=== PATIENT | male | born 1985 | race Two or more races ===

== ENCOUNTER 2016-06-08 21:05 | Emergency (ER) | payer OTHER, MEDICAID ==
--- NOTE | 2016-06-08 22:22 | EDPHY ---
H & P Stated Complaint: constipation x2days, feeling unwell, nausea Time Seen by Provider: 06/08/16 22:07 HPI/ROS: CC: Feeling unwell HPI: 31 year old male with a history of autism and schizophrenia presenting complaining of feeling unwell for the last week. He is currently living with his aunt nonfocal. His father in February. And is concerned that he might be constipated as he is not aware of him having a bowel movement last week or so. Patient is complaining of some right arm pain. States he had a blood draw for his Clozaril a monitoring earlier today. Denies any injuries. No fevers or chills. No headache. No nausea or vomiting. Chest pain shortness of breath. There is no pain with moving his arm. There has been no swelling. Is feeling a little bit anxious. ROS: 10 point Review of Systems is negative except as noted in the HPI. Past medical history: Autism, schizophrenia Allergies: No known drug allergies Physical exam: Gen: Awake, Alert, No Distress HEENT: Ears: Bilateral TMs are normal, no erythema or bulging. External auditory canals are clear. Nose: no rhinorrhea Eyes: PERRLA, EOMI Mouth: Moist mucosa Neck: Supple, no JVD Chest: nontender, lungs clear to auscultation Heart: S1, S2 normal, no murmur Abd: Soft, non-tender, no guarding Back: no CVA tenderness, no midline tenderness Ext: no edema, non-tender Skin: no rash Neuro: CN II-XII intact, Sensation grossly intact, Strength 5/5 in bilateral upper and lower extremities - Personal History Current Tetanus/Diphtheria Vaccine: Yes Current Tetanus Diphtheria and Acellular Pertussis (TDAP): Yes Tetanus Vaccine Date: less than 5 years - Medical/Surgical History Hx Asthma: No Hx Chronic Respiratory Disease: No Hx Diabetes: No Hx Cardiac Disease: No Hx Renal Disease: No Hx Cirrhosis: No Hx Alcoholism: No Hx HIV/AIDS: No Hx Splenectomy or Spleen Trauma: No Other PMH: austism, psychosis - Social History Smoking Status: Never smoked Constitutional: Initial Vital Signs Temperature (C) 36.8 C 06/08/16 21:20 Heart Rate 99 06/08/16 21:20 Respiratory Rate 16 06/08/16 21:20 Blood Pressure 137/92 H 06/08/16 21:20 O2 Sat (%) 95 06/08/16 21:20 O2 Delivery Mode Room Air Allergies/Adverse Reactions: No Known Allergies Allergy (Unverified 06/08/16 21:20) Home Medications: Medication Instructions Recorded Clozaril (*) 06/08/16 Medical Decision Making ED Course/Re-evaluation: 31-year-old male coming in complaining of just feeling unwell but has very nonspecific complaints. He has a completely benign exam. Is a extremity exam is unremarkable. Has been abdomen is soft and nontender. Is not appear constipated at this time. He has no palpable: Her stool. He has had increased stressors and has a cousin who is been visiting. He has had a lot of changes in his routine which is very disruptive for his autism. He would like to go home at this time. There is no findings suggestive of acute infection or other process at this time. And is happy to take him home and does not feel there is any thing Ciaran, she is mostly concerned about constipation does not appear constipated on clinical exam today. Will discharge with follow up with primary care physician. Departure - Departure Disposition: Home, Routine, Self-Care Clinical Impression: Anxiety Condition: Good Instructions: Anxiety (ED) Additional Instructions: [facility], call them tomorrow for further assistance. Follow up with primary care physician in 2-3 days for re-evaluation for any concerns. Referrals: Priyanka Arthur MD [Medical Doctor] - As per Instructions
[2016-06-08 22:31] VITALS: BP 132/88; PULSE 95; RESP 18; TEMP 98.6; O2SAT 98
== END 2016-06-08 22:34 | disposition home or self-care (01) ==
DX: F41.9 Anxiety disorder, unspecified (principal)
CPT/HCPCS: 85025-PO

== ENCOUNTER → 2017-03-07 | Outpatient (CLI) | payer OTHER, MEDICAID | LOC: CIMAGING 11:14 | PROVIDERS: ATTEND Psychiatry & Neurology Neurology | DX: R41.3 Other amnesia (principal); F25.0 Schizoaffective disorder, bipolar type | CPT/HCPCS: 70450-PO ==

== ENCOUNTER 2017-03-28 14:13 | Emergency (ER) | payer OTHER, MEDICAID ==
--- NOTE | 2017-03-28 15:21 | EDPHY ---
H & P Stated Complaint: psych eval--not si or hi--off meds-?? - Personal History Current Tetanus/Diphtheria Vaccine: Unsure Current Tetanus Diphtheria and Acellular Pertussis (TDAP): Unsure Tetanus Vaccine Date: less than 5 years - Medical/Surgical History Hx Asthma: No Hx Chronic Respiratory Disease: No Hx Diabetes: No Hx Cardiac Disease: No Hx Renal Disease: No Hx Cirrhosis: No Hx Alcoholism: No Hx HIV/AIDS: No Hx Splenectomy or Spleen Trauma: No Other PMH: austism, psychosis - Social History Smoking Status: Never smoked Time Seen by Provider: 03/28/17 14:42 HPI/ROS: CHIEF COMPLAINT: Irritability, agitation, history of autism spectrum disorder HISTORY OF PRESENT ILLNESS: 31-year-old male history of autism spectrum disorder [facility], lives with aunt, in the ER with onto after she took him [facility], they referred him to the ER for evaluation did not feel he met criteria for an M1 hold that time. No SI or HI. The aunt describes the patient has been experiencing increased agitation, has been pacing incessantly, experiencing insomnia, feels that he is not adequately managed on his current cause rule prescription/dose. PRIMARY CARE PROVIDER: REVIEW OF SYSTEMS: A ten point review of systems was performed and is negative with the exception of the items mentioned in the HPI PAST MEDICAL & SURGICAL HISTORY: Autism spectrum disorder SOCIAL HISTORY:lives with aunt PHYSICAL EXAM (Prior to examination, patient consented to physical exam, hands were washed and my usual and customary physical exam procedures followed) 1) GENERAL: poorly kept, pacing , alert and oriented. Appears to be in no acute distress. He is pacing 2) HEAD: Normocephalic, atraumatic 3) HEENT: Pupils equal, round, reactive to light bilaterally. Sclera anicteric. 4) NECK: Full range of motion, no meningeal signs. 5) LUNGS: Clear auscultation bilaterally, no wheezes, no rhonchi, no retractions. 6) HEART: Regular rate and rhythm, no murmur, no heave, no gallop. 7) ABDOMEN: No guarding, no rebound, no focal tendernessn, 8) MUSCULOSKELETAL: No peripheral edema or discoloration. 9) BACK: no obvious trauma, no visual or palpable abnormality. 10) SKIN: No rash, no petechiae. 11) Psychiatric: Patient is oriented X 3, there is no agitation. DIFFERENTIAL DIAGNOSIS: in no particular order including but not limited to autism spectrum disorder, suicidal ideation, homicidal ideation (George Florian Jnaae) Constitutional: Initial Vital Signs Temperature (C) 37.0 C 03/28/17 14:30 Heart Rate 81 03/28/17 14:30 Respiratory Rate 16 03/28/17 14:30 Blood Pressure 114/80 03/28/17 14:30 O2 Sat (%) 97 03/28/17 14:30 O2 Delivery Mode Room Air Allergies/Adverse Reactions: No Known Allergies Allergy (Unverified 06/08/16 21:20) Home Medications: Medication Instructions Recorded Clozaril (*) 06/08/16 Medical Decision Making ED Course/Re-evaluation: 3:20 p.m.: At this time I do not think the patient meets criteria for an M1 hold. He is pacing and appears anxious. Will administer oral Ativan and re- evaluate. 5:00 p.m.: Care turned over to Dr. Prashanth Garcia at this time (Geroge Florian Janae) Other Provider: Patient remained stable over course of my shift. Signed out to Dr. Bee at 11pm. (Prashanth Garcia) - Data Points Laboratory Results: Laboratory Results 03/28/17 15:20 03/28/17 15:20 Medications Given: Discontinued Medications Clozapine (Clozaril) 200 mg PO EDNOW ONE Stop: 03/28/17 19:27 Last Admin: 03/28/17 19:45 Dose: 200 mg Diazepam (Valium) 5 mg PO EDNOW ONE Stop: 03/28/17 15:25 Last Admin: 03/28/17 15:26 Dose: 5 mg Diazepam (Valium) 5 mg PO EDNOW ONE Stop: 03/28/17 20:06 Last Admin: 03/28/17 20:24 Dose: 5 mg Diazepam (Valium) 5 mg PO EDNOW ONE Stop: 03/28/17 21:42 Last Admin: 03/29/17 09:29 Dose: 5 mg Diazepam (Valium) 5 mg PO EDNOW ONE Stop: 03/29/17 10:27 Last Admin: 03/29/17 10:30 Dose: 5 mg Lorazepam (Ativan) 1 mg PO EDNOW ONE Stop: 03/28/17 15:24 Last Admin: 03/28/17 15:32 Dose: Not Given Nicotine (Nicoderm Cq) 14 mg TD ONCE ONE Stop: 03/29/17 05:27 Last Admin: 03/29/17 05:49 Dose: 14 mg Olanzapine (Zyprexa Zydis) 5 mg PO EDNOW ONE Stop: 03/28/17 21:25 Last Admin: 03/28/17 21:32 Dose: 5 mg Olanzapine (Zyprexa Zydis) 10 mg PO EDNOW ONE Stop: 03/29/17 11:09 Last Admin: 03/29/17 11:13 Dose: 10 mg Departure - Departure Clinical Impression: Autism spectrum disorder Referrals: NONE *PRIMARY CARE P,. [Primary Care Provider] - As per Instructions
[2017-03-28] MEDS ORDERED: LORazepam 1 MG TAB PO ONE (15:23)
[2017-03-28] MEDS ORDERED: DIAZEPAM 5 MG TAB PO ONE ×3 (15:24→21:41)
[2017-03-28] MEDS ORDERED: DIAZEPAM 5 MG TAB ONE (15:25)
[2017-03-28 15:28] LABS: % IMMATURE GRANULYOCYTES 0.1 % (0.0-1.1); ABSOLUTE IMMATURE GRANULOCYTES 0.01 10^3/uL (0.00-0.10); ADD DIFF? NO; ADD MORPH? NO; ADD SCAN? NO; ATYPICAL LYMPHOCYTE FLAG 0 (0-99); FRAGMENT RBC FLAG 0 (0-99); HEMOGLOBIN 16.7 g/dL (13.7-17.5); LEFT SHIFT FLG 0 (0-99); LIPEMIA HEMOLYSIS FLAG 90 (0-99); MEAN CELL HEMOGLOBIN CONCENTR. 35.5 g/dL (32.4-36.7); MEAN CELL VOLUME 87.2 fL (81.5-99.8); MEAN PLATELET VOLUME 11.1 fL (8.7-11.7); PLATELET CLUMPS FLAG 0 (0-99); PLATELET COUNT 194 10^3/uL (150-400); RED BLOOD CELL COUNT 5.39 10^6/uL (4.40-6.38); RED CELL DISTRIBUTION WIDTH 12.4 % (11.5-15.2)
[2017-03-28 15:42] LABS: ANION GAP 16 mEq/L (8-16); CALCIUM 9.3 mg/dL (8.5-10.4); CARBON DIOXIDE 20 mEq/l (22-31); CHLORIDE 109 mEq/L (97-110); CREATININE 0.8 mg/dL (0.7-1.3); ETHANOL SERUM < 10 mg/dL (0-10); GLOMERULAR FILTRATION RATE > 60; GLUCOSE 109 mg/dL (70-100); POTASSIUM 4.4 mEq/L (3.5-5.2); SODIUM 145 mEq/L (134-144)
[2017-03-28] MEDS: cloZAPine 100 MG TAB PO ONE (19:45)
[2017-03-28] MEDS ORDERED: OLANZapine DISINTEGR 5 MG TAB PO ONE (21:24)
[2017-03-29] MEDS ORDERED: NICOTINE 14 MG/24 HR PATCH TD ONE (05:26)
[2017-03-29] MEDS ORDERED: DIAZEPAM 5 MG TAB ONE (09:28)
[2017-03-29] MEDS ORDERED: DIAZEPAM 5 MG TAB PO ONE ×2 (10:26→15:03)
[2017-03-29] MEDS ORDERED: OLANZapine DISINTEGR 10 MG TAB PO ONE ×2 (11:08→20:29)
[2017-03-29] MEDS ORDERED: cloZAPine 100 MG TAB PO ONE (19:16)
[2017-03-29] MEDS ORDERED: OLANZapine DISINTEGR 5 MG TAB PO ONE (20:29)
[2017-03-29] MEDS ORDERED: OLANZapine 5 MG TAB ONE (20:32)
[2017-03-30] MEDS ORDERED: OLANZapine 10 MG TAB PO ONE (03:02)
[2017-03-30] MEDS ORDERED: OLANZapine DISINTEGR 10 MG TAB ONE (03:04)
[2017-03-30] MEDS ORDERED: HALOPERIDOL LACT 5 MG/ML INJ ONE (04:22)
[2017-03-30] MEDS ORDERED: HALOPERIDOL LACT 5 MG/ML INJ IM ONE (04:30)
[2017-03-30] MEDS ORDERED: LORazepam 1 MG TAB ONE (09:44)
[2017-03-30] MEDS ORDERED: LORazepam 1 MG TAB PO ONE (09:51)
[2017-03-30] MEDS: cloZAPine 100 MG TAB PO SCH ×2 (13:08→21:13)
[2017-03-30] MEDS ORDERED: cloZAPine 100 MG TAB PO ONE (19:06)
[2017-03-31] MEDS: cloZAPine 100 MG TAB PO SCH ×3 (08:54→21:45)
[2017-03-31] MEDS ORDERED: DIAZEPAM 5 MG TAB PO ONE ×3 (11:00→23:02)
[2017-03-31] MEDS ORDERED: DIAZEPAM 5 MG TAB ONE (11:03)
[2017-03-31] MEDS ORDERED: OLANZapine DISINTEGR 5 MG TAB PO ONE (18:05)
[2017-04-01] MEDS ORDERED: DIAZEPAM 5 MG TAB PO ONE ×4 (11:04→18:49)
--- NOTE | 2017-04-01 16:02 | ASMTCMCOM ---
CM Note CM Note Notes: EPS following patient with attempted placement As of this morning there was a tentative plan for patient to transfer to a host family home. CM met with Libertad Coronado , shared living coordinator with [place], as well as Kimber (EPS worker). Patient was evaluated as "inappropriate" for safe transport and placement in a host family home (see EPS notes for further details). Patient's aunt, Rubina is present for assessment. Kimber with EPS staes that she will continue to work on options for placement of patient this evening. CM has offered to assist in any way we can and will continue to follow with EPS Date Signed: 04/01/2017 04:02 PM Electronically Signed By:Randa Martinez RN
[2017-04-01] MEDS ORDERED: SENNOSIDES 1 TAB PO ONE (16:32)
[2017-04-01] MEDS ORDERED: OLANZapine 5 MG TAB ONE (19:32)
[2017-04-01] MEDS ORDERED: DIAZEPAM 5 MG TAB ONE (19:33)
[2017-04-01] MEDS: DIAZEPAM 5 MG TAB PO ONE ×2 (20:00→20:50)
[2017-04-01] MEDS: cloZAPine 100 MG TAB PO ONE ×3 (20:00→21:53)
[2017-04-01] MEDS: OLANZapine 5 MG TAB PO SCH ×2 (20:00→20:57)
[2017-04-01] MEDS ORDERED: OLANZapine 10 MG/2 ML VIAL IM ONE (20:41)
[2017-04-01] MEDS ORDERED: OLANZapine 10 MG/2 ML VIAL ONE (20:43)
[2017-04-02] MEDS ORDERED: OLANZapine DISINTEGR 5 MG TAB PO ONE (08:05)
[2017-04-02] MEDS ORDERED: cloZAPine 100 MG TAB PO SCH (09:00)
[2017-04-02] MEDS ORDERED: OLANZapine 10 MG/2 ML VIAL ONE (09:02)
[2017-04-02] MEDS ORDERED: OLANZapine 10 MG/2 ML VIAL IM ONE (09:07)
[2017-04-02] MEDS ORDERED: KETAMINE 500 MG/10 ML VIAL IM PRN (09:50)
[2017-04-02] MEDS ORDERED: MIDAZOLAM 10 MG/2 ML VIAL IM ONE (09:51)
[2017-04-02] MEDS ORDERED: DIAZEPAM 5 MG TAB ONE (09:57)
[2017-04-02] MEDS ORDERED: DIAZEPAM 2 MG TAB PO ONE (10:01)
[2017-04-02 10:30] VITALS: TEMP 97.5
[2017-04-02] MEDS ORDERED: MIDAZOLAM 2 MG/2 ML VIAL ONE ×2 (14:26→14:27)
[2017-04-02 14:44] VITALS: BP 110/79; PULSE 100; RESP 18; O2SAT 96
== END 2017-04-02 14:45 ==
DX: F84.0 Autistic disorder (principal)
CPT/HCPCS: 96372; 99285; J2250; 80305; G0480

== ENCOUNTER 2017-04-17 23:22 | Inpatient (IN) | payer OTHER, MEDICAID ==
--- NOTE | 2017-04-17 23:26 | EDPHY ---
Addendum entered and electronically signed by Israel Ceballos MD 04/19/17 15: 50: The patient will be turned over to Dr. Willem Mohr at shift change pending psychiatric disposition. Addendum entered and electronically signed by Israel Ceballos MD 04/19/17 09: 01: I assumed care of the patient at 7 o'clock in the morning pending psychiatric disposition. I did order 10 mg of IV Valium at 9:00 a.m.. Original Note: H & P Source: Patient, EMS - Personal History Tetanus Vaccine Date: less than 5 years - Medical/Surgical History Hx Asthma: No Hx Chronic Respiratory Disease: No Hx Diabetes: No Hx Cardiac Disease: No Hx Renal Disease: No Hx Cirrhosis: No Hx Alcoholism: No Hx HIV/AIDS: No Hx Splenectomy or Spleen Trauma: No Other PMH: austism, psychosis - Social History Smoking Status: Never smoked HPI/ROS: HPI CHIEF COMPLAINT: Aggressive behavior HISTORY OF PRESENT ILLNESS: This patient is a 31-year-old male, presents to the emergency room by EMS and police in 4 point restraints and a spit mask, his aunt who has healthcare [id number] called 911 as the patient has had aggressive behavior at home that she could not control. The aunt called police for assistance, and the patient was brought to the er. Upon arrival to the er he actively agitated and spitting through the spit mask at staff. He will not answer any of my questions. He is agitated and aggressive. I am unable to obtain any history from him upon arrival. Past Medical History: Autism, ?schizophrenia. Past Surgical History: No recent surgery Social History: Lives with his aunt. Denies drugs alcohol tobacco products. Family History: Noncontributory ROS REVIEW OF SYSTEMS: Limited due to patient's interaction and mental state. Exam Constitutional aggressive behavior, does not answer any of my questions, triage nursing summary reviewed, vital signs reviewed, awake/alert. Eyes normal conjunctivae and sclera, EOMI, PERRLA. HENT normal inspection, atraumatic, moist mucus membranes, no epistaxis, neck supple/ no meningismus, no raccoon eyes. Respiratory clear to auscultation bilaterally, normal breath sounds, no respiratory distress, no wheezing. Cardiovascular rate normal, regular rhythm, no murmur, no edema, distal pulses normal. Gastrointestinal soft, non-tender, no rebound, no guarding, normal bowel sounds, no distension, no pulsatile mass. Genitourinary no CVA tenderness. Musculoskeletal no midline vertebral tenderness, full range of motion, no calf swelling, no tenderness of extremities, no meningismus, good pulses, neurovascularly intact. Skin pink, warm, & dry, no rash, skin atraumatic. Neurologic awake, alert and oriented x 3, AAOx3, moves all 4 extremities equally, motor intact, sensory intact, CN II-XII intact Psychiatric agitated, aggressive. Heme/Lymph/Immune no lymphadenopathy. Differential Diagnosis: Includes but is not limited to in a particular order acute aggressive behavior, mood disorder, bipolar disorder, drug intoxication, psychosis Medical Decision Making: Plan for this patient due to his aggressive behavior and spitting at staff he will need to be sedated, I have ordered him 10 mg IM Zyprexa. We will get him out of 4 point restraints as soon as possible once he is sleepy and not spitting and aggressive with staff. At this time he is going to need medication for his safety as well as staff safety. Re-evaluation: 0134: Detainer placed due to aggressive behavior/threat to staff and himself. 0134: Patient is agitated sitting up in bed and screaming. He has already had Zyprexa 10 mg IM, additionally he has had 10 mg IV Valium. I have ordered him 50 mg IV Benadryl and 20 mg IM Geodon. Patient will be placed on full stained glass installer, closely observed, IV fluids. 0155: Patient is acutely agitated and screaming he is requiring a [place] belt and security at bedside. He is agitated and screaming and shaking. This despite 10 mg IV Valium, 20 mg IM Geodon, 50 mg IV Benadryl, 10 mg IM Zyprexa. I have ordered him IV fluids to prevent rhabdomyolysis. Additionally I have now ordered him 5 mg IV Versed for ongoing agitation. 0326: Patient re-evaluated. Patient is sleeping. He is on full stained glass installer heart rate 71. Pulse ox 99% on 2 L nasal cannula, blood pressure 112/ 67. Resting comfortably. 0500AM patient became aggressive and required 20 mg IM Geodon, 50 mg IM Benadryl. No resting comfortably. 0645: Patient sleeping. Patient signed over to Dr. Ceballos at 7am shift-change. Pending Placement. 0700AM 04/20/17: Patient has been sleeping. No acute events overnight. Before did receive medication earlier before my shift. Patient has not had anything oral to eat today I have ordered him another L of fluid to keep him well hydrated. Per nursing staff he is drinking fluids but not eating. Psychiatry is to see him today. Patient signed over to Dr. Barnes at 7am (Raman Wilson) Constitutional: Initial Vital Signs Heart Rate 76 04/17/17 23:33 Respiratory Rate 15 04/17/17 23:33 Blood Pressure 126/69 H 04/17/17 23:33 O2 Sat (%) 96 04/17/17 23:33 O2 Delivery Mode Room Air O2 (L/minute) 2 Allergies/Adverse Reactions: buspirone [From BuSpar] Allergy (Verified 03/30/17 12:34) Anxiety citalopram [From Celexa] Allergy (Verified 03/30/17 12:34) MANIC lorazepam [From Ativan] Allergy (Verified 03/30/17 12:34) SEDATION/ISOLATION/"ACTING OUT" paroxetine [From Paxil] Allergy (Verified 03/30/17 12:34) Anxiety ziprasidone [From Geodon] Allergy (Verified 03/30/17 12:34) Other-Enter Comments Home Medications: Medication Instructions Recorded Iron/FA/Dha/Epa/Fad/Nadh/Mv47 1 each PO DAILY 04/20/17 [Enlyte Softgel] Medical Decision Making ED Course/Re-evaluation: I assumed care of the patient 0700 pending psychiatric disposition. (Israel Ceballos) 4:45 p.m.. Patient is now agitated. He has been given Zyprexa and Valium and ketamine and Geodon. He will be given Valium and Zyprexa. (Willem Mohr) Other Provider: Care assumed from Dottie at 700 with disposition pending; case management and EPS to be involved. 714: Vital signs at this time include temperature 36.3degrees, afebrile. 1330: The patient had EPS evaluation, plan for inpatient psychiatric placement , getting more agitated and trying to room around the emergency department naked. Spitting at people and verbally abusive, 10 mg of IM Zyprexa administered. 1350: Valium 10mg for continued agitation. 1420: now on mental health hold by phone specialist from [facility], plan to admit to critical access hospital. 1500: Signed out to Julia, nolberto pending. (Oneal Deleon) I assumed care of this patient at 3:00 p.m. from change of shift from Dr Oneal Deleon. At 3:30 p.m. I was asked to provide additional sedation for the patient. Patient had previously received 10 mg of IM Zyprexa and 10 mg of Valium IV approximately an hour ago. Chart was reviewed. Patient required significant medications last night in order to provide sedation for his safety. He received 20 mg of Geodon, patient 10 mg of Valium, 2 mg of Benadryl. This provided sedation. Patient was reexamined at midnight. He is sleeping. He has been somewhat restless but overall has been following some simple commands. Of note he has been incontinent is in an adult diaper. We have not obtained a urinalysis. Discussed possibility of placing a [place] catheter to keep the patient dry as well as to obtain a urine sample. Patient's care was assumed by Dr. Raman Wilson at 12 midnight. We are awaiting placement. (Osiris Dumont) 7:30 a.m. on my evaluation the patient is lying in bed with his eyes open. He appears to be somewhat catatonic. He is not rigid. He has not been eating for the last 3 days. His glucose is low. His bicarb is decreasing. His CK is increasing. He has received 3 L of IV fluid in the last 3 days. We will start him on D5 normal saline. I think that the patient will require medical admission as we continue to work on psychiatric treatment and placement. This is a very difficult patient and very difficult situation. I feel that the patient would likely benefit from long-term state psychiatric hospitalization but at least for the short time will need a combination of medical/psychiatric care 7:40 a.m. I discussed the case with billing receiving who agrees with medical admission at this point and would very much appreciate psychiatrists input . ( Daniel Barnes) Care Turn Over: Care to Dr. Wilson at 11:00 p.m. (Willem Mohr) - Data Points Laboratory Results: Laboratory Results 04/20/17 06:40 04/20/17 06:40 Medications Given: Enoxaparin Sodium (Lovenox) 40 mg SC DAILY SERENITY Stop: 10/18/17 08:59 Last Admin: 04/21/17 08:19 Dose: 40 mg Dextrose/Sodium Chloride (D5w 1/2 Ns) 1,000 mls @ 200 mls/hr IV CONT SERENITY Stop: 10/17/17 10:59 Last Admin: 04/21/17 15:30 Dose: 1,000 mls Lorazepam (Ativan Injection) 0.5 - 1 mg IVP Q4 PRN PRN Reason: Anxiety, Unable to Take PO Stop: 10/17/17 16:41 Last Admin: 04/21/17 08:19 Dose: 1 mg Miscellaneous Medication (Iron/Fa/Dha/Epa/Fad/Nadh/Mv47 [Enlyte Softgel]) 1 each PO DAILY SERENITY Stop: 10/17/17 16:44 Last Admin: 04/21/17 08:28 Dose: Not Given Discontinued Medications Clozapine (Clozaril) 12.5 mg PO BID SERENITY Stop: 10/17/17 20:59 Last Admin: 04/20/17 19:04 Dose: 12.5 mg Diazepam (Valium Injection) 5 mg IVP EDNOW ONE Stop: 04/17/17 23:43 Last Admin: 04/17/17 23:56 Dose: 5 mg Diazepam (Valium Injection) 5 mg IVP EDNOW ONE Stop: 04/18/17 01:01 Last Admin: 04/18/17 01:11 Dose: 10 mg Diazepam (Valium Injection) 10 mg IVP EDNOW ONE Stop: 04/18/17 13:53 Last Admin: 04/18/17 13:59 Dose: 10 mg Diazepam (Valium Injection) 10 mg IVP EDNOW ONE Stop: 04/18/17 15:20 Last Admin: 04/18/17 15:43 Dose: 10 mg Diazepam (Valium Injection) 10 mg IVP EDNOW ONE Stop: 04/19/17 04:02 Last Admin: 04/19/17 04:09 Dose: 10 mg Diazepam (Valium Injection) 10 mg IVP EDNOW ONE Stop: 04/19/17 08:58 Last Admin: 04/19/17 09:08 Dose: 10 mg Diazepam (Valium) 5 mg PO EDNOW ONE Stop: 04/19/17 16:58 Last Admin: 04/19/17 17:33 Dose: Not Given Diazepam (Valium Injection) 5 mg IVP ONCALL ONE Stop: 04/20/17 10:54 Last Admin: 04/20/17 09:00 Dose: 5 mg Diphenhydramine HCl (Benadryl Injection) 50 mg IVP EDNOW ONE Stop: 04/18/17 01:34 Last Admin: 04/18/17 01:39 Dose: 50 mg Diphenhydramine HCl (Benadryl Injection) 50 mg IVP EDNOW ONE Stop: 04/18/17 15:20 Last Admin: 04/18/17 15:43 Dose: 50 mg Diphenhydramine HCl (Benadryl Injection) 50 mg IM EDNOW ONE Stop: 04/19/17 04:33 Last Admin: 04/19/17 04:39 Dose: 50 mg Sodium Chloride (Ns) 1,000 mls @ 0 mls/hr IV ONCE ONE PRN Reason: Wide Open Stop: 04/17/17 23:36 Last Admin: 04/17/17 23:56 Dose: 1,000 mls Sodium Chloride (Ns) 1,000 mls @ 0 mls/hr IV ONCE ONE PRN Reason: Wide Open Stop: 04/18/17 01:25 Last Admin: 04/18/17 02:17 Dose: 1,000 mls Sodium Chloride (Ns) 1,000 mls @ 0 mls/hr IV ONCE ONE PRN Reason: Wide Open Stop: 04/18/17 05:26 Last Admin: 04/18/17 05:45 Dose: 1,000 mls Sodium Chloride (Ns) 1,000 mls @ 0 mls/hr IV ONCE ONE PRN Reason: Wide Open Stop: 04/19/17 06:41 Last Admin: 04/19/17 05:50 Dose: 1,000 mls Sodium Chloride (Ns) 1,000 mls @ 0 mls/hr IV EDNOW ONE; Wide Open PRN Reason: Protocol Stop: 04/20/17 06:21 Last Admin: 04/20/17 06:44 Dose: 1,000 mls Dextrose/Sodium Chloride (D5w Ns) 1,000 mls @ 100 mls/hr IV CONT SERENITY Stop: 10/17/17 07:29 Last Admin: 04/20/17 07:44 Dose: 1,000 mls Ketamine HCl (Ketamine) 300 mg IM EDNOW ONE Stop: 04/19/17 12:05 Last Admin: 04/19/17 12:25 Dose: 300 mg Lorazepam (Ativan) 1 mg PO EDNOW ONE Stop: 04/19/17 16:57 Last Admin: 04/19/17 18:53 Dose: Not Given Midazolam HCl (Versed) 5 mg IVP EDNOW ONE Stop: 04/18/17 01:56 Last Admin: 04/18/17 01:58 Dose: 5 mg Olanzapine (Zyprexa Im Injection) 5 mg IM EDNOW ONE Stop: 04/17/17 23:32 Last Admin: 04/17/17 23:58 Dose: Not Given Olanzapine (Zyprexa Im Injection) 10 mg IM EDNOW ONE Stop: 04/17/17 23:33 Last Admin: 04/17/17 23:56 Dose: 10 mg Olanzapine (Zyprexa Im Injection) 10 mg IM EDNOW ONE Stop: 04/18/17 13:27 Last Admin: 04/18/17 13:26 Dose: 10 mg Olanzapine (Zyprexa Zydis) 10 mg PO EDNOW ONE Stop: 04/19/17 11:12 Last Admin: 04/19/17 11:33 Dose: 10 mg Olanzapine (Zyprexa Zydis) 10 mg PO EDNOW ONE Stop: 04/19/17 16:57 Last Admin: 04/19/17 17:33 Dose: Not Given Ziprasidone (Geodon) 20 mg IM ONCE ONE Stop: 04/18/17 01:33 Last Admin: 04/18/17 01:40 Dose: 20 mg Ziprasidone (Geodon) 20 mg IM ONCE ONE Stop: 04/18/17 15:18 Last Admin: 04/18/17 15:43 Dose: 20 mg Ziprasidone (Geodon) 20 mg IM EDNOW ONE Stop: 04/19/17 04:31 Last Admin: 04/19/17 04:39 Dose: 20 mg Departure - Departure Disposition: [facility] Clinical Impression: Aggressive behavior, Autism spectrum disorder, Dehydration Condition: Fair
[2017-04-17] MEDS ORDERED: OLANZapine 10 MG/2 ML VIAL IM ONE ×2 (23:31→23:32)
[2017-04-17] MEDS ORDERED: NS 1,000 ML IV ONE (23:35)
[2017-04-17] MEDS ORDERED: DIAZEPAM 10 MG/2 ML SYR IVP ONE (23:42)
[2017-04-18 00:16] LABS: PLATELET COUNT 220 10^3/uL (150-400)
[2017-04-18] MEDS ORDERED: DIAZEPAM 10 MG/2 ML SYR ONE (00:55)
[2017-04-18 00:57] LABS: CREATINE KINASE 788 IU/L (0-224)
[2017-04-18] MEDS ORDERED: DIAZEPAM 10 MG/2 ML SYR IVP ONE ×3 (01:00→15:19)
[2017-04-18] MEDS ORDERED: NS 1,000 ML IV ONE ×2 (01:24→05:25)
[2017-04-18] MEDS ORDERED: ZIPRASIDONE MESYLATE 20 MG VIAL IM ONE ×2 (01:32→15:17)
[2017-04-18] MEDS ORDERED: MIDAZOLAM 2 MG/2 ML VIAL IVP ONE (01:55)
[2017-04-18] MEDS ORDERED: MIDAZOLAM 10 MG/2 ML VIAL ONE (01:56)
[2017-04-18] MEDS ORDERED: OLANZapine 5 MG TAB PO ONE (12:24)
[2017-04-18] MEDS ORDERED: OLANZapine 10 MG/2 ML VIAL IV ONE (13:21)
[2017-04-18] MEDS ORDERED: OLANZapine 10 MG/2 ML VIAL IM ONE (13:26)
--- NOTE | 2017-04-18 16:46 | ASMTCMCOM ---
CM Note CM Note Notes: Patient brought into the ED from home where he has been staying with his Aunt Rubina ([phone]). Patient had become aggressive at home and required restraints and a spit quiles when transported to the ED. Patient required multiple doses of various sedating medications. Patient was finally able to be evaluated by [facility] Services (formally EPS) today. Patient has been place on an M1 and [facility] is looking for placement, possibly [facility]. Spoke with Libertad Coronado, Rn Resource Nurse at [facility] ([phone]) who is very familiar with patient and the last month's occurrences. Pt had been discharged from [facility] ED to [facility] ([phone]) on 04/02/17. Per Libertad, patient then refused to eat or drink while at and they also did a "medication wash" where they discontinued all of his medications. Patient became severely dehydrated and was admitted to [facility] for rhabdomyolysis for a couple of days. [facility] was then unable to take patient back into their care and so the hospital attempted to get him placed but was unsuccessful. Libertad says patient was discharged home with his Aunt Rubina this last Monday04/14/17 with Librium being the only medication he was prescribed at the time. Libertad said patient was being followed by Dr. Wynn (sp?) at [facility] ([phone]) as an outpatient until pt was able to get in with another psychiatrist. This CM called and left a voicemail for Dr Wynn. Libertad states that Anastasiia Valiente, Access Services Librarian at [facility] ([phone]) has started the process of trying to get patient into [facility] ([facility] but this may take "quite some time" and even possibly need to go to court (?). In the meantime, Libertad is hoping patient can be stabilized and get into [facility]. Libertad has been connected with [facility] Mental Health Animation Director and they are working with Anastasiia to get patient appropriately placed. Libertad provided ED CM # in case we can be of any additional assistance. Date Signed: 04/18/2017 04:45 PM Electronically Signed By:Priyanka Chua RN
[2017-04-19] MEDS ORDERED: DIAZEPAM 10 MG/2 ML SYR IVP ONE ×2 (04:01→08:57)
[2017-04-19] MEDS ORDERED: ZIPRASIDONE MESYLATE 20 MG VIAL IM ONE ×3 (04:25→04:33)
[2017-04-19] MEDS ORDERED: NS 1,000 ML IV ONE (06:40)
[2017-04-19] MEDS ORDERED: OLANZapine DISINTEGR 10 MG TAB PO ONE ×2 (11:11→16:56)
[2017-04-19] MEDS ORDERED: KETAMINE 500 MG/10 ML VIAL IM ONE (12:04)
--- NOTE | 2017-04-19 15:29 | ASMTCMCOM ---
CM Note CM Note Notes: I have discussed discharge planning with [facility] at [facility] and [facility] at [facility] Per Shanice, [facility] has not been able to find placement for patient and they will be reaching out to [facility] in an effort to coordinate care and D/C planning. [facility] continues to communicate with [facility] as well as to work on alternative D/C planning. CM will continue to follow and asssit where/when possible Date Signed: 04/19/2017 03:29 PM Electronically Signed By:Randa Martinez RN
[2017-04-19] MEDS ORDERED: LORazepam 1 MG TAB PO ONE (16:56)
[2017-04-19] MEDS ORDERED: DIAZEPAM 5 MG TAB PO ONE (16:57)
[2017-04-20] MEDS ORDERED: NS 1,000 ML IV ONE (06:20)
[2017-04-20 06:47] LABS: PLATELET COUNT 247 10^3/uL (150-400)
[2017-04-20 07:07] LABS: CREATINE KINASE 1006 IU/L (0-224)
[2017-04-20] MEDS ORDERED: D5W NS 1,000 ML IV SCH (07:30)
[2017-04-20] MEDS ORDERED: DIAZEPAM 10 MG/2 ML SYR ONE (08:47)
[2017-04-20] MEDS ORDERED: DIAZEPAM 10 MG/2 ML SYR IVP ONE (10:53)
[2017-04-20] MEDS ORDERED: ACETAMINOPHEN 325 MG TAB PO PRN (11:28)
[2017-04-20] MEDS ORDERED: ONDANSETRON 4 MG/2 ML VIAL IVP PRN (11:28)
[2017-04-20] MEDS ORDERED: ONDANSETRON DISINTEGRATING 4 MG TAB PO PRN (11:28)
[2017-04-20] MEDS ORDERED: LORazepam 2 MG/ML INJ IVP PRN (11:28)
--- NOTE | 2017-04-20 12:13 | GHP ---
[f rep st] HISTORY AND PHYSICAL DATE OF ADMISSION: 04/20/2017 HISTORY OF PRESENT ILLNESS: This is a 31-year-old male who presented to the emergency department wit h severe agitation and aggressive behavior. He initially presented on April 17 with aggressive be havior in which he was spitting at patients and very difficult to control. He apparently lives with his aunt, and when he became aggressive at home she called for assistance, and the patient was lilia t to the ED where he was agitated, aggressive and spitting and had a spit mask placed on him. Effort s were made to calm the gentleman throughout the next 24 hours and obtain a psychiatric evaluation. During that time, he received several doses of Zyprexa, Ativan, Valium, Geodon. He would variously c neena and then become more and more agitated. Ultimately over the next 24 hours it was decided that he needed acute admission, and the admission has now been obtained. He was then admitted to the ICU wh ere he once again became aggressive and was given Valium 5 mg IV. Because of his prolonged state of aggression, agitation and motor activity, consideration was given for rhabdomyolysis and it is noted that his CK is approximately 1000 with a sodium of 145. He had received IV fluids of D5 normal salin e in the emergency department during much of his stay but has been now changed to D5 half-normal sali ne due to the hypernatremia. We are aggressively hydrating him and maintaining sedation. PAST MEDICAL HISTORY: There is no other past medical history available. His aunt currently is not a vailable, and this is our initial information of this gentleman here at [facility]. I have seen him in the ICU where he is now calm and simply just staring forward. He does not respond t o any questions, but he is now sedated. He is not aggressive, and he is not spitting. He is being m aintained in 4-point restraints. Further efforts will be made to obtain information on his past hist ory. MEDICATIONS: That are known at home so far is only an iron supplementation. He carries a diagnosis of anxiety and autism spectrum disorder. ALLERGIES: Reported to be to buspirone, citalopram, lorazepam, paroxetine ziprasidone. FAMILY HISTORY: Not available. SOCIAL HISTORY: Not available. REVIEW OF SYSTEMS: Could not be obtained from the patient or the medical record, although in review of the record there is no evidence that he has had an acute illness or acute trauma. PHYSICAL EXAMINATION: GENERAL: I am seeing the gentleman in the ICU. At this point he is calm but has received significant doses of medications to achieve this. On his arrival in the ICU, he again r equired Valium 5 mg IV for sedation as he became agitated. He is maintained on 4-point restraints. The patient does not respond to verbal requests. He is alert, sitting up in the bed, staring and gregg ears in no distress. VITAL SIGNS: At this time are normal with normal oxygenation on room air. ELIZABETH NT: No signs of scalp trauma or facial trauma. The gentleman stares straight ahead and then prefers to look to the right. He does not track his eye movements. Tympanic membranes are man bilaterally . Throat appears to be benign without signs of trauma. LUNGS: Clear without wheezing or rales, alt cassandra the patient did not cooperate with deep breaths. HEART: Regular rate and rhythm. Sinus rhyth m and a regular rate of approximately 80. S1 and S2 are normal without gallops. JVP could not be we ll assessed but appeared to be normal. ABDOMEN: Nontender, benign, without masses or tenderness or signs of trauma. EXTREMITIES: No edema, cyanosis, or clubbing, signs of trauma or track linder. JAKE ROLOGIC: Shows a gentleman who is alert but does not respond verbally and interact in a cooperative fashion. He is not aggressive at this time. His cranial nerves appear to be grossly intact, althoug h he did not track eye movements. Motor and sensory function appear grossly intact. Babinskis are p lantar. LABORATORY: WBC is normal at 9000, hemoglobin is now hemoconcentrated at 18.3 with a normal differen tial. Chemistry panel shows hypernatremia with sodium of 145 with an anion gap of 20. His alcohol l evel was less than 10. ASSESSMENT: 1. Acute agitation and aggressive behavior. 2. Acute psychosis of an uncharacterized type. 3. Hypernatremia, metabolic acidosis, secondary to prolonged agitation. 4. Rhabdomyolysis with a CK of 1000 secondary to agitation. PLAN: The gentleman will be admitted on an M1 hold in the ICU for clearance of his rhabdomyolysis an d maintaining sedation. Restraints will be used as necessary. Changing his IV fluids from D5 normal saline to D5 half-normal saline and increasing his rate due to his rhabdomyolysis and metabolic acid osis. Electrolytes will be watched on a q.6-12 basis, and a psychiatric consultation obtained. In a ddition, we will review his numerous recent medications. An ECG will be performed to assess his QT i nterval. At this point, I am not going to keep the gentleman on the corridor redevelopment manager as it is quite d ifficult to do due to his variable state of cooperation but will repeat ECGs as needed and as concern ed. Psychiatry will be needed regarding his Clozaril. He has probably not taken any Clozaril for th e last several days, and thus the initial dose will have to start again and loading. His DVT prophylaxis will be with Lovenox. CODE STATUS: Full. BILLING: The gentleman will be admitted for inpatient care on an M1 hold /[id number]/MODL
--- NOTE | 2017-04-20 12:42 | ASMTCMCOM ---
CM Note CM Note Notes: Chart reviewed. Patient reviewed in rounds. Medically approaching stablity,main need is Psychiatric evaluation and placement. Dr. Christopher and [facility] services assisting with searching for appropriate placement. CM to follow. Date Signed: 04/20/2017 12:42 PM Electronically Signed By:Selena Graff RN
--- NOTE | 2017-04-20 12:50 | CPEKG ---
Heart Rate: 69 RR Interval: 870 P-R Interval: 160 QRSD Interval: 94 QT Interval: 396 QTC Interval: 425 P Aroda: 92 QRS Aroda: 83 T Wave Aroda: 69 EKG Severity - NORMAL ECG - EKG Impression: SINUS RHYTHM Electronically Signed By: Franky Montoya 20-Apr-2017 16:25:19
--- NOTE | 2017-04-20 17:02 | PDMN ---
Medical Necessity Medical necessity: Pt meets IP criteria per MD; pt on M1 hold for acute psychosis, agitation, aggressive behavior, hypernatremia & rhabdomyolysis; admit to ICU for further workup/monitoring, aggressive hydration, sedation & Psych eval; per H&P & order 04/20/17
[2017-04-20] MEDS: [UNRECOGNIZED DRUG - OTHER] PO SCH (18:11)
[2017-04-20] MEDS: D5W 1/2 NS 1,000 ML IV SCH ×2 (19:04→23:34)
[2017-04-20] MEDS ORDERED: cloZAPine 25 MG TAB PO SCH (21:00)
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
[2017-04-21] MEDS: LORazepam 2 MG/ML INJ IVP PRN ×2 (03:10→08:19)
[2017-04-21] MEDS: D5W 1/2 NS 1,000 ML IV SCH ×4 (04:55→21:06)
[2017-04-21 06:11] LABS: CREATINE KINASE 566 IU/L (0-224)
[2017-04-21] MEDS: ENOXAPARIN 40 MG/0.4 ML SYR SC SCH (08:19)
[2017-04-21] MEDS: [UNRECOGNIZED DRUG - OTHER] PO SCH (08:28)
--- NOTE | 2017-04-21 17:27 | HOSPPROG ---
Hospitalist Progress Note Assessment/Plan: 31 yo male with acute pychosis; required richelle doses of sedation Valium 60mg; benadryl 200mg; ketamine 300 mg; zyprexa 40mg IM; Geodon 60mg; Versed 10mg Psychiatry Rx clozoril as patient had been tapered and possibly withdrawal from this. -acute psychosis -Neuroleptic malignant syndrome: possible but doubt, no fever or rigidity -elecdtroyle disorder -rhabdomyolysis possible 2/2 IM injections and restraints. Improving Plan: sedate with clozoril and ativan only; transfer possible to psychiatry tomorrow if eating and drinking and behavior is settled discussed with Dr Indu Christopher for psychiatry Time: 55 minutes Subjective: no complaints Objective: Vital Signs Temp Pulse Resp BP Pulse Ox 36.6 C 75 18 90/64 L 97 04/21/17 15:58 04/21/17 15:58 04/21/17 15:58 04/21/17 15:58 04/21/17 15:58 Laboratory Results 04/21/17 05:35 04/20/17 04/21/17 04/22/17 05:59 05:59 05:59 Intake Total 3521 150 Output Total 100 Balance 3421 150 - Time Spent With Patient Time Spent with Patient: greater than 35 minutes Time Spent with Patient: Greater than 35 minutes spent on this patients care, greater than 50% of time spent counseling, educating, and coordinating care regarding the above mentioned plan. - Pending Discharge Pending Discharge Within 24 Hours: Yes Pending Discharge Date: 04/22/17 Pending Discharge Time: 11:00 - Physical Exam Constitutional: no apparent distress, other (acutely ill) Eyes: PERRL, anicteric sclera Ears, Nose, Mouth, Throat: moist mucous membranes, hearing normal Cardiovascular: regular rate and rhythym, no murmur, rub, or gallop Respiratory: no respiratory distress, no rales or rhonchi, clear to auscultation Gastrointestinal: normoactive bowel sounds, soft, non-tender abdomen, no palpable masses Genitourinary: no bladder fullness Skin: warm Musculoskeletal: full muscle strength Neurologic: CN II-XII Intact Psychiatric: agitated ICD10 Worksheet Patient Problems: Problems Problem Status Onset Aggressive behavior Acute Autism spectrum disorder Acute Dehydration Acute
[2017-04-21] MEDS ORDERED: cloZAPine 25 MG TAB PO SCH (21:00)
[2017-04-22] MEDS: D5W 1/2 NS 1,000 ML IV SCH (02:10)
[2017-04-22 05:30] LABS: CREATINE KINASE 279 IU/L (0-224)
[2017-04-22] MEDS ORDERED: levETIRAcetam 500 MG in NS 100 ML IV ONE (08:41)
[2017-04-22] MEDS: LORazepam 2 MG/ML INJ IVP PRN ×5 (08:45→22:25)
[2017-04-22] MEDS ORDERED: levETIRAcetam 1,000 MG in NS 100 ML IV ONE (08:51)
--- NOTE | 2017-04-22 10:16 | GCON ---
[f rep st] CONSULTATION NEUROLOGIC CONSULTATION REFERRING PHYSICIAN: Real Apple Jr., MD HISTORY OF PRESENT ILLNESS: This patient is a 31-year-old gentleman, who I have never met before, bu t I am asked to see in neurologic consultation on an emergent basis in the setting of acute seizure a ctivity. The patient was admitted to the hospital on April 17 for acute inappropriate behavior with psychosis, well outlined in the emergency room records. There is also a detailed neurologic pricila cription and psychiatric history and exam from Dr. Christopher, when she first saw him on April 20. Following his arrival to the emergency room, he was receiving a variety of medications that include Z yprexa, Geodon, Valium, ketamine, and Versed in high doses. He had apparently been stable on clozapi ne. However, was eventually taken off this at an outside facility, and that detail I am not complete ly clear on. In any case, he was with his aunt when he decompensated and required attention. There is not mention of any known seizure disorder. Today, around, a little before 9 a.m., he was witnesse d to have an episode of generalized convulsive activity, lasting about 30 seconds, but not a full-blo wn postictal state apparently, and then another event occurred soon after, similar, followed by a thi rd event, where he seemed to have a little more focal movements, but again is not having a classic po stictal lethargy. He went for head CT that shows a possible area of small bleeding in the right post erior parietal region about a cm in size. No evidence of large hemorrhage or stroke. As Dr. Drea smith said, it is an equivocal very small area. In any case, he has not had any more seizure activity since receiving an acute dose of benzodiazepine and is in the process of being loaded with Keppra. He will not initially speak with me to give any more additional history. EXAM: VITAL SIGNS: The blood pressure is 105/61, pulse of 73, respirations 20, temperature 36.7. G ENERAL: He is a little disheveled and poorly groomed, in no acute distress. He is sitting quietly i n the bed, initially holding a magazine, and looking toward it, but I cannot tell if he is actually r eading it. He, for the most part will not answer questions, but then after about 5 minutes, he clear ly stated that he needed to go the bathroom, so he got up on his own, walked to the bathroom and urin ated. His examination participation is limited, but he would look up at me briefly, and seems to hav e normal tracking. Pupils are just about a mm or 2 with limited reactivity. I do not detect any fac ial asymmetry. Motor exam does not reveal focal weakness. I do not detect any evident weakness. He seems to have intact sensory phenomena and his reflexes are brisk, but symmetric. I have also reviewed the head CT and agree with Dr. Carty that there is this very small area in the right occipital or posterior parietal lobe that could represent a small area of bleeding. I do not think this is consistent with a subarachnoid hemorrhage. I do not think he has had a hemorrhagic stroke. In any case, we will likely follow this up in a week or so with a repeat head CT or maybe l ater an MRI, depending on his clinical course. For now, I agree with using benzodiazepine to control any acute seizures. These episodes were probably seizure versus nonepileptic seizure activity. The atypical feature is a relatively minimal postictal state, noted by the nurse, for someone who is hav ing a generalized convulsion. However, we have to err on the possibility of ongoing seizure risk, so I agree with loading him with Keppra and continuing that 500 mg b.i.d. Total unit time of 50 minutes. /[id number]/MODL
[2017-04-22] MEDS: [UNRECOGNIZED DRUG - OTHER] PO SCH (11:06)
[2017-04-22] MEDS ORDERED: PROTOCOL MAGNESIUM 1 DOSE IV PRN (13:18)
[2017-04-22] MEDS ORDERED: PROTOCOL CALCIUM 1 DOSE IV PRN (13:18)
[2017-04-22] MEDS ORDERED: PROTOCOL K PHOSPHATE 1 DOSE IV PRN (13:18)
[2017-04-22] MEDS ORDERED: PROTOCOL POTASSIUM 1 DOSE MISC PRN (13:18)
[2017-04-22] MEDS ORDERED: MAGNESIUM SULF 1 GM/DEXTROSE 100 ML IV ONE (13:26)
[2017-04-22] MEDS: POTASSIUM CL 10 MEQ TAB PO ONE ×2 (13:51→14:33)
[2017-04-22] MEDS: ENOXAPARIN 40 MG/0.4 ML SYR SC SCH (13:53)
--- NOTE | 2017-04-22 17:32 | HOSPPROG ---
Hospitalist Progress Note Assessment/Plan: 31 yo male with acute pychosis; required richelle doses of sedation: Valium 60mg; benadryl 200mg; ketamine 300 mg; zyprexa 40mg IM; Geodon 60mg; Versed 10mg. All given prior to admission in the emergency department. Today the gentleman but a short grand mal seizure with a short postictal state and a 2nd grand mal seizure. He was treated in the ICU with Ativan and then loaded with Keppra. CT scan of the head was ordered and he was consult with Neurology. Currently the only antipsychotic the patient is receiving his Clozaril. Sedation is being achieved with Ativan. CT scan of the head showed a very small intercerebral hemorrhage possibly rate related to trauma prior to his admission. This finding is new as compared to a previous CT scan of January 2017. -acute psychosis of undetermined etiology. Psychiatry is consulting. -Neuroleptic malignant syndrome: possible but doubt, no fever or rigidity -elecdtroyle disorder -rhabdomyolysis possible 2/2 IM injections and restraints. Improving. This is likely secondary IM injections and not clinically significant. Plan: sedate with clozoril and ativan only; stabilize seizure activity with Keppra and is stable and alert may be transferred to Behavioral Medicine on . discussed with Dr Indu Christopher for psychiatry and with Dr. Dav Nunez with Neurology. CT scan was reviewed by myself and with Radiology. Time: 75 min of critical care time Subjective: Patient suffered a grand mal seizure during my examination Objective: Vital Signs Temp Pulse Resp BP Pulse Ox 36.6 C 75 16 97/59 L 98 04/22/17 16:00 04/22/17 16:00 04/22/17 16:00 04/22/17 16:00 04/22/17 16:00 Laboratory Results 04/22/17 05:00 04/21/17 04/22/17 04/23/17 05:59 05:59 05:59 Intake Total 3521 4862 Output Total 100 Balance 3421 4836 - Time Spent With Patient Time Spent with Patient: greater than 35 minutes Time Spent with Patient: Greater than 35 minutes spent on this patients care, greater than 50% of time spent counseling, educating, and coordinating care regarding the above mentioned plan. - Pending Discharge Pending Discharge Within 24 Hours: No Pending Discharge Within 48 Hours: No - Physical Exam Constitutional: other (Grand mal seizure occurring during my exam) Eyes: PERRL, anicteric sclera Ears, Nose, Mouth, Throat: moist mucous membranes Cardiovascular: regular rate and rhythym, no murmur, rub, or gallop Respiratory: no respiratory distress Gastrointestinal: normoactive bowel sounds, soft, non-tender abdomen Genitourinary: no bladder fullness Neurologic: other (Grand mall tonic colonic seizure occurred during my examination. He was postictal with an otherwise symmetric [place] logic exam.) ICD10 Worksheet Patient Problems: Problems Problem Status Onset Aggressive behavior Acute Autism spectrum disorder Acute Dehydration Acute
[2017-04-22] MEDS ORDERED: NS 1,000 ML IV ONE (18:28)
--- NOTE | 2017-04-22 18:52 | SOAPPROG ---
SOAP Progress Note Assessment/Plan: 04/22/17 18:20 Psychiatry consult follow-up: 31yo with autism spectrum d/o, schizoaffective d/o and anxiety d/o admitted to [facility] in ICU setting b/c on M-1, had been behaviorally agitated/aggressive and sexually inappropriate, off Clozapine since inpatient psych at [facility] after 10yr on this medication, then decompensating behaviorally, additionally with poor po intake resulting in medical admit earlier this month for rhabdo/dehydration. Returned home only briefly before returned to ED 04/17. Had received high doses of BZD and psychotropics in ED for management. Admitted to ICU on M-. No evidence for NMS, or BZD w/d, continues minimally/not eating/drinking and receiving IVF, restarted on Clozapine 12.5mg 04/20, increased to 25mg 04/21, and had seizure this am with no known seizure hx. Unclear if related. On interview 04/20, patient did express desire to resume Clozapine, and outpatient psychiatrist reported patient seemed more stable on this med, but per RN last pm and night before, patient was reluctant to take it, although eventually did. Aunt Rubina had reported that patient had been occasionally inconsistently med compliant with Clozapine a few months ago, and began complaining more of side effects, prompting medication "wash out" plan while at [facility] earlier this month. Given reports of being inconsistently agreeable to and compliant with taking Clozapine, which will make compliance with weekly labs (as per protocol) also potentially problematic, and due to seizure this AM, which may or may not be related, although is associated with Clozapine and typically dose-related, will modify psychiatric recommendations as below: -d/c clozapine 25mg hs -start olanzapine 2.5mg hs. may cause carbohydrate cravings as side effect, which in this case may be beneficial to stimulate po intake in this patient -low dose antipsychotics b/c pt genetically more sensitive to effects of D2 blocking antipsychotics (also SSRI's and opiates) -cont with prn Ativan -M-1 . d/w attending Dr. Apple. no indication presently to reinstate an M-1, medically likely not with capacity to leave AMA Objective: Vital Signs Temp Pulse Resp BP Pulse Ox 36.6 C 63 18 80/46 L 97 04/22/17 18:00 04/22/17 18:00 04/22/17 18:00 04/22/17 18:00 04/22/17 18:00 Laboratory Results 04/22/17 17:50 04/21/17 04/22/17 04/23/17 05:59 05:59 05:59 Intake Total 3521 4847 50 Output Total 100 Balance 3421 4847 50 - Pending Discharge Pending Discharge Within 24 Hours: No Pending Discharge Within 48 Hours: No ICD10 Worksheet Patient Problems: Problems Problem Status Onset Aggressive behavior Acute Autism spectrum disorder Acute Dehydration Acute
[2017-04-22] MEDS: POTASSIUM Cl (KCl) 10 MEQ in NS 100 ML IV SCH ×2 (21:30→22:31)
[2017-04-22] MEDS: OLANZapine 2.5 MG TAB PO SCH (22:25)
[2017-04-22] MEDS: levETIRAcetam 500 MG in NS 100 ML IV SCH (22:25)
[2017-04-23 05:47] LABS: PLATELET COUNT 172 10^3/uL (150-400)
[2017-04-23] MEDS ORDERED: MAGNESIUM SULF 1 GM/DEXTROSE 100 ML IV ONE (07:25)
[2017-04-23] MEDS ORDERED: MAGNESIUM SULF 1 GM/DEXTROSE 100 ML BAG IV ONE (07:29)
[2017-04-23] MEDS: POTASSIUM Cl (KCl) 100 ML IV SCH ×2 (07:35→08:25)
[2017-04-23] MEDS: POTASSIUM Cl (KCl) 10 MEQ in NS 100 ML IV SCH (07:41)
[2017-04-23] MEDS: D5W 1/2 NS 1,000 ML IV SCH ×3 (08:00→21:20)
[2017-04-23] MEDS: [UNRECOGNIZED DRUG - OTHER] PO SCH (08:24)
[2017-04-23] MEDS: LORazepam 2 MG/ML INJ IVP PRN ×2 (11:58→20:11)
[2017-04-23] MEDS: levETIRAcetam 500 MG in NS 100 ML IV SCH ×2 (12:19→20:07)
[2017-04-23] MEDS: ENOXAPARIN 40 MG/0.4 ML SYR SC SCH (13:09)
--- NOTE | 2017-04-23 17:05 | HOSPPROG ---
Hospitalist Progress Note Assessment/Plan: 31 yo male with acute pychosis; required richelle doses of sedation: Valium 60mg; benadryl 200mg; ketamine 300 mg; zyprexa 40mg IM; Geodon 60mg; Versed 10mg. All given prior to admission in the emergency department, at the time of admission Yesterday the gentleman had a grand mall seizure when started on Keppra and seen by Neurology. CT scan showed a small intercerebral hemorrhage which neurology believes is true. It is unclear if this was a true seizure or not but he has been treating in that fashion. Psychiatry is seeing concurrently. His clozoril been stopped and he started on Zyprexa at a low dose. Currently the patient is mute and takes limited oral intake and at times is sexually aggressive. He is not taking oral fluids or medications thus it is difficult for discharge to Behavioral Medicine at [facility]. The disposition here will be per Psychiatry. Currently the patient is medically cleared for psychiatric care but being held here because of his poor oral intake and cooperation. -acute seizure and currently on Keppra IV as he is not taking p.o. no further seizures have been seen. Note findings of the CT scan -acute psychosis of undetermined etiology. Psychiatry is consulting. -Neuroleptic malignant syndrome: possible but doubt, no fever or rigidity -elecdtroyle disorder -rhabdomyolysis possible 2/2 IM injections and restraints. Improving. This is likely secondary IM injections and not clinically significant. Plan: sedate with clozoril and ativan only; stabilize seizure activity with Keppra and is stable and alert may be transferred to Behavioral Medicine on . discussed with Dr Indu Christopher at [phone] for psychiatry and with Dr. Dav Nunez with Neurology. CT scan was reviewed by myself and with Radiology. Dr. marrero can be reached tomorrow for further consultation as she is operations executive Time: 75 min of critical care time Subjective: Patient sits mute and does not follow commands although he is turning the pages of a magazine is if he is reading it. Objective: Vital Signs Temp Pulse Resp BP Pulse Ox 36.6 C 70 18 83/56 L 100 04/22/17 18:00 04/23/17 05:46 04/23/17 15:01 04/23/17 15:01 12/31/17 15:01 Laboratory Results 04/23/17 05:40 04/23/17 05:40 04/22/17 04/23/17 04/24/17 05:59 05:59 05:59 Intake Total 1797 4558 300 Output Total 300 489 Balance 2947 4258 25 - Time Spent With Patient Time Spent with Patient: greater than 35 minutes Time Spent with Patient: Greater than 35 minutes spent on this patients care, greater than 50% of time spent counseling, educating, and coordinating care regarding the above mentioned plan. - Pending Discharge Pending Discharge Within 24 Hours: No Pending Discharge Within 48 Hours: Yes Pending Discharge Date: 04/25/17 Pending Discharge Time: 11:00 - Physical Exam Constitutional: no apparent distress, appears nourished Eyes: anicteric sclera Ears, Nose, Mouth, Throat: moist mucous membranes, hearing normal Cardiovascular: regular rate and rhythym, no murmur, rub, or gallop Respiratory: no respiratory distress, no rales or rhonchi, clear to auscultation Gastrointestinal: normoactive bowel sounds, soft, non-tender abdomen, no palpable masses Genitourinary: no bladder fullness Skin: warm Psychiatric: depressed, other (Alert but non interactive behavior and not cooperative at times aggressive and sexually aggressive) ICD10 Worksheet Patient Problems: Problems Problem Status Onset Aggressive behavior Acute Autism spectrum disorder Acute Dehydration Acute
--- NOTE | 2017-04-23 17:09 | ASMTCMCOM ---
CM Note CM Note Notes: Acute psychosis had a grand mal sz today, ICH, seen by Psych and Neurology. CM to follow. Date Signed: 04/23/2017 05:09 PM Electronically Signed By:Milagros Nguyen LCSW
[2017-04-23] MEDS: OLANZapine 2.5 MG TAB PO SCH (20:54)
[2017-04-24 05:46] LABS: PLATELET COUNT 168 10^3/uL (150-400)
[2017-04-24] MEDS: D5W 1/2 NS 1,000 ML IV SCH (07:04)
[2017-04-24] MEDS: levETIRAcetam 500 MG in NS 100 ML IV SCH ×2 (09:56→21:50)
[2017-04-24] MEDS: ENOXAPARIN 40 MG/0.4 ML SYR SC SCH (09:56)
--- NOTE | 2017-04-24 10:04 | HOSPPROG ---
Hospitalist Progress Note Assessment/Plan: 31 yo M w autism spectrum disorder as well as schizophrenia here w aggressive behavior, mild rhabdo rhabdo: ck has trended to near normal stop IVF and stop following ck ?seizure: i did not witness but agree that it sounds non epileptic dc large doses of ativan on keppra for now psych: behavioral decompensation in setting of dc of clozaril and possible med non compliance not clear to me why restarting clozaril isnt the plan will d/w psych on zyprexa for now proph: [facility]mwh dispo: inpt Subjective: alert. Objective: Vital Signs Temp Pulse Resp BP Pulse Ox 36.6 C 70 20 92/48 L 100 04/24/17 07:09 04/24/17 07:09 04/24/17 07:09 04/24/17 07:09 04/24/17 07:09 Laboratory Results 04/24/17 05:40 04/24/17 05:40 04/23/17 04/24/17 04/25/17 05:59 05:59 05:59 Intake Total 4558 5447 Output Total 300 1325 625 Balance 4258 4122 -625 - Physical Exam Constitutional: no apparent distress, appears nourished Eyes: PERRL, anicteric sclera Ears, Nose, Mouth, Throat: moist mucous membranes, hearing normal Cardiovascular: regular rate and rhythym, no murmur, rub, or gallop Respiratory: no respiratory distress, no rales or rhonchi Gastrointestinal: normoactive bowel sounds, soft, non-tender abdomen Genitourinary: no bladder fullness, No dumas in urethra Skin: warm, normal color Musculoskeletal: full muscle strength, no muscle tenderness Neurologic: No AAOx3 Psychiatric: not anxious, No interacting appropriately, No not encephalopathic ICD10 Worksheet Patient Problems: Problems Problem Status Onset Aggressive behavior Acute Autism spectrum disorder Acute Dehydration Acute
[2017-04-24] MEDS: [UNRECOGNIZED DRUG - OTHER] PO SCH (12:37)
[2017-04-24] MEDS: POTASSIUM CL 10 MEQ TAB PO ONE ×3 (14:09→14:24)
[2017-04-24] MEDS: LORazepam 2 MG/ML INJ IVP PRN ×2 (14:28→21:44)
[2017-04-24] MEDS ORDERED: POTASSIUM CL 10 MEQ TAB PO ONE (14:30)
[2017-04-24] MEDS: OLANZapine 2.5 MG TAB PO SCH (21:46)
[2017-04-25] MEDS: LORazepam 2 MG/ML INJ IVP PRN ×3 (01:44→23:09)
[2017-04-25] MEDS: levETIRAcetam 500 MG in NS 100 ML IV SCH ×2 (09:15→23:09)
[2017-04-25] MEDS: [UNRECOGNIZED DRUG - OTHER] PO SCH (09:15)
[2017-04-25] MEDS: ENOXAPARIN 40 MG/0.4 ML SYR SC SCH (09:15)
--- NOTE | 2017-04-25 13:23 | HOSPPROG ---
Hospitalist Progress Note Assessment/Plan: 31 yo M w autism spectrum disorder as well as schizophrenia here w aggressive behavior, mild rhabdo rhabdo: ck has trended to near normal stop IVF and stop following ck ?seizure: i did not witness but agree that it sounds non epileptic dc large doses of ativan on keppra for now psych: behavioral decompensation in setting of dc of clozaril and possible med non compliance not clear to me why restarting clozaril isnt the plan d/w psych MD on zyprexa for now needs inpatient psychiatric care proph: [facility] dispo: inpt Subjective: case d/w dr ferguson. still thinks I am his father, trying to hug me Objective: Vital Signs Temp Pulse Resp BP Pulse Ox 36.9 C 58 L 13 106/48 L 98 04/24/17 19:09 04/24/17 19:09 04/24/17 19:09 04/24/17 19:09 04/24/17 19:09 Laboratory Results 04/24/17 05:40 04/24/17 18:10 04/24/17 04/25/17 04/26/17 05:59 05:59 05:59 Intake Total 5447 2694 Output Total 1325 2570 Balance 4122 124 - Physical Exam Constitutional: no apparent distress, appears nourished, other (disheveled) Eyes: PERRL, anicteric sclera Ears, Nose, Mouth, Throat: moist mucous membranes, hearing normal Cardiovascular: regular rate and rhythym, no murmur, rub, or gallop Respiratory: no respiratory distress, no rales or rhonchi Gastrointestinal: normoactive bowel sounds, soft, non-tender abdomen Genitourinary: no bladder fullness, No dumas in urethra Skin: warm, normal color Musculoskeletal: full muscle strength Neurologic: AAOx3 ICD10 Worksheet Patient Problems: Problems Problem Status Onset Aggressive behavior Acute Autism spectrum disorder Acute Dehydration Acute
--- NOTE | 2017-04-25 18:17 | ASMTCMCOM ---
CM Note CM Note Notes: Patient has been refusing to take his meds, at times not hydrating enough and is hypersexual. Met with his aunt, Rubnia- his guardian, who had taken on the responsibility of his care after her brother in 2015. His mother earlier. Patient was with his father for a day before someone came to the home. She reports that patient had not been dx w/autism until 2007. Rubina brought patient to [place] where she got him on emergency disability-Medicare and enrolled him in the [place] [facility] and [employer] for People with [employer]abilities. He has a psychiatrist, Dr Fong at [facility]. She reports that when patient was younger, he met a man on-line and went to live with him in [place] for 3mos. , which might explain some of his sexual out bursts. She reports that he was on 700mg of Clozaril when he was in [place]. She acted as a Host Home provider for [place] in order for patient to stay with her. He started to refuse his medications in and started acting out sexually. Aunt brought him to [facility] ER, he was admitted and here 08-31 and sent to [facility] in [place]. They wanted to take him off all his meds and watch to see if he was more psych or autistic and ther until when he was sent to the [facility] due to dehydration and Rhabdo. [facility] did not want to readmit him on his discharge so aunt took him home with her. Patient continued acting out at home and aunt's didn't want to care for him any more, so she brought him back to [facility]. Talked w/[facility] provider and she said that patient will need to be taking his meds, hydrating and appropriate for a Host Home before she could take him back. They can't administer PRN meds they will need to be scheduled. [facility] spoke with an test engine evaluator from [facility] who evaluated patient 04/24/17 and they could not find an in-pt setting that would admit a patient with his needs. Hospitalist to involve [facility] psychiatrist. Date Signed: 04/25/2017 06:17 PM Electronically Signed By:Milagros Nguyen LCSW
[2017-04-25] MEDS: OLANZapine 2.5 MG TAB PO SCH (21:11)
[2017-04-26] MEDS ORDERED: OLANZapine 10 MG/2 ML VIAL IM PRN ×2 (00:38→17:39)
[2017-04-26] MEDS ORDERED: LORazepam 2 MG/ML INJ IVP ONE (00:38)
[2017-04-26] MEDS: LORazepam 2 MG/ML INJ IVP PRN (08:44)
[2017-04-26] MEDS: levETIRAcetam 500 MG in NS 100 ML IV SCH (08:45)
[2017-04-26] MEDS: ENOXAPARIN 40 MG/0.4 ML SYR SC SCH (08:52)
[2017-04-26] MEDS: [UNRECOGNIZED DRUG - OTHER] PO SCH (11:19)
[2017-04-26] MEDS ORDERED: OLANZapine 2.5 MG TAB PO SCH (16:16)
[2017-04-26] MEDS ORDERED: OLANZapine 2.5 MG TAB PO ONE ×2 (16:45→21:00)
[2017-04-26] MEDS ORDERED: levETIRAcetam 500 MG TAB PO ONE (16:45)
[2017-04-26] MEDS: OLANZapine DISINTEGR 5 MG TAB PO SCH ×2 (17:25→20:49)
--- NOTE | 2017-04-26 19:40 | HOSPPROG ---
Hospitalist Progress Note Assessment/Plan: 31 yo M w autism spectrum disorder as well as schizophrenia here w aggressive behavior, mild rhabdo rhabdo: resolved ?seizure: query if resuming clozaril lowered his seizure threshold. no recurrent seizures, cont keppra psych: behavioral decompensation in setting of dc of clozaril and possible med non compliance d/w Dr. Christopher, psych MD deferring clozaril due to concern for this lowering his seizure threshold, though he was stable on this for years cont zyprexa for now awaiting placement for inpatient psychiatric care proph: [facility] dispo: inpt, medically cleared for transfer to psych, awaiting placement Subjective: Pt ambulating in room. Having a good day. No complaints. Objective: Vital Signs Temp Pulse Resp BP Pulse Ox 36.4 C 68 16 103/58 L 96 04/26/17 14:12 04/26/17 14:12 04/26/17 14:12 04/26/17 14:12 04/26/17 14:12 Laboratory Results 04/24/17 05:40 04/26/17 13:30 04/25/17 04/26/17 04/27/17 05:59 05:59 05:59 Intake Total 2694 300 300 Output Total 2570 Balance 124 300 300 - Physical Exam Constitutional: unkempt Respiratory: no respiratory distress Musculoskeletal: full muscle strength Psychiatric: poor insight, poor judgement ICD10 Worksheet Patient Problems: Problems Problem Status Onset Aggressive behavior Acute Autism spectrum disorder Acute Dehydration Acute
[2017-04-26] MEDS ORDERED: levETIRAcetam 500 MG TAB PO SCH (21:00)
[2017-04-26] MEDS ORDERED: diphenhydrAMINE 25 MG CAP PO PRN (21:47)
--- NOTE | 2017-04-26 23:05 | SOAPPROG ---
SOAP Progress Note Assessment/Plan: 04/26/17 17:56 PSYCHIATRY consult follow-up: Requested additional mental health support from Martha Reynaga, who interviewed this patient at length today, to assist with recommendations for managing this patient and coordinating treatment while in ICU. I also interviewed patient this afternoon again, talked with staff and reviewed progress/events over the last several days. On interview, pt was oriented to hospital, Mar 2017. Not sure why in hospital , then mumbled, "because I love you?" Pt was provided with orientation, but continued with some perseveration on 2016 and brief illogical responses, which were unintelligible at times due to mumbling, then would state "nevermind" when asked for clarification. Interjected randomly, "I like pizza". Apparently earlier had been asked by staff for food preferences. MSE: Sitting in chair, sitter present, meal on table and pt seemed unsure about eating. Disheveled and unshowered. Psychomotor activity nml, altho with odd behavior including standing up after interview, then got down and kneeled on floor and stood back up and said flatly, "I just fell". Fair eye contact, speech with delayed responses at times and variably intelligible, ranging from appropriate brief responses, to sometimes mumbling a response or responding with a few rapid words that were difficult to comprehend. Mood "fine", affect restricted/guarded and even apprehensive at times. Denied SI or thoughts to harm others. Denied AH/VH. Did not clearly appear responding to internal stimuli , but did seem somewhat internally preoccupied. Thoughts did seem disorganized, perseverative, and illogical at times, as were his behaviors around food and medication intake. Had requested fish and healthy vegetables, and after meal provided, only took a couple of bites, and seemed to be unsure about eating. I/ J both impaired. Cognition not formally assessed. Affect became very anxious when he overheard RN talking about an option of pt returning to ER, stating "no violence...no guns". Of note, pt was in restraints in ED after arrival, and received a lot of IM meds, and appeared to have some traumatic recollections based on his affect and limited verbal responses. In discussion [place] [facility] [place] and review of notes, pt seems to occasionally have logical conversations around certain topics of interest, but has also asked questions about heaven and what happens after . This pm told RN he was worried about going to [facility], and yelled about wanting to return to [place] but eventually went to sleep. (Of note, he lost his father unexpectedly one year ago and was moved from [place] to [place] after having lived with parents throughout his live, and mother 3yr earlier). He apparently also has referred to one MD as his father over weekend. He required redirection when attempting to jump and hug male staff/sitter this pm, and has periodically been sexually inappropriate toward staff. Notably, pt is reported to have taken Zyprexa 2.5mg pt qhs for past 2-3 nights. But had been continued on IV prn Ativan (using 2-3mg/day recently) and IV Keppra. NEEDS to be on PO MEDS for inpt psych unit. Changed to po this afternoon. After interview, around 1630 this pm, pt initially agreed to po meds, then refused early offer of zyprexa 2.5mg po this afternoon, took pill and tossed in air, then took with mashed potatoes but twice swallowed potatoes and twice spit out medication. Attempted offer of meds again, but with zyprexa zydis 5mg which pt took, then took po keppra dose offered early to ensure no difficulty with taking po meds while primary team and mental health present. Spoke with RN later on nights, who stated pt took his zyprexa 5mg at hs orally. This in addition to 5mg dose around 5pm for total 10mg. RN did state pt was pacing and restless in room, often up/down but overall redirectable. Benadryl 25mg ordered as prn for possible akathisia, and insomnia, but after pt had outburst of yelling about wanting to return to [facility], he eventually laid down to sleep. No prns required. DX: Autism spectrum d/o Schizoaffective d/o, acute exac Unspecified anxiety d/o, r/o PTSD s/p Seizure 04/22. REC: -Continue Ativan 0.5-1mg q4hr prn agitation. None today. Had been receiving 2- 3mg/day recently. Has hx of anxiety d/o. -Clinically, seems to need incr dose of neuroleptic for his apparent thought disorder, and has hx of Schizoaffective d/o. Will incr Zyprexa 2.5mg qhs to 5mg qhs and change to zydis formulation, started tonight (altho received total 10mg today). Zydis oral dissolving formulation for improved compliance. Also may help with his appetite since may cause incr carbohydrate cravings, and pt has had recent poor po intake (reports poor appetite, but seems disorganized and not sure about eating). Has been eating a little more consistently recently. -Has Zyprexa 2.5-5mg IM x 1 avail, but will d/c this since has already received total 10mg Zyprexa zydis today (took early offer of 5mg this evening and hs dose was still scheduled). Is very sensitive to D-2 blocking antipsychotics and therefore their side-effects based on his genetic testing results as per information provided by aunt Rubina (also genetically sensitive to SSRIs and opiates). -Added Benadryl 25mg po qhs prn tonight for sleep/EPS/akathisia. Hasn't taken. -Not restarting Clozapine b/c inconsistently med compliant (and clozapine will require consistent compliance including with weekly blood draws), and also b/c recent seizure (clozapine can incr risk). -Keppra IV changed to 500mg po bid. No reported seizures since witnessed on . Neuro consulted. No clear etiology. Had just restarted Clozapine and took 25mg hs the night before. Also had been on BZDs but no evid of w/d from bzds prior to sz. Small hemorrhagic focus noted on head CT. Pt was reportedly occasionally head-banging when distressed. Aunt reported pt w/hx of 2 concussions when young. Neuro has already consulted. -Presently medically clear per hospitalist service. Was accepted for inpt psych earlier in week but not transferred b/c was still on IV meds, but also due to pt acuity and staffing issues on 3[facility] inpt psychiatric unit as pt will require 1: 1 initially. Now on PO meds, will monitor for at least occasionally compliance. -Hx of poor po intake and a few weeks ago required medical admit for dehydr/ rhabdo. Has been on IVF and with poor po intake since at [facility] but improving. Monitor I/O for food/fluids after IVF discontinued. -Meeting was held yesterday with outpatient [facility] service providers regarding treatment planning for this pt, and a phone meeting is scheduled for tomorrow 04/27 at noon to assist with management and dispo. Mental health partners will work with [facility] on placement since most recent information as of late pm today is that pt was not felt to be appropriate for 3[facility] inpatient psych unit. -Would strongly recommend to NOT transfer/discharge pt to ER from ICU if not immediately able to go to inpt psych. Due to his autism spectrum d/o and psychosis, also his traumatic recent experience in the ER, with heavy IM meds and restraints, anticipate this could create significant distress, regression and decompensation, putting him again at risk of repeating entire scenario and ultimately ending back up in ICU setting. -Pt not on an M-1 hold, but is not felt to have capacity to leave AMA. He denied plan/intent to harm self or others. Behaviors still have been inappropriate, disinhibited and impulsive at times, and he is still not consistently logical or organized with his thought processes. If medically does not need ICU, could consider transfer to medical floor bed with a sitter until discharged to inpatient psych. Objective: Vital Signs Temp Pulse Resp BP Pulse Ox 36.9 C 74 18 92/58 L 94 04/26/17 19:52 04/26/17 19:52 04/26/17 19:52 04/26/17 19:52 04/26/17 19:52 Laboratory Results 04/24/17 05:40 04/26/17 13:30 04/25/17 04/26/17 04/27/17 05:59 05:59 05:59 Intake Total 2694 300 300 Output Total 2570 Balance 124 300 300 - Time Spent With Patient Time Spent With Patient: 45min - Pending Discharge Pending Discharge Within 24 Hours: No Pending Discharge Within 48 Hours: No ICD10 Worksheet Patient Problems: Problems Problem Status Onset Aggressive behavior Acute Autism spectrum disorder Acute Dehydration Acute
[2017-04-27] MEDS: levETIRAcetam 500 MG TAB PO SCH ×3 (08:49→10:18)
[2017-04-27] MEDS: [UNRECOGNIZED DRUG - OTHER] PO SCH (08:57)
[2017-04-27] MEDS: ENOXAPARIN 40 MG/0.4 ML SYR SC SCH (08:57)
--- NOTE | 2017-04-27 11:36 | HOSPPROG ---
Hospitalist Progress Note Assessment/Plan: 31 yo M w autism spectrum disorder as well as schizophrenia here w aggressive behavior, mild rhabdo rhabdo: resolved ?seizure: query if resuming clozaril lowered his seizure threshold. no recurrent seizures. Discussed with neurology, who advised ok to d/c keppra, which is preferred by psychiatry due to concern for worsening his psychiatric illness. In addition, he was noted to have more seizure type activity today, but was able to stop when asked by his RN. ?pseudoseizures observe off keppra psych: behavioral decompensation in setting of dc of clozaril and possible med non compliance d/w Dr. Christopher, psych MD haylie kim discussed with aunt, Rubina, who requests further w/u for medical issues - will check BURAK, RPR, and MRI w/ and w/out contrast to r/o infectious etiologies awaiting placement for inpatient psychiatric care proph: [facility] dispo: inpt, medically cleared for transfer to psych, awaiting placement Subjective: Pt withdrawn. Not interacting much, but answers basic questions. Objective: Vital Signs Temp Pulse Resp BP Pulse Ox 36.7 C 74 12 94/47 L 95 04/27/17 08:00 04/27/17 08:00 04/27/17 08:00 04/27/17 08:00 04/27/17 08:00 Laboratory Results 04/24/17 05:40 04/26/17 13:30 04/26/17 04/27/17 04/28/17 05:59 05:59 05:59 Intake Total 300 450 Balance 300 450 - Physical Exam Constitutional: no apparent distress Psychiatric: agitated ICD10 Worksheet Patient Problems: Problems Problem Status Onset Aggressive behavior Acute Autism spectrum disorder Acute Dehydration Acute
[2017-04-27] MEDS ORDERED: OLANZapine 2.5 MG TAB PO ONE (13:32)
[2017-04-27] MEDS ORDERED: LORazepam 2 MG/ML INJ IVP ONE ×2 (13:32→17:00)
[2017-04-27] MEDS: LORazepam 0.5 MG TAB PO PRN ×2 (14:20→20:52)
--- NOTE | 2017-04-27 15:31 | ASMTCMCOM ---
JOSEPH Note JOSEPH Note Notes: Libertad Coronado from [facility] program called requesting appropriate hospital personnel participate in a phone conference regarding patient and his medical and residential needs. Phone conference was at 12:00 noon today, 04-27-17. In attendance from the hospital was Skylar, patient's nurse, Selin, soils engineer, Rosario, Nurse Director [facility] for [facility], Martha Reynaga, Behavioral Health RN nissan sales consultant, myself, Rowena, JOSEPH, PRINT PROJECT MANAGER and patient's Aunt Rubina/guardian. Also in attendance was Libertad from [facility] and a test case developer for [facility]. Skylar answered questions re: patient's current medical condition and the medications he is currently taking. Patient has been placed on sublinguil Zyprexa for ease in taking medication. (patient has been refusing to take his medication) Libertad states they are interviewing 2 host homes and also need time to get the host home ready for special circumstances with this patient.The d/c plan currently is patient will go to for medication evaluation and stabilization. Patient is scheduled to be d/c'ed in the morning 04-28-17 at 10:30 AM. Selin, nursing education specialist informed [facility] that patient may need to be moved back to the ED if our ICU needs the beds for trauma patients. Patient will then d/c from to a host home that [facility] has arranged. Rowena clarified with [facility] when they think the placement is going to be available and Libertad states the goal is to have the host home ready at the first of next week. Libertad Coronado phone number is [phone] and her email address is: [email or web address]. Patient's Aunt Rubina is in agreement with the d/c plan and understands our situation with a need for beds in the ICU. Spoke with Behavioral Health Unit to give them the information and confirm all steps in the plan. Cecy was given Libertad's contact information. Martha Reynaga will meet with the patient to inform him of the plan and answer his questions. Spoke with Dr. Leos to inform her of the plan and let her know she will either d/c patient to ED in the event we need the bed or will d/c patient in the morning before 10:30 so we can set up transport to 3N for the 10:30 AM transport time. If patient is d/c'ed to the ED, ED overhead door technician will need to set up transport for patient to 3N in the morning. CM will follow. Date Signed: 04/27/2017 03:31 PM Electronically Signed By:Rowena Elias LCSW
[2017-04-27] MEDS ORDERED: GADOBUTROL 10 ML VIAL IVP ONE (17:13)
[2017-04-27 19:04] VITALS: BP 103/60; PULSE 79; RESP 16; TEMP 97.7; O2SAT 96
[2017-04-27] MEDS: OLANZapine DISINTEGR 5 MG TAB PO SCH (20:51)
[2017-04-27] MEDS ORDERED: OLANZapine 2.5 MG TAB PO SCH (21:00)
[2017-04-28] MEDS: ENOXAPARIN 40 MG/0.4 ML SYR SC SCH (07:43)
[2017-04-28] MEDS: [UNRECOGNIZED DRUG - OTHER] PO SCH (07:43)
[2017-04-28] MEDS: LORazepam 0.5 MG TAB PO PRN (08:43)
[2017-04-28] MEDS ORDERED: OLANZapine DISINTEGR 5 MG TAB PO ONE (08:45)
--- NOTE | 2017-04-28 09:38 | PDIAF ---
- Diagnosis Diagnosis: psychosis Code Status: Full Code - Medication Management Discharge Medications: Medications to Continue on Transfer Iron/FA/Dha/Epa/Fad/Nadh/Mv47 [Enlyte Softgel] 1 each PO DAILY 04/20/17 [Last Taken 04/19/17] Acetaminophen [Tylenol 325mg (*)] 650 mg PO Q4HRS PRN tab 04/28/17 [Last Taken Unknown] LORazepam [Ativan (*)] 0.5 - 1 mg PO Q4HRS PRN tab 04/28/17 [Last Taken Unknown ] OLANZapine DISINTEGR [ZyPREXA ZYDIS (*)] 5 mg PO HS tab 04/28/17 [Last Taken Unknown] diphenhydrAMINE [Benadryl 25 MG (*)] 25 mg PO HS PRN cap 04/28/17 [Last Taken Unknown] Discharge Medications: Refer to the Discharge Home Medication list for PRN reason. - Orders Services needed: Registered Nurse, Master Director Of Search Engine Marketing Diet Recommendation: no restrictions on diet - Follow Up Care Current Providers and Referrals: Real Yousif DO [Medical Doctor] - As per Instructions Priyanka Arthur MD [Medical Doctor] - As per Instructions Zeeshan Melendez MD [Medical Doctor] - As per Instructions
--- NOTE | 2017-04-28 10:23 | NEUROPROG ---
Assessment: Pt had brain MRI which was normal yesterday. He continues to have spells of closing his eyes and acting bizzarely that appear to be pseudoseizures not epileptic seizures. I observed a spell when I was in his room where he would lay on his back and intermittently hold up his hands or legs for a minute or so then rest them on the bed. I feel his psychiatric diagnosis is likely correct and that maximal mental health care is the correct treatment strategy at this time. No further neurologic w/u needed. I think Keppra can be stopped as I feel epileptic seizures are unlikely and Keppra can worsen psychiatric disease. If his psychiatrist is concerned his events may be epileptic then they could consider a trial of gabapentin 300 mg TID. If there remains continued concern about epileptic seizures pt would need to be transferred to a facility with inpatient EEG monitoring to definetively classify his spells. I told his nurse to call me if his aunt would like to speak with me. 35 min spent discussing case with Dr. Leos, his nurse, and evaluating the patient. Neurology will sign off. Objective: Vital Signs Temp Pulse Resp BP Pulse Ox 36.5 C 79 16 103/60 96 04/27/17 19:02 04/27/17 19:02 04/27/17 19:02 04/27/17 19:02 04/27/17 19:02 Laboratory Results 04/24/17 05:40 04/26/17 13:30 04/27/17 04/28/17 04/29/17 05:59 05:59 05:59 Intake Total 450 250 Balance 450 250 Allergies/Adverse Reactions: buspirone [From BuSpar] Allergy (Verified 03/30/17 12:34) Anxiety citalopram [From Celexa] Allergy (Verified 03/30/17 12:34) MANIC lorazepam [From Ativan] Allergy (Verified 03/30/17 12:34) SEDATION/ISOLATION/"ACTING OUT" paroxetine [From Paxil] Allergy (Verified 03/30/17 12:34) Anxiety ziprasidone [From Geodon] Allergy (Verified 03/30/17 12:34) Other-Enter Comments
--- NOTE | 2017-04-28 20:55 | GDS ---
[f rep st] DISCHARGE SUMMARY CONSULTANTS: 1. Indu Christopher M.D., Psychiatry. 2. Dav Nunez M.D., Neurology. HISTORY OF DETAILS: Please see the history and physical dated April 20, 2018. In brief, the luba ent is a 31-year-old male with a history of an autism-spectrum disorder, schizoaffective disorder wit h depression and anxiety, who presented to the emergency department with acute agitation, aggressive behavior and acute psychosis along with hypernatremia and mild rhabdomyolysis. He was ultimately adm itted to the intensive care unit on an M1 hold. HOSPITAL COURSE: The patient was admitted to the ICU on an M1 hold. Psychiatric consultation was obt ained given his acute psychosis and agitation. He had previously been managed on clozapine 400 mg da adeola but apparently had been off this since an inpatient psychiatric stay in [facility] on where he was reportedly admitted for medication "washout." Prior to that, he had been on cloza pine for 10 years. He was then discharged from the inpatient psych unit to [facility] due to volume deple tion and rhabdomyolysis in the setting of poor oral intake. He then returned home to live with his a unt on April 14. At this point, he was off all of his medications. He began to have inappropriate hypersexual and aggressive behaviors and was admitted for ongoing aron gement. Since presenting to the [facility] Emergency Department, the patient received Zyprexa, Geodon, Valium, ketamine, Benadryl, and Versed. After a psychiatric consultation was obtain ed, he was restarted on clozapine. The following day he had seizure type activity. A CT scan of his brain was performed which showed an equivocal tiny right occipital parenchymal hemorrhage. Neurolog y consult was obtained. The patient was started on Keppra. However, after further consultation with Neurology and Psychiatry, it was decided to stop his Keppra as Keppra could worsen psychiatric illne ss and it seems unlikely that he has a primary epileptic seizure disorder. There was come concern that the resumption of Clozaril may have lowered his seizure threshold and so he was treated with Zyprexa instead of Clozaril. During his hospitalization, he went on to have some intermittent shaking or seizure-type activity, th ough was able to stop these behaviors with direction by his RN. I query if he actually has pseudosei zures. He did undergo a brain MRI which was normal. In addition, he had a negative RPR. Ultimately the patient was transferred to [address] [place] [address] Inpatient Behavioral Health Unit while they continu ed to look for longer-term placement for psychiatric stabilization. DISPOSITION: The patient was discharged to the [facility] in stable condition. DISCHARGE MEDICATIONS: Please see [facility] for completed outpatient medication list. New medication s on discharge include Zyprexa 5 mg p.o. at bedtime, lorazepam 0.5-1 mg p.o. q.4 hours p.r.n., Benadr yl 25 mg p.o. at bedtime p.r.n., and Tylenol 650 mg p.o. q.4 hours p.r.n. FOLLOWUP: 1. Dr. Zeeshan Melendez. 2. Priyanka Arthur M.D. 3. Real Yousif DO. /[id number]/MODL
== END 2017-04-28 10:30 | DRG 885 ==
LOC: EDUNIT# → EEVIPCON 04-20 07:38 → F2N 04-20 08:23 → OBSVTOIN 04-20 11:28 → UNDODISIN 04-22 12:45
PROVIDERS: ADMIT Family Medicine; ATTEND Family Medicine
DX: F23 Brief psychotic disorder (principal); F25.1 Schizoaffective disorder, depressive type; F84.0 Autistic disorder; R56.9 Unspecified convulsions; E87.0 Hyperosmolality and hypernatremia; M62.82 Rhabdomyolysis; F41.9 Anxiety disorder, unspecified; R45.1 Restlessness and agitation
CPT/HCPCS: 96374; A9585; G0480; J1200; J1650; J1953; J2060; J3475; J3486

== ENCOUNTER 2017-04-28 11:00 | Inpatient (IN) | payer OTHER, MEDICAID ==
[2017-04-28] MEDS ORDERED: ACETAMINOPHEN 325 MG TAB PO PRN (11:29)
[2017-04-28] MEDS ORDERED: MAG HYDROX/AL HYDROX/SIMETH 30 ML UDCUP PO PRN (11:29)
[2017-04-28] MEDS ORDERED: MAGNESIUM HYDROXIDE 30 ML UDCUP PO PRN (11:29)
[2017-04-28] MEDS ORDERED: NICOTINE POLACRILEX 2 MG GUM B PRN (11:29)
[2017-04-28] MEDS ORDERED: LORazepam 2 MG/ML INJ IM PRN (11:33)
[2017-04-28] MEDS ORDERED: OLANZapine 10 MG/2 ML VIAL IM PRN (11:33)
[2017-04-28] MEDS: LORazepam 1 MG TAB PO PRN ×3 (13:02→23:47)
[2017-04-28] MEDS: OLANZapine DISINTEGR 5 MG TAB PO PRN ×2 (13:03→23:48)
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
[2017-04-28] MEDS: OLANZapine DISINTEGR 5 MG TAB PO SCH (20:27)
[2017-04-28] MEDS ORDERED: DIVALPROEX NA 500 MG TAB PO SCH (21:00)
[2017-04-29] MEDS ORDERED: LORazepam 2 MG/ML INJ IM PRN ×2 (02:00→12:57)
[2017-04-29] MEDS ORDERED: LORazepam 1 MG TAB PO PRN (02:00)
[2017-04-29] MEDS: diphenhydrAMINE 50 MG CAP PO PRN ×2 (02:56→11:03)
[2017-04-29] MEDS: OLANZapine DISINTEGR 5 MG TAB PO SCH (11:03)
[2017-04-29] MEDS: FERRO-SEQUELS 65 MG TAB.ER PO SCH (11:03)
[2017-04-29] MEDS: LORazepam 1 MG TAB PO PRN ×2 (11:03→16:26)
[2017-04-29] MEDS ORDERED: OLANZapine DISINTEGR 5 MG TAB PO PRN (12:32)
[2017-04-29] MEDS ORDERED: HALOPERIDOL 5 MG TAB PO SCH (12:45)
[2017-04-29] MEDS: HALOPERIDOL 5 MG TAB PO SCH ×2 (12:57→21:36)
[2017-04-29] MEDS ORDERED: HALOPERIDOL LACT 5 MG/ML INJ IM PRN (12:57)
[2017-04-29] MEDS: DIVALPROEX ER 500 MG TAB PO SCH (12:57)
--- NOTE | 2017-04-29 14:19 | SOAPPROG ---
SOAP Progress Note Assessment/Plan: Assessment: 31 yo with complicated hx. Records indicate he has been dx with multiple conditions, including Bipolar, Schizophrenia, Schizoaffective, IDD, PDD, ASD. He attended a special needs HS in [place] according to Dr. Wu's initial psych assessment. 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 When his POC both last year, [facility] [place]. During that time, he was receiving services through [facility] and being treated by Zeeshan Melendez. Records indicate it was Dr. Melendez who started patient on Clozaril with max dose being 400mg. Information provided by [facility] indicate while he lived in [place], patient was tried on many different meds including Risperdal, Geodon, Abilify, Zyprexa, Hyannis and Depakote. When this MD spoke to [facility] on phone on 04/29/17, Rubina did not mention any prior h/o NMS, EPS or dystonia while taking neuroleptics. [facility] did say that patient was noncompliant with Clozaril while living in [place]. He became hypersexual, aggressive and difficult to manage while living with [facility]. She took him to ED and he was admitted to [facility] in 04/09. While there, patient was dehydrated and had AMILCAR as well as s/s of rhabdomyolysis. He was taken off Clozaril at the time and sent home. [facility] brought patient back to [facility] ED due to out of control bxs, hypersexuality. Patient was off psych meds completely for a couple weeks at this time. He had elevated CK and slightly elevated Na. Since then, patient was admitted to and restarted on psych meds including Zyprexa and Depakote for mood stability. Plan: 04/29/17 14:11 1. Spoke at length with [facility], Rubina, by phone. She is convinced patient had toxoplasmosis as a child b/c he "lived with a lot of cats." tried to assure [facility] that patient is currently asymptomatic for toxo infxn. He is afebrile and has no lymphadenopathy, malaise. In addition, MRI and CT were both negative for any features consistent with FOLDER INSPECTOR toxo infxn. tried to explain to [facility] that a significant portion of adults are seropositive for toxoplasmosis and that testing for it would not indicate any type of FOLDER INSPECTOR involvement that could be relevant to his current psych presentation. In addition, explained that MRI is the gold standard for diagnosing long-term FOLDER INSPECTOR effects. She said, "well I read a bunch of stuff on the [facility] website and I'm worried." MD's efforts to reassure [facility] were not successful. 2. Start Emeds for Day #2. Haldol 5mg IM BID and Ativan 1mg IM QID if patient refuses PO. 3. Will change to Depakote ER 1500mg daily and plan to increase rapidly to most effective dose. 4. D/C Zyprexa and start Haldol 5mg BID for aggression and mood stability. 5. MD reviewed labs and CK has been trending down significantly since admission to [facility]. His CK on 04/21 was 566 and on 04/23 it was 177. This drop occurred rapidly after administration of IVF. Further indication that the cause of the rhabdo was dehydration rather than NMS. Patient's Na was also 145 on and 140 on 04/23, though it adiel back to 145 on 04/24/17. His most recent BUN/ CR on 04/24/17 was only sightly below normal (6/0.6). In addition his protein and albumin were both low indicating lack of adequate PO intake most likely over several weeks or longer. RN tried to draw blood for lab draw this AM, but patient's veins were collapsed d/t hypovolemia. Based on his recent labs and lack of any s/s of rhabdo or hypernatremia, MD believes patient is at low risk currently and will postpone labs until patient is more adequately hydrated. Will continue to push fluids. This AM patient did drink water and milk. If his PO intake drops off, may consider sending him to ED for IVF and draw labs at that time. 6. Patient has conjunctivitis in right eye. Will order Gentamicin drops. 7. reviewed neurology note from 2N admission. Neurologist noted that patient had erratic movements not consistent with epileptiform activity. He would alternately raise and lower UE and LE while lying down. Neurologist did not believe patient was having seizures. Given his conclusions, this MD sees no contraindication to re-starting Clozaril. However, after reading Dr. Wu's initial psych assessment, this MD questions whether or not Clozaril is necessary or even sufficiently effective to warrant it's use. According to information obtained by Dr. Christopher, patient was on Clozaril briefly in [place] in 2007, and then again in 2017. According to [facility], he was not compliant on meds. However, AOC reports patient was more functional in [place] and did not have as many issues with hypersexual behavior and frequent masturbating and inappropriate behaviors. Whether this is d/t meds or circumstances or progression of illness is unclear. AOC did say that "none of those meds" meaning the atypical antipsychotics (Risperdal, Zyprexa, Geodon, Abilify and Consta) were "very helpful." It's unclear how the AOC knows this information, since she admits she "doesn't really know" the details of his psych hx when he was living with POC. Without more accurate information, I would not presume that no other neuroleptics were tolerable and effective. It's also unclear whether or not mood stabilizers like lithium and Depakote could be more effective than antipsychotic meds for patient now. Hyannis and Depakote tend to be more effective mood stabilizers for adults than antipsychotics. Patient may respond differently to meds at 31 than he did as teenager. 8. AOC said she was trying to contact other relatives and gather more information about patient's medical and psych hx. MD encouraged her to write down a chronology of patient's hx as best she can to help inform his current psych treatment and ongoing care in future. She agreed. 9. MD and treatment team, RN, CM, therapist, spoke with Cecy, the community dietitian, this AM and reviewed med changes, emergency meds as well as the behavior support plan for patient. There is a comprehensive behavior plan to address patient's inappropriate behaviors that has been provided to all staff, including patient's 1:1. Subjective: Met with patient, reviewed chart and d/w staff. Please see Plan section for detailed description of conversations with AOC, staff and patient, as well as recommendations. Patient has been in his room all morning. His behavior is much more appropriate this AM. He has not been taking his clothes off or masturbating. He has followed directions from staff with repeated prompting. He took all PO meds this AM with encouragement. When MD spoke to him, he asked to "be discharged." He was calm, cooperative, restless and pacing. He denied any SI /HI. Objective: Vital Signs Temp Pulse Resp BP Pulse Ox 36.4 C 66 16 104/63 99 04/28/17 12:54 04/29/17 06:00 04/29/17 06:00 04/29/17 06:00 04/29/17 06:00 04/28/17 04/29/17 04/30/17 05:59 05:59 05:59 Intake Total 1939 Balance 1939 MSE: Affect: Flat Mood: "OK" TP: Disorganized TC: No SI/HI, still talks about sex a lot Insight/Judgment: Impaired - Time Spent With Patient Time Spent With Patient: 35 - Pending Discharge Pending Discharge Within 24 Hours: No Pending Discharge Within 48 Hours: No ICD10 Worksheet Patient Problems: Problems Problem Status Onset Intellectual disability Acute Schizoaffective disorder, bipolar type Acute Aggressive behavior Acute Autism spectrum disorder Acute Dehydration Acute
[2017-04-29] MEDS: LORazepam 1 MG TAB PO SCH ×2 (15:16→21:36)
[2017-04-29] MEDS: GENTAMICIN 0.3% OPHT DROPS 5ML RTEYE SCH ×3 (16:25→21:39)
[2017-04-29] MEDS: diphenhydrAMINE 50 MG CAP PO SCH (21:38)
[2017-04-30] MEDS: GENTAMICIN 0.3% OPHT DROPS 5ML RTEYE SCH ×7 (01:41→21:03)
[2017-04-30] MEDS: LORazepam 1 MG TAB PO SCH ×4 (06:37→21:05)
[2017-04-30] MEDS: DIVALPROEX ER 500 MG TAB PO SCH (08:38)
[2017-04-30] MEDS: FERRO-SEQUELS 65 MG TAB.ER PO SCH (08:39)
[2017-04-30] MEDS: diphenhydrAMINE 50 MG CAP PO SCH ×2 (08:40→21:04)
[2017-04-30] MEDS: LORazepam 1 MG TAB PO PRN (08:40)
[2017-04-30] MEDS: HALOPERIDOL 5 MG TAB PO SCH ×2 (08:41→21:06)
--- NOTE | 2017-04-30 12:13 | SOAPPROG ---
SOAP Progress Note Assessment/Plan: Assessment: 31 yo with complicated hx. Records indicate he has been dx with multiple conditions, including Bipolar, Schizophrenia, Schizoaffective, IDD, PDD, ASD. He attended a special needs HS in [place] according to Dr. uW's initial psych assessment. 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 When his POC both last year, [facility] [place] During that time, he was receiving services through [facility] and being treated by Zeeshan Melendez. Records indicate it was Dr. Melendez who started patient on Clozaril with max dose being 400mg. Information provided by [facility] indicate while he lived in [place], patient was tried on many different meds including Risperdal, Geodon, Abilify, Zyprexa, Pen Argyl and Depakote. When this MD spoke to [facility] on phone on 04/29/17, Rubina did not mention any prior h/o NMS, EPS or dystonia while taking neuroleptics. [facility] did say that patient was noncompliant with Clozaril while living in [place]. He became hypersexual, aggressive and difficult to manage while living with [facility]. She took him to ED and he was admitted to [facility] in 04/09. While there, patient was dehydrated and had AMILCAR as well as s/s of rhabdomyolysis. He was taken off Clozaril at the time and sent home. [facility] brought patient back to [facility] ED due to out of control bxs, hypersexuality. Patient was off psych meds completely for a couple weeks at this time. He had elevated CK and slightly elevated Na. Since then, patient was admitted to and restarted on psych meds including Zyprexa and Depakote for mood stability. Plan: 04/29/17 14:11 1. Spoke at length with [facility], Rubina, by phone. She is convinced patient had toxoplasmosis as a child b/c he "lived with a lot of cats." tried to assure [facility] that patient is currently asymptomatic for toxo infxn. He is afebrile and has no lymphadenopathy, malaise. In addition, MRI and CT were both negative for any features consistent with SUPERVISOR LATHING toxo infxn. tried to explain to [facility] that a significant portion of adults are seropositive for toxoplasmosis and that testing for it would not indicate any type of SUPERVISOR LATHING involvement that could be relevant to his current psych presentation. In addition, explained that MRI is the gold standard for diagnosing long-term SUPERVISOR LATHING effects. She said, "well I read a bunch of stuff on the [facility] website and I'm worried." MD's efforts to reassure [facility] were not successful. 2. Start Emeds for Day #2. Haldol 5mg IM BID and Ativan 1mg IM QID if patient refuses PO. 3. Will change to Depakote ER 1500mg daily and plan to increase rapidly to most effective dose. 4. D/C Zyprexa and start Haldol 5mg BID for aggression and mood stability. 5. MD reviewed labs and CK has been trending down significantly since admission to [facility]. His CK on 04/21 was 566 and on 04/23 it was 177. This drop occurred rapidly after administration of IVF. Further indication that the cause of the rhabdo was dehydration rather than NMS. Patient's Na was also 145 on and 140 on 04/23, though it adiel back to 145 on 04/24/17. His most recent BUN/ CR on 04/24/17 was only sightly below normal (6/0.6). In addition his protein and albumin were both low indicating lack of adequate PO intake most likely over several weeks or longer. RN tried to draw blood for lab draw this AM, but patient's veins were collapsed d/t hypovolemia. Based on his recent labs and lack of any s/s of rhabdo or hypernatremia, MD believes patient is at low risk currently and will postpone labs until patient is more adequately hydrated. Will continue to push fluids. This AM patient did drink water and milk. If his PO intake drops off, may consider sending him to ED for IVF and draw labs at that time. 6. Patient has conjunctivitis in right eye. Will order Gentamicin drops. 7. reviewed neurology note from 2N admission. Neurologist noted that patient had erratic movements not consistent with epileptiform activity. He would alternately raise and lower UE and LE while lying down. Neurologist did not believe patient was having seizures. Given his conclusions, this MD sees no contraindication to re-starting Clozaril. However, after reading Dr. Wu's initial psych assessment, this MD questions whether or not Clozaril is necessary or even sufficiently effective to warrant it's use. According to information obtained by Dr. Christopher, patient was on Clozaril briefly in [place] in 2007, and then again in 2017. According to [facility], he was not compliant on meds. However, AOC reports patient was more functional in [place] and did not have as many issues with hypersexual behavior and frequent masturbating and inappropriate behaviors. Whether this is d/t meds or circumstances or progression of illness is unclear. AOC did say that "none of those meds" meaning the atypical antipsychotics (Risperdal, Zyprexa, Geodon, Abilify and Consta) were "very helpful." It's unclear how the AOC knows this information, since she admits she "doesn't really know" the details of his psych hx when he was living with POC. Without more accurate information, I would not presume that no other neuroleptics were tolerable and effective. It's also unclear whether or not mood stabilizers like lithium and Depakote could be more effective than antipsychotic meds for patient now. Pen Argyl and Depakote tend to be more effective mood stabilizers for adults than antipsychotics. Patient may respond differently to meds at 31 than he did as teenager. 8. AOC said she was trying to contact other relatives and gather more information about patient's medical and psych hx. MD encouraged her to write down a chronology of patient's hx as best she can to help inform his current psych treatment and ongoing care in future. She agreed. 9. MD and treatment team, RN, CM, therapist, spoke with Cecy, the recovery unit operator, this AM and reviewed med changes, emergency meds as well as the behavior support plan for patient. There is a comprehensive behavior plan to address patient's inappropriate behaviors that has been provided to all staff, including patient's 1:1. 04/30/17 11:58 1. Patient shows significant improvement since Monday night. Yesterday and today he stayed in room per behavior plan. He did not take his clothes off or masturbate at all, though he did make inappropriate sexual comments to staff. 2. Patient remains on 1:1, is following prompts from staff and cooperating with behavior support plan. 3. Patient has been taking PO meds. Has not needed any IM meds. 4. Increase Depakote ER to 2000mg starting tomorrow. Patient has been getting dose in AM to help with impulse control, aggression and mood stability throughout the day. 5. Continue Haldol for aggression, mood stability and agitation. 6. Will continue Emeds Day #3 as backup for PO meds. 7. Continue Ativan and Benadryl for agitation, anxiety, hyperactivity, mood lability and sleep. Patient slept more last night after receiving these meds, after staying awake until 3am on Monday. 8. [facility], Rubina, is trying to collect medical and psych information from other family members. Recommend [facility] for med records from previous hospitalizations in [place]. CM will follow up with this on Monday. 9. Patient has been drinking some fluids. He had 200cc of water + orange juice and milk this AM. He has urinated twice in past 18 hrs. MD does not believe he needs IVF at this time. Recommend BMP and CK on Monday if able to get blood which was not possible on Monday. 10. Continue Gentamicin for conjunctivitis - improving Subjective: Met with patient, reviewed chart and d/w staff. Patient is standing in room requesting "a book to read." He denies any complaints of itching, watery, or blurred vision. His conjunctiva looks less red today. He is slow to answer questions, with long response latency. When MD asks if he has any concerns or questions, he says "I want to discharge." No aggression, no SI/HI, no inappropriate sexual behavior during interview, though staff report he has made inappropriate sexual comments to 1:1 staff last night. Much calmer and more cooperative with staff direction today. Objective: Vital Signs Temp Pulse Resp BP Pulse Ox 37.0 C 53 L 14 92/46 L 97 04/29/17 22:31 04/30/17 06:00 04/30/17 06:00 04/30/17 06:00 04/30/17 06:00 04/29/17 04/30/17 05/01/17 05:59 05:59 05:59 Intake Total 1940 810 Balance 1940 810 MSE: Affect: Flat Mood: No response TP: Slow, response latency, paucity of speech, confused TC: No SI/HI, no psychotic sxs Insight/Judgment: Impaired - Time Spent With Patient Time Spent With Patient: 20" - Pending Discharge Pending Discharge Within 24 Hours: No Pending Discharge Within 48 Hours: No ICD10 Worksheet Patient Problems: Problems Problem Status Onset Intellectual disability Acute Schizoaffective disorder, bipolar type Acute Aggressive behavior Acute Autism spectrum disorder Acute Dehydration Acute
[2017-04-30] MEDS ORDERED: LORazepam 2 MG/ML INJ IM PRN (12:52)
[2017-04-30] MEDS ORDERED: HALOPERIDOL LACT 5 MG/ML INJ IM PRN (12:52)
[2017-05-01] MEDS: GENTAMICIN 0.3% OPHT DROPS 5ML RTEYE SCH ×6 (02:16→21:33)
[2017-05-01] MEDS: LORazepam 1 MG TAB PO SCH (05:50)
[2017-05-01] MEDS: DIVALPROEX ER 500 MG TAB PO SCH (09:30)
[2017-05-01] MEDS: diphenhydrAMINE 50 MG CAP PO SCH ×2 (09:30→21:33)
[2017-05-01] MEDS: HALOPERIDOL 5 MG TAB PO SCH (09:30)
[2017-05-01] MEDS: FERRO-SEQUELS 65 MG TAB.ER PO SCH (10:15)
[2017-05-01] MEDS ORDERED: LORazepam 2 MG/ML INJ IM PRN (10:41)
[2017-05-01] MEDS ORDERED: HALOPERIDOL LACT 5 MG/ML INJ IM PRN (10:41)
--- NOTE | 2017-05-01 10:49 | SOAPPROG ---
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 Patient has a history of being prescribed either Depakote with an antipsychotic or Clozapine since 2007, with >5 past psychiatric hospitalizations. Patient this AM appears sedated and slowed. Plan: Short Term Certification. Court ordered medication hearing pending. Continue Depakote 2000mg PO QAM for yumiko EMED DAY #4 Change Haldol to Risperdal SL 2mg BID, if refused Haldol 5mg IM BID Continue Bendadryl 50mg BID to prevent EPS from antipsychotic Reduce Ativan 1mg TID, if refused Ativan 1mg IM Supportive care, encourage PO fluid intake - patient at risk for dehydration from disorganization/catatonia Guardian/Aunt requesting medical evaluation to rule out infection Check AM BMP, Depakote level, CK, HIV Ab Aunt will bring in OTC B-complex supplement and genotype testing results 05/01/17 11:00 Subjective: Patient is largely mute and unresponsive to questions. With structured questions responds that he is in the hospital in [place], Apr 2017. Denies SI then later endorses SI. Denies AH/paranoia but mumbles statements about ' paranormal activity.' Unable to explain how he feels or why he is in the hospital. Agrees to have blood draw in AM to check hydration, HIV status. Objective: Vital Signs Temp Pulse Resp BP Pulse Ox 36.5 C 57 L 14 100/58 L 95 05/01/17 06:00 05/01/17 06:00 05/01/17 06:00 05/01/17 06:00 05/01/17 06:00 04/30/17 05/01/17 05/02/17 05:59 05:59 05:59 Intake Total 810 1200 Output Total 800 Balance 810 400 Tired WM sleeping initially. Affect: Appears drowsy, tired, slowed this AM. Briefly irritable and gives staff middle finger gestures. Needs multiple prompts to sit up and take medication. Speech mumbled, soft words, few words. Mood - no answer. Thought content - denies SI then endorses SI, denies paranoia /AH but later talks about 'paranormal things happening.' Denies violent thoughts. Oriented to month and year, reports being in [place]. Insight poor, judgment impaired. Aunt Rubina gives consent for any blood draws to monitor for infection, dehydration, muscle breakdown, or medical condition contributing to symptoms. Staff report patient slept 4.5 hours last night, eating 50% meals, 810-1200 cc PO intake over past 24-48 hours. Using bathroom appropriate some times. Over weekend was hypersexual, agitated, in seclusion, later running thru halls and refusing medication at times with severe agitation. Zyprexa changed to Haldol, Depakote dose increased, scheduled Ativan started, scheduled Benadryl started. Aunt Rubina over phone reports patient was in normal school and did not have special education in elementary school 'he was a sweet, odd kid' growing up but was socially akward and had impaired social skills and some odd behaviors and reduced language skills, but in regular elementary school classes. In middle school and high school had disruptive behavior and emotional disturbance and required alternative schooling. Patient was stable on Clozapine for several years prior to living with Rubina Apr-June 2016, but had poor hygiene, needed prompts for bathing, had apathy and low motivation for social interaction, paranoia about leaving house. Patient was in adult care placement June - December. patient was stable on 400mg Clozapine but refusing blood draws and later refused PO Clozapine. Patient had severe insomnia, severe agitation, hypersexual and inappropriate behaviors, severe mood swings with suicidal and violent statements, hospitalized at [facility]. Patient discharged from [facility] to [facility] due to dehydration from poor PO intake as well as possible rhabdomyolysis, then discharged home briefly without psychiatric medications. Aunmichael Cespedes requests medical evaluation for possible infection or toxoplasmosis infection. She also reports patient had genotyping and was previously recommended to take 'Enlyte' nutritional supplement containing methylfolate and B-vitamins. - Time Spent With Patient Time Spent With Patient: 15 minutes - Pending Discharge Pending Discharge Within 24 Hours: No Pending Discharge Within 48 Hours: No ICD10 Worksheet Patient Problems: Problems Problem Status Onset Intellectual disability Acute Schizoaffective disorder, bipolar type Acute Aggressive behavior Acute Autism spectrum disorder Acute Dehydration Acute
[2017-05-01] MEDS ORDERED: LORazepam 1 MG TAB PO PRN (10:50)
[2017-05-01] MEDS: RISPERIDONE 2 MG ODT TAB SL SCH (21:34)
[2017-05-02] MEDS: GENTAMICIN 0.3% OPHT DROPS 5ML RTEYE SCH ×7 (01:38→21:17)
--- NOTE | 2017-05-02 08:30 | SOAPPROG ---
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 Patient had impulsive hypersexual behavior and bizarre disorganization with severe agitation, improved with Depakote, Haldol, Ativan, and Benadryl. Patient has a history of being prescribed either Depakote with an antipsychotic or Clozapine since 2007, with >5 past psychiatric hospitalizations. Patient this AM appears slowed with continued disorganization but is eating and drinking. Plan: Short Term Certification. Court ordered medication hearing pending. Continue Depakote 2000mg PO QAM for yumiko EMED DAY #5 Continue Risperdal SL 2mg BID, if refused Haldol 5mg IM BID Continue Bendadryl 50mg BID to prevent EPS from antipsychotic Continue Ativan 1mg TID, if refused Ativan 1mg IM Supportive care, encourage PO fluid intake - patient at risk for dehydration from disorganization/catatonia Labs pending Request 2nd opinion from Dr. Jerome regarding either possible ECT or alternative treatment recommendations 05/02/17 08:30 Subjective: CC: "getting discharged" "go to a hospital" "I want a new home." Patient is a poor historian with mutism at times (no answer to several questions ). With structured questioning denies anxiety or depression. No answer to questions regarding AH or paranoia. Unable to explain why he is in the hospital or where he would go after discharge. Makes fragmented statements about 'getting discharged' 'new home' and 'go to the hospital.' Endorses feeling slowed and tired. Objective: Vital Signs Temp Pulse Resp BP Pulse Ox 36.1 C 72 14 92/57 L 96 05/01/17 18:58 05/02/17 06:00 05/02/17 06:00 05/02/17 06:00 05/02/17 06:00 05/01/17 05/02/17 05/03/17 05:59 05:59 05:59 Intake Total 1200 1690 Output Total 800 500 Balance 400 1190 Alert WM, disheveled. Internal preoccupation. Mute at times - no speech to some questions. Brief few words. Thoughts disorganized. Mood "been thru a lot " affect restricted preoccupied. Denies SI or violent thoughts. No answer to questions about paranoia or AH. Insight/judgment impaired. Appears slowed with increased tone on exam but ambulating and able to sit at table and eat. Staff report patient cooperative with derrek carias risperdal yesterday. 1690 cc fluid intake. Having disorganized behavior but able to use toilet. Ate 50%, 75% meals. Inappropriately trying to hug staff. Needs frequent redirection due to disorganized behavior. Labs: BMP, Depakote level, CK, HIV Ab pending. - Time Spent With Patient Time Spent With Patient: 15 minutes - Pending Discharge Pending Discharge Within 24 Hours: No Pending Discharge Within 48 Hours: No ICD10 Worksheet Patient Problems: Problems Problem Status Onset Intellectual disability Acute Schizoaffective disorder, bipolar type Acute Aggressive behavior Acute Autism spectrum disorder Acute Dehydration Acute
[2017-05-02] MEDS: diphenhydrAMINE 50 MG CAP PO SCH ×2 (09:10→09:28)
[2017-05-02] MEDS: DIVALPROEX ER 500 MG TAB PO SCH (09:10)
[2017-05-02] MEDS: RISPERIDONE 2 MG ODT TAB SL SCH ×2 (09:10→19:49)
[2017-05-02] MEDS: FERRO-SEQUELS 65 MG TAB.ER PO SCH ×2 (09:10→09:31)
[2017-05-02] MEDS: [UNRECOGNIZED DRUG - OTHER] PO SCH ×2 (09:14→09:29)
[2017-05-02 09:18] LABS: CREATINE KINASE 94 IU/L (0-224)
[2017-05-02] MEDS ORDERED: diphenhydrAMINE 50 MG CAP PO PRN (10:34)
[2017-05-02] MEDS ORDERED: LORazepam 2 MG/ML INJ IM PRN (10:47)
[2017-05-02] MEDS ORDERED: HALOPERIDOL LACT 5 MG/ML INJ IM PRN (10:47)
[2017-05-02] MEDS: LORazepam 1 MG TAB PO SCH ×2 (15:42→19:49)
--- NOTE | 2017-05-02 15:43 | SOAPPROG ---
SOIKER Progress Note Assessment/Plan: Assessment: Plan: 05/02/17 15:40 Current recommendations are: D/c diphenhydramine due to negative anticholinergic influence. Consider d/c'ing all neuroleptics due to likelihood of catatonia. If not, d/c haloperidol for now. I will discuss possible use of ECT with pt's aunt. Subjective: Pt seen briefly as he would not talk to me. I reviewed all available information in the EMR and chart. Will speak with Aunt and hopefully more thoroughly evaluate pt prior to completing evaluation. Objective: Vital Signs Temp Pulse Resp BP Pulse Ox 36.1 C 72 14 92/57 L 96 05/01/17 18:58 05/02/17 06:00 05/02/17 06:00 05/02/17 06:00 05/02/17 06:00 Laboratory Results 05/02/17 07:15 05/01/17 05/02/17 05/03/17 05:59 05:59 05:59 Intake Total 1200 1690 500 Output Total 800 500 Balance 400 1190 500 - Time Spent With Patient Time Spent With Patient: 90" ICD10 Worksheet Patient Problems: Problems Problem Status Onset Intellectual disability Acute Schizoaffective disorder, bipolar type Acute Aggressive behavior Acute Autism spectrum disorder Acute Dehydration Acute
[2017-05-03] MEDS: GENTAMICIN 0.3% OPHT DROPS 5ML RTEYE SCH ×3 (03:04→08:55)
[2017-05-03] MEDS ORDERED: LORazepam 1 MG TAB PO PRN (08:40)
--- NOTE | 2017-05-03 08:46 | SOAPPROG ---
SOAP Progress Note Assessment/Plan: Assessment: Schizoaffective Disorder bipolar type Mild Intellectual Disability Autism Spectrum Disorder Patient was in restraints without PO intake in ER for 3 days, then in ICU for IV fluids for dehydration prior to transfer to . Patient was in [facility] in early March 2017 with catatonia and CK level of 7000 per notes in [id number] system, after transfer from psychiatric hospitalization at [facility]. Patient has a history of being prescribed either Depakote with an antipsychotic or Clozapine since 2007, with >5 past psychiatric hospitalizations. Patient had impulsive, severe hypersexual behavior and bizarre disorganization with severe agitation when admitted to , improved with Depakote, Haldol, Ativan, and Benadryl over weekend of 04/29/17-04/30/17; however patient currently appears slowed down with continued disorganization and episodic hypersexuality. Patient had Na+148 on 05/02/17 concerning for borderline dehydration. Plan: Short Term Certification. Court ordered medication hearing pending. Patient on line of sight, assault precautions, inappropriate sexual behavior precautions Discontinue EMEDS Discontinue Benadryl PRN Continue Depakote ER 1500mg Reduce Risperdal SL 1mg QHS due to slowing and history of catatonia Continue Ativan 1mg TID Ativan 1mg [id number] PRN agitation Again reviewed with staff patient needs multiple prompts for fluid intake, push fluids, monitor PO fluid intake Consider rechecking BMP, CK, Depakote level in 24-[address] Jerome, who will discuss possible ECT with aunt/guardian 05/03/17 08:55 Subjective: CC: "OK" Patient has minimal speech with few words. Reports feeling "OK" and "trying to get out." No answer when asked why he is in the hospital. With structured questions denies feeling stiff or having pain but endorses feeling tired and slowed. Denies paranoia or AH or violent thoughts or suicidal thoughts. Objective: Vital Signs Temp Pulse Resp BP Pulse Ox 36.7 C 70 16 96/51 L 95 05/03/17 07:05 05/03/17 07:05 05/03/17 07:05 05/03/17 07:05 05/03/17 07:05 Laboratory Results 05/02/17 07:15 05/02/17 05/03/1718 05:59 05:59 05:59 Intake Total 1690 820 Output Total 500 200 Balance 1190 620 Alert WM. Ambulatory. Sitting and eating a muffin slowly. Mild increased tone. Speech muffled, soft/slow. Mood 'OK' affect preoccupied. Denies SI or HI or AH or paranoia. No insight impaired judgment. Patient has limited vocabulary consistent with Mild Intellectual Disability. Staff report 05/01/17 - 05/02/17 had 1690 CC PO Staff report 05/02/17 - 05/03/17 had 820 cc PO Ate 100% dinner last PM. Ate 50% breakfast this AM with 250cc fluid so far this AM Staff report patient has continued disorganized behavior and hypersexual statement and behaviors but cooperative with PO medication and redirection; slept overnight. - Time Spent With Patient Time Spent With Patient: 10 minutes - Pending Discharge Pending Discharge Within 24 Hours: No Pending Discharge Within 48 Hours: No ICD10 Worksheet Patient Problems: Problems Problem Status Onset Intellectual disability Acute Schizoaffective disorder, bipolar type Acute Aggressive behavior Acute Autism spectrum disorder Acute Dehydration Acute
[2017-05-03] MEDS: FERRO-SEQUELS 65 MG TAB.ER PO SCH (08:54)
[2017-05-03] MEDS: DIVALPROEX ER 500 MG TAB PO SCH ×2 (08:54→09:24)
[2017-05-03] MEDS: LORazepam 1 MG TAB PO SCH ×3 (08:55→20:34)
[2017-05-03] MEDS: [UNRECOGNIZED DRUG - OTHER] PO SCH ×2 (08:57→09:25)
--- NOTE | 2017-05-03 13:55 | SOAPPROG ---
SOAP Progress Note Assessment/Plan: Assessment: 1. Psychiatric issues related to autism spectrum disorder. No signs or symptoms of any infectious or metabolic disease. Presentation completely non consistent with toxoplasmosis including normal brain imaging. 2. Hypernatremia, mild with sodium of 148. Not in any danger of adverse events related to hydration. Encourage normal p.o. intake. Would recheck basic metabolic profile routinely with any future labs regarding drug levels. 3. History of hypersexuality and risk for STDs. RPR was negative during his recent hospitalization. HIV testing is pending. If he is HIV positive, appropriate follow-up include CD4 count and viral load. If he is a good suppressed then further evaluation regarding possible opportunistic infections would be appropriate. Discussed with the patient's aunt, guardian, Rubina Herrera. 05/03/17 14:00 Subjective: Asked to see patient about possibility of infectious or metabolic etiology of psychiatric issues. Per psychiatrist Dr. Wu patient's aunt who is his guardian was concerned and raise the issue of toxoplasmosis exposure as a child. Patient is currently without complaints. Past medical history is significant for autism spectrum disorder, intellectual debility, and behavioral issues. He has no history of surgeries or significant medical disease. Review of systems: He did Objective: Vital Signs Temp Pulse Resp BP Pulse Ox 36.7 C 72 16 93/50 L 96 05/03/17 07:05 05/03/17 08:00 05/03/17 08:00 05/03/17 08:00 05/03/17 08:00 Laboratory Results 05/02/17 07:15 05/02/17 05/03/17 05/04/17 05:59 05:59 05:59 Intake Total 1690 820 Output Total 500 200 Balance 1190 620 Physical Exam - Physical Exam General Appearance: WD/WN, alert, no apparent distress, other (Not fully cooperative with exam. Refuses to open mouth.) EENT: PERRL/EOMI Neck: supple Respiratory: normal breath sounds, No crackles, No rhonchi, No wheezing Cardiac/Chest: regular rate, rhythm, No edema, No JVD, No diastolic murmur, No systolic murmur Skin: normal color, warm/dry Neuro/Psych: no motor/sensory deficits, alert, normal mood/affect, No abnormal gait (Reduced arm swing left upper extremity) ICD10 Worksheet Patient Problems: Problems Problem Status Onset Intellectual disability Acute Schizoaffective disorder, bipolar type Acute Aggressive behavior Acute Autism spectrum disorder Acute Dehydration Acute
[2017-05-03] MEDS: RISPERIDONE 1 MG ODT TAB SL SCH (20:34)
[2017-05-03] MEDS ORDERED: RISPERIDONE 2 MG ODT TAB SL SCH ×2 (21:00)
--- NOTE | 2017-05-04 03:20 | GCON ---
[f rep st] CONSULTATION PSYCHIATRIC CONSULTATION AND ECT CONSULTATION DATE OF CONSULTATION: 05/01/2017 DATES OF EVALUATION: 05/01/2017, 05/02/2017, and 05/03/2017. TOTAL TIME SPENT: 120 minutes. Records reviewed hospitalization on the medical floor in the ICU from 2016 to 04/28/2017, including cranial imaging studies and neurology consult; psychiatric consultation by Dr. Indu Christopher dated 04/26/2017; psychiatric nurse liaison care plan by Martha Davis dated 04/27/2017; records from emergency room evaluation prior to this admission; summary from [facility] dated 04/14, where patient was hospitalized for rhabdomyolysis; and [employer] [facility] report dated 01/31/2017 for his genomic testing. REASON FOR CONSULTATION: Patient is a 31-year-old male with somewhat unclear history, though certainly lifelong difficulties with behaviors, mood, and possibly psychosis. He was living with his parents throughout his life until they both within 1 year with his father passing away in February of 2016. After that, he went to [place] to live with an uncle, though apparently this was an unacceptable setting for him for reasons that are unknown to me, but he was acting out and came to [place] to live with his aunt. His aunt states that he was doing better in her opinion in that he was not no longer isolating in his room, throughout the day was interacting a little bit more, but would demonstrate hypersexual and aggressive behaviors at times. She states that he was extremely awkward socially, did not like to leave the house, and would at times appear to be paranoid. These behaviors escalated to the point that she had to bring him to the emergency department and he was hospitalized at [facility] at the recommendation of patient's outpatient psychiatrist, Dr. Zeeshan Melendez, whom he sees through [facility]. He was then admitted there because they wanted to get him off clozapine, which he had taken for the previous 3 years. This had been decreased from a high of 400 mg to 100 mg and the decrease coincided with his increase in aggressive and hypersexual behavior. They did discontinue the clozapine at [facility] and then the patient became lethargic and was sent to the emergency department. In the emergency department, he was noted to have rhabdomyolysis with a CK around 7000 and was hospitalized for rehydration. In the hospital, he did receive the rehydration and was medically stabilized, but [facility] refused to take him back. They were unable to place him elsewhere and he went back home with his aunt. After only a few days, he again became agitated and she had to bring him back to the emergency department here in [place]. In the emergency department here, he was noted to again have of a CK over 1000 and was admitted to the ICU for rehydration with presumptive rhabdomyolysis. While in the ICU, his CK normalized, but his behaviors were extremely agitated. He was aggressive physically, spitting, and was acting out sexually. He was masturbating and making inappropriate sexual comments towards female staff. He was given Geodon, Haldol, Zyprexa, Ativan, and ultimately placed back on clozapine. He was on the clozapine for only a couple of days when he had a generalized tonic-clonic seizure. He actually had 3 episodes over the course of a few minutes that appeared to be epileptic in nature. It was noted by staff and Dr. Dav Nunez, who saw him in neurologic and neurology consult, that he had no postictal state, however. This made it somewhat atypical. He received a CT scan that showed a very small finding in the occipital lobe that could have been consistent with a hemorrhagic lesion. There was no subarachnoid bleed or other evidence of hemorrhagic stroke. Dr. Nunez did not believe it represented hemorrhagic stroke. A week later, he received an MRI of the brain that ruled out any stroke. He was placed on Keppra and then did not have further epileptic activity. Ultimately, the Keppra was actually discontinued as he was refusing p.o. medications. Patient was then transferred to the [facility] inpatient unit because of his continued acting out, apparent psychosis, and what may have appeared to be catatonia. On the unit, the patient has continued to appear somewhat catatonic. He will lie motionless in bed throughout most of the day. He is very disorganized and unable to relate his needs or communicate effectively with others. He does not eat or drink without constant prompting and even then it is less than adequate. He is compliant with minimal medications, though takes consistent prompting. He continues to act out sexually, making inappropriate comments toward staff and masturbating frequently requiring redirection. He will also become abruptly agitated, getting out of bed and running down the [place], and intrusive of others. He has not acted out physically in an aggressive way, though will again make inappropriate comments or use profanity toward staff or fellow patients. I have attempted to evaluate him on 3 occasions over 3 days, and he is unwilling to talk to me to any significant extent. I believe this as much a reflection of his level of disorganization and paranoia as anything, but he will simply state that he wants to be out of the hospital and he does not like the hospital, and that he wants to leave. We had a phone conversation today with his [facility] social work case manager, his aunt and another resource person, myself, Dr. Wu, and [facility] administrator health care facility, and his aunt stated that she also notes that he is still very disorganized, but his main issue is wanting to leave the hospital. PAST PSYCHIATRIC HISTORY: Significant for longstanding history of behavioral issues. He apparently had not been diagnosed with a developmental disorder or autism spectrum disorder until he saw Dr. Melendez here at [facility]. Dr. Wu also concurs with this, as do I. He has had numerous medication trials in the past that are well outlined in Dr. Christopher' consultation note. These include benzodiazepines including Ativan, Geodon, Depakote, Lexapro, Clozaril, Risperdal , Abilify, Benadryl, clonidine, Prozac, and Ambien. He had prominent symptoms of excessive sedation and weight gain with several of the atypicals including clozapine, but apparently remained relatively stable on this for several years. He apparently had been tapering it over the past 2 months, which coincided with his decompensation. ALLERGIES: Listed to buspirone, citalopram, paroxetine, and ziprasidone. PAST MEDICAL HISTORY: Well documented elsewhere, but is not consistent with any previous diagnosis of epilepsy or traumatic brain injury. He has no other significant chronic illnesses. SOCIAL HISTORY: Largely as above. The patient is currently in [facility]. His aunt is his guardian and guardianship papers are found in the chart. The patient's aunt's name is Rubina Herrera, phone number [phone]. No substance use history is found. No legal history is found. PERTINENT LABORATORY: Recent serum chemistries drawn on 05/02/2017 reveal sodium of 148, otherwise normal. CK was normal at 94. MENTAL STATUS EXAMINATION: Reveals an unkempt, malodorous, male. He is lying in a hospital bed, staring at the ceiling, and not moving. I introduce myself again and he does not make eye contact nor does he speak. I attempt to elicit a response from him with repeated questions, at which time he sits up abruptly, then stands up, and runs out of the room down the del tor[place]. I follow him to the day room where he is sitting on the couch, staring ahead, and he refuses to interact. This pattern is repeated several times over 3 days. His affect is blunted, if not flat. His mood is not stated. His thought process is described by staff as being disorganized, though I did not elicit a response to be able to evaluate this. I also could not evaluate his orientation or memory. IMPRESSION: The patient is a 31-year-old male with a history of likely autism spectrum disorder and mood behavioral and psychotic symptoms. He has been treated for a number of years and was in a rather cloistered environment within his home until his parents abruptly several years ago. Since then, he has had several different placements and apparently had been stable on clozapine until it was discontinued several months ago due to over sedation. He has a history of over-sedation on numerous other medications as well. His current presentation is somewhat confusing as it could represent low- level delirium from either his rhabdomyolysis, malnutrition, or a combination of other factors. He does appear to be catatonic at times and this could be also contributing to not only his mental status, but the tendency toward the rhabdomyolysis as a mild form of neuroleptic malignant syndrome. I have discussed the case extensively with the team and Dr. Wu, and it is agreed that he has been stable on neuroleptics in the past. His picture of catatonia is somewhat unclear and we will therefore minimize the use of neuroleptics, avoiding any use of typical antipsychotics, but also continue at least the Risperdal at low dose, 1 mg daily at this time. We will emphasize the use of the valproic acid, as this is important for mood stabilization, calming, and impulse control. He seems to be tolerating this well. Level is pending for tomorrow. I will follow along and if his symptoms of catatonia appear more prominently, we may consider a discussion with the team and patient's guardian of the use of electroconvulsive therapy in order to help with his acute presentation. Thank you for the consultation. /[id number]/MODL MTDD
[2017-05-04] MEDS: [UNRECOGNIZED DRUG - OTHER] PO SCH (08:10)
[2017-05-04] MEDS: DIVALPROEX ER 500 MG TAB PO SCH (08:11)
[2017-05-04] MEDS: FERRO-SEQUELS 65 MG TAB.ER PO SCH (08:11)
[2017-05-04] MEDS: LORazepam 1 MG TAB PO SCH ×4 (08:12→20:32)
--- NOTE | 2017-05-04 10:32 | SOAPPROG ---
SOAP Progress Note Assessment/Plan: Assessment: Schizoaffective Disorder bipolar type Borderline Intellectual Functioning Autism Spectrum Disorder Patient was in restraints without PO intake in ER for 3 days for severe agitation and psychosis, then in ICU for IV fluids for dehydration prior to transfer to . Patient was in [facility] in early March 2017 with catatonia and CK level of 7000 per notes in [facility] system, after transfer from psychiatric hospitalization at [facility]. Patient has a history of being prescribed either Depakote with an antipsychotic (including Risperdal Consta) or Clozapine since 2007, with >5 past psychiatric hospitalizations. Patient had Na+148 on 05/02/17 concerning for borderline dehydration. Over past 24 hours continued marginal/poor PO intake; last PM was hyperkinetic and pacing and making paranoid statements about aliens and hypersexual comments. This AM appears sedated, slowed, but has 500cc fluid intake 800-10:30 , improved PO intake with prompts after AM medications. Plan: Short Term Certification. Court ordered medication hearing pending. Patient on line of sight, assault precautions, inappropriate sexual behavior precautions Continue Depakote ER 1500mg Continue Risperdal SL 1mg QHS (reduced 05/03/17); Risperdal 0.5mg BID PRN severe agitation Increase Ativan 1mg four times a day for catatonia Continue Ativan 1mg [id number] PRN agitation Again reviewed with staff patient needs multiple prompts for fluid intake, push fluids, monitor PO fluid intake Check CMP, CK, Depakote level in AM - medical restraint if needed, guardian/ aunt consents for blood draws 05/04/17 10:35 05/04/17 10:37 Subjective: CC: "OK" "Not sure" Patient is mostly mute and no answer to most questions. Denies SI or HI or paranoia or anxiety or somatic complaints. Able to drink fluids multiple times with prompts. Objective: Vital Signs Temp Pulse Resp BP Pulse Ox 36.3 C 50 L 14 93/50 L 100 05/04/17 06:35 05/04/17 06:35 05/04/17 06:35 05/03/17 08:00 05/04/17 06:35 Laboratory Results 05/02/17 07:15 05/03/17 05/04/17 05/05/17 05:59 05:59 05:59 Intake Total 820 1200 Output Total 200 Balance 620 1200 Alert WM, rosacea on face, speech soft few words, no words with several questions. Drinking fluid with prompts. Thoughts - poverty of information, minimal content. Denies AH or paranoia or SI or HI. Impaired insight/judgment Staff report yesterday PM was pacing the halls and made brief odd/paranoid statements about aliens, some brief hypersexual statements, but redirectable. Slept 6.5 hours. - Time Spent With Patient Time Spent With Patient: 10 minutes - Pending Discharge Pending Discharge Within 24 Hours: No Pending Discharge Within 48 Hours: No ICD10 Worksheet Patient Problems: Problems Problem Status Onset Intellectual disability Acute Schizoaffective disorder, bipolar type Acute Aggressive behavior Acute Autism spectrum disorder Acute Dehydration Acute
[2017-05-04] MEDS ORDERED: risperiDONE 0.5 MG TAB PO PRN (10:37)
[2017-05-04] MEDS: RISPERIDONE 1 MG ODT TAB SL SCH (20:31)
[2017-05-05] MEDS: LORazepam 1 MG TAB PO SCH ×4 (06:10→20:32)
[2017-05-05] MEDS: DIVALPROEX ER 500 MG TAB PO SCH (08:37)
[2017-05-05] MEDS: [UNRECOGNIZED DRUG - OTHER] PO SCH (08:38)
[2017-05-05] MEDS: FERRO-SEQUELS 65 MG TAB.ER PO SCH (08:38)
[2017-05-05 09:46] LABS: CREATINE KINASE 77 IU/L (0-224)
--- NOTE | 2017-05-05 10:56 | SOAPPROG ---
SOAP Progress Note Assessment/Plan: Assessment: Schizoaffective Disorder bipolar type versus Bipolar Disorder with psychotic features History of Catatonia Borderline Intellectual Functioning Autism Spectrum Disorder Patient was in restraints without PO intake in ER for 3 days for severe agitation, violent and hypersexual behavior and psychosis, then in ICU for IV fluids for dehydration prior to transfer to . Patient was in [facility] in early March 2017 with catatonic symptoms and CK level of 7000 per notes in [facility] system, after transfer from psychiatric hospitalization at [facility]. Patient has a history of being prescribed either Depakote with an antipsychotic (including Risperdal Consta) or Clozapine since 2007, with >5 past psychiatric hospitalizations. Aunt and IMAGINE team report patient has FSIQ=72, past diagnoses of Autism from two specialized psychologist; at baseline is hypoverbal with apathy but eating and drinking well and able to change clothes and bathe independently. Patient has improved PO intake this AM. Patient has continued partial mutism, disorganization, not cooperative with bathing/shower assistance and changing clothes; needs multiple prompts to eat and drink. Plan: Short Term Certification Patient stipulated for court ordered medications Patient on line of sight, assault precautions, inappropriate sexual behavior precautions Continue Depakote ER 1500mg Continue Risperdal SL 1mg QHS (reduced 05/03/17); Risperdal 1mg BID PRN severe agitation Court Ordered MED: Zyprexa 5mg IM if refusing PO Risperdal Continue Ativan 1mg four times a day for catatonia Court Ordered MED: Ativan 1mg IM if refusing PO Ativan Again reviewed with staff patient needs multiple prompts for fluid intake, push fluids, monitor PO fluid intake, hygiene/showering Ordered Metrogel for possible facial skin infection Reviewed above plan on phone with aunmichael 05/05/17 10:58 Subjective: CC: "OK" "I'm hungry" Patient has no response to most questions. Reports mood is "OK." Reports he is willing to eat and drink today. Denies pain, sedation, slowing, suicidal thoughts, violent thoughts, or AH. Objective: Vital Signs Temp Pulse Resp BP Pulse Ox 37.0 C 54 L 12 88/60 L 100 05/05/17 06:38 05/05/17 06:38 05/05/17 06:38 05/05/17 06:38 05/05/17 06:38 Laboratory Results 05/05/17 06:45 05/04/17 05/05/17 05/06/17 05:59 05:59 05:59 Intake Total 1200 1300 720 Output Total 1400 Balance 1200 -100 720 Alert WM, erythema on face. Speech soft few words. Mood "OK" affect odd, preoccupied. Thoughts briefly organized only few words, poverty of content. Denies SI or HI or paranoia or AH. Memory poor. Insight/Judgment poor. Able to drink fluids with multiple prompts. Able to follow brief, simple directions to stand and walk down hallway and sit at table. Staff report this AM ate entire breakfast and drank 1000cc fluid between 8AM and 10AM. BMP WNL with Na 143, glu 95, Cr 0.9; CK 77, Valp 104 - Time Spent With Patient Time Spent With Patient: 20 minutes - Pending Discharge Pending Discharge Within 24 Hours: No Pending Discharge Within 48 Hours: No ICD10 Worksheet Patient Problems: Problems Problem Status Onset Intellectual disability Acute Schizoaffective disorder, bipolar type Acute Aggressive behavior Acute Autism spectrum disorder Acute Dehydration Acute
[2017-05-05] MEDS ORDERED: LORazepam 2 MG/ML INJ IM PRN (11:09)
[2017-05-05] MEDS ORDERED: OLANZapine 10 MG/2 ML VIAL IM PRN (11:11)
[2017-05-05] MEDS: METRONIDAZOLE 0.75 % 45 GEL TP SCH ×2 (12:24→21:32)
[2017-05-05] MEDS: RISPERIDONE 1 MG ODT TAB SL SCH (20:32)
[2017-05-06] MEDS: LORazepam 1 MG TAB PO SCH ×4 (05:56→18:30)
[2017-05-06] MEDS: METRONIDAZOLE 0.75 % 45 GEL TP SCH ×2 (08:27→18:33)
[2017-05-06] MEDS: [UNRECOGNIZED DRUG - OTHER] PO SCH (08:27)
[2017-05-06] MEDS: FERRO-SEQUELS 65 MG TAB.ER PO SCH (08:27)
[2017-05-06] MEDS: DIVALPROEX ER 500 MG TAB PO SCH (08:27)
--- NOTE | 2017-05-06 11:50 | SOAPPROG ---
SOAP Progress Note Assessment/Plan: Per Dr. Wu's notes: Assessment/Plan: Assessment: Schizoaffective Disorder bipolar type versus Bipolar Disorder with psychotic features History of Catatonia Borderline Intellectual Functioning Autism Spectrum Disorder Patient was in restraints without PO intake in ER for 3 days for severe agitation, violent and hypersexual behavior and psychosis, then in ICU for IV fluids for dehydration prior to transfer to . Patient was in [facility] in early March 2017 with catatonic symptoms and CK level of 7000 per notes in [facility] system, after transfer from psychiatric hospitalization at [facility]. Patient has a history of being prescribed either Depakote with an antipsychotic (including Risperdal Consta) or Clozapine since 2007, with >5 past psychiatric hospitalizations. Aunt and IMAGINE team report patient has FSIQ=72, past diagnoses of Autism from two specialized psychologist; at baseline is hypoverbal with apathy but eating and drinking well and able to change clothes and bathe independently. Patient has improved PO intake this AM. Patient has continued partial mutism, disorganization, not cooperative with bathing/shower assistance and changing clothes; needs multiple prompts to eat and drink. Plan: Short Term Certification Patient stipulated for court ordered medications Patient on line of sight, assault precautions, inappropriate sexual behavior precautions Continue Depakote ER 1500mg Continue Risperdal SL 1mg QHS (reduced 05/03/17); Risperdal 1mg BID PRN severe agitation Court Ordered MED: Zyprexa 5mg IM if refusing PO Risperdal Continue Ativan 1mg four times a day for catatonia Court Ordered MED: Ativan 1mg IM if refusing PO Ativan Again reviewed with staff patient needs multiple prompts for fluid intake, push fluids, monitor PO fluid intake, hygiene/showering Ordered Metrogel for possible facial skin infection Reviewed above plan on phone with aunmichael 05/06/17 11:[address] ordered meds - patient has been taking all prescribed meds PO 2. No incidents of aggression, agitation or inappropriate sexual beahavior 3. Patient has been eating and drinking adequately - 2000cc of fluid in past 24hrs 4. Sodium level on 05/05/17 was 143 5. VPA level on 05/05/17 was 104.7 6. Patient was hypotensive (88/41) and bradycardic this AM, but denied symptoms. Continue to push fluids and monitor vitals. 7. Patient using topical Metrogel to treat skin breakdown on face. Subjective: Met with patient, reviewed chart and d/w staff. Patient presents much improved since last weekend when MD saw him. He is much calmer, more cooperative, able to interact minimally with peers and staff, attending groups and eating meals in dining room. This AM, MD observed patient in art group. He was making a watercolor picture of flower. He has psychomotor retardation, response latency and paucity of speech. When MD inquired how patient felt this morning, he only responded "OK" after at least one minute of delay. Staff who have been monitoring patient on LOS report that he can be more fluent and talkative at times. He has reportedly talked to [facility] about taking walks in nature and enjoying looking at trees. This is much more detailed communication than this MD has ever experienced talking to patient. Patient has been eating > 50% of meals and drinking at least 2000cc of fluids in past 24 hrs. His hypernatremia has resolved (Na is WNL at 143). Objective: Vital Signs Temp Pulse Resp BP Pulse Ox 36.7 C 53 L 16 81/44 L 93 05/05/17 21:24 05/06/17 08:00 05/06/17 08:00 05/06/17 08:00 05/06/17 08:00 Laboratory Results 05/05/17 06:45 05/05/17 05/06/17 05/07/17 05:59 05:59 05:59 Intake Total 1300 2000 Output Total 1400 Balance -100 2000 MSE: Affect: Constricted Mood: "OK" TP: Disorganized, slowed, mutism TC: No s /s of paranoia, no RIS, denies any SI/HI Insight/Judgment: Poor - Time Spent With Patient Time Spent With Patient: 20" - Pending Discharge Pending Discharge Within 24 Hours: No Pending Discharge Within 48 Hours: No ICD10 Worksheet Patient Problems: Problems Problem Status Onset Intellectual disability Acute Schizoaffective disorder, bipolar type Acute Aggressive behavior Acute Autism spectrum disorder Acute Dehydration Acute
[2017-05-06] MEDS: risperiDONE 0.5 MG TAB PO PRN (18:30)
[2017-05-06] MEDS: RISPERIDONE 1 MG ODT TAB SL SCH (19:13)
[2017-05-07] MEDS: risperiDONE 0.5 MG TAB PO PRN (02:23)
[2017-05-07] MEDS: LORazepam 1 MG TAB PO SCH ×4 (05:55→18:23)
[2017-05-07] MEDS: [UNRECOGNIZED DRUG - OTHER] PO SCH (08:15)
[2017-05-07] MEDS: FERRO-SEQUELS 65 MG TAB.ER PO SCH (08:15)
[2017-05-07] MEDS: DIVALPROEX ER 500 MG TAB PO SCH (08:16)
[2017-05-07] MEDS: METRONIDAZOLE 0.75 % 45 GEL TP SCH ×2 (09:16→18:27)
--- NOTE | 2017-05-07 12:10 | SOAPPROG ---
SOAP Progress Note Assessment/Plan: Per Dr. Wu's notes: Assessment/Plan: Assessment: Schizoaffective Disorder bipolar type versus Bipolar Disorder with psychotic features History of Catatonia Borderline Intellectual Functioning Autism Spectrum Disorder Patient was in restraints without PO intake in ER for 3 days for severe agitation, violent and hypersexual behavior and psychosis, then in ICU for IV fluids for dehydration prior to transfer to . Patient was in [facility] in early March 2017 with catatonic symptoms and CK level of 7000 per notes in [facility] system, after transfer from psychiatric hospitalization at [facility]. Patient has a history of being prescribed either Depakote with an antipsychotic (including Risperdal Consta) or Clozapine since 2007, with >5 past psychiatric hospitalizations. Aunt and IMAGINE team report patient has FSIQ=72, past diagnoses of Autism from two specialized psychologist; at baseline is hypoverbal with apathy but eating and drinking well and able to change clothes and bathe independently. Patient has improved PO intake this AM. Patient has continued partial mutism, disorganization, not cooperative with bathing/shower assistance and changing clothes; needs multiple prompts to eat and drink. Plan: Short Term Certification Patient stipulated for court ordered medications Patient on line of sight, assault precautions, inappropriate sexual behavior precautions Continue Depakote ER 1500mg Continue Risperdal SL 1mg QHS (reduced 05/03/17); Risperdal 1mg BID PRN severe agitation Court Ordered MED: Zyprexa 5mg IM if refusing PO Risperdal Continue Ativan 1mg four times a day for catatonia Court Ordered MED: Ativan 1mg IM if refusing PO Ativan Again reviewed with staff patient needs multiple prompts for fluid intake, push fluids, monitor PO fluid intake, hygiene/showering Ordered Metrogel for possible facial skin infection Reviewed above plan on phone with aunmichael 05/06/17 11:[address] meds - patient has been taking all prescribed meds PO 2. No incidents of aggression, agitation or inappropriate sexual beahavior 3. Patient has been eating and drinking adequately - 2000cc of fluid in past 24hrs 4. Sodium level on 05/05/17 was 143 5. VPA level on 05/05/17 was 104.7 6. Patient was hypotensive (88/41) and bradycardic this AM, but denied symptoms. Continue to push fluids and monitor vitals. 7. Patient using topical Metrogel to treat skin breakdown on face. 05/07/17 12:07 1. CCM - patient compliant with PO court ordered meds 2. Continues to demonstrate appropriate behavior, attended to hygiene with shower and putting on clean clothes today 3. Bradycardia and hypotension persist 4. Ate < 50% of breakfast 5. Drank at least 700cc of fluid this AM (cranberry juice, OJ, milk and water) - but needs prompting 6. Continue 1:1 Subjective: Met with patient, reviewed chart and d/w staff. Patient has been out of room most of the morning. He is ambulating up & down halls, though has psychomotor retardation and slow gait. He was watching TV this AM and later attended group therapy. Unlike yesterday, he did not participate in group and did not color, but sat in chair near window not at the table with peers. He has very delayed response to questions, but is goal-directed in his answers. He asked MD about discharge and where he would go after hospital. His 1:1 staff today reported that patient was communicative with her, but speech was very slow. He answered many of the staff's questions including where he grew up in [place] and who he had lived with there. It sounds like he lived with foster/host families for many years, and was possibly removed from [facility] custody at young age. He says he has never known his biological FOC. When asked about [place] in [place], patient said his favorite ride was "[employer] Patient appears to have been very forthcoming with 1:1 staff over the past couple of days. His responses provide more insight into patient's childhood as well as his mental state. Objective: Vital Signs Temp Pulse Resp BP Pulse Ox 36.7 C 58 L 16 92/55 L 99 05/06/17 21:27 05/07/17 08:00 05/07/17 08:00 05/07/17 08:00 05/07/17 08:00 Laboratory Results 05/05/17 06:45 05/06/17 05/07/17 05/08/17 05:59 05:59 05:59 Intake Total 1999 960 Balance 1999 960 MSE: Affect: Blunted Mood: "OK" TP: Linear, goal-directed, slowed speech, paucity of speech at times, but clearly demonstrates with 1:1 the ability to be more communicative (not mute) TC: Denies any SI/HI, no apparent AH/VH, no RIS Insight/Judgment: Impaired - Time Spent With Patient Time Spent With Patient: 25" - Pending Discharge Pending Discharge Within 24 Hours: No Pending Discharge Within 48 Hours: No ICD10 Worksheet Patient Problems: Problems Problem Status Onset Intellectual disability Acute Schizoaffective disorder, bipolar type Acute Aggressive behavior Acute Autism spectrum disorder Acute Dehydration Acute
[2017-05-07] MEDS: RISPERIDONE 1 MG ODT TAB SL SCH (18:23)
[2017-05-08] MEDS: LORazepam 1 MG TAB PO SCH ×4 (06:04→21:00)
[2017-05-08] MEDS: DIVALPROEX ER 500 MG TAB PO SCH (08:46)
[2017-05-08] MEDS: FERRO-SEQUELS 65 MG TAB.ER PO SCH (08:47)
[2017-05-08] MEDS ORDERED: LORazepam 2 MG/ML INJ IM PRN (09:00)
--- NOTE | 2017-05-08 11:05 | SOAPPROG ---
SOAP Progress Note Assessment/Plan: Assessment: Schizoaffective Disorder bipolar type versus Bipolar Disorder with psychotic features History of Catatonia Borderline Intellectual Functioning Autism Spectrum Disorder Erythema with plaque/crusting right cheek/face, no drainage Patient was in restraints without PO intake in ER for 3 days for severe agitation, violent and hypersexual behavior and psychosis, then in ICU for IV fluids for dehydration prior to transfer to . Patient was in [facility] in early March 2017 with catatonic symptoms and CK level of 7000 per notes in [facility] system, after transfer from psychiatric hospitalization at [facility]. Patient has a history of being prescribed either Depakote with an antipsychotic (including Risperdal Consta) or Clozapine since 2007, with >5 past psychiatric hospitalizations. Aunt and IMAGINE team report patient has FSIQ=72, past diagnoses of Autism from two specialized psychologist; at baseline is hypo-verbal with apathy but eating and drinking well and able to change clothes and bathe independently. Patient is calm without any episodes of severe agitation over the weekend. Patient had appropriate PO intake this AM but appears tired and sleeping excessively this AM. Plan: Short Term Certification Patient stipulated for court ordered medications Patient on line of sight, assault precautions, inappropriate sexual behavior precautions Continue Depakote ER 1500mg Continue Risperdal SL 1mg QHS; Risperdal 1mg BID PRN severe agitation Court Ordered MED: Zyprexa 5mg IM if refusing PO Risperdal Reduce Ativan 1mg TID for catatonia Court Ordered MED: Ativan 1mg IM if refusing PO Ativan Again reviewed with staff patient needs multiple prompts for fluid intake, push fluids, monitor PO fluid intake, hygiene/showering Discontinue Metrogel, start Clotrimazole 1% cream BID to face, if not improving will re-consult primary care 05/08/17 11:05 Objective: Vital Signs Temp Pulse Resp BP Pulse Ox 36.2 C 60 16 99/54 L 98 05/07/17 22:05 05/08/17 06:24 05/08/17 06:24 05/08/17 06:24 05/08/17 06:24 Laboratory Results 05/05/17 06:45 05/07/17 05/08/17 05/09/17 05:59 05:59 05:59 Intake Total 960 1180 Balance 960 1180 Alert WM, appears tired. Minimal speech, soft voice. Mood 'OK' Affect, preoccupied. Thoughts minimal with 1-2 words. Denies SI or HI. Denies AH or paranoia. Insight poor judgment impaired. Staff report patient ate 75% of breakfast and drank 600cc Gatorade. - Time Spent With Patient Time Spent With Patient: 10 minutes - Pending Discharge Pending Discharge Within 24 Hours: No Pending Discharge Within 48 Hours: No ICD10 Worksheet Patient Problems: Problems Problem Status Onset Intellectual disability Acute Schizoaffective disorder, bipolar type Acute Aggressive behavior Acute Autism spectrum disorder Acute Dehydration Acute
[2017-05-08] MEDS: [UNRECOGNIZED DRUG - OTHER] PO SCH (11:46)
[2017-05-08] MEDS: CLOTRIMAZOLE 1% 15 GM CRTUBE TP SCH ×2 (12:00→21:08)
[2017-05-08] MEDS: RISPERIDONE 1 MG ODT TAB SL SCH (21:00)
[2017-05-09] MEDS: [UNRECOGNIZED DRUG - OTHER] PO SCH (08:46)
[2017-05-09] MEDS: DIVALPROEX ER 500 MG TAB PO SCH (08:47)
[2017-05-09] MEDS: FERRO-SEQUELS 65 MG TAB.ER PO SCH (08:47)
[2017-05-09] MEDS: LORazepam 1 MG TAB PO SCH (08:47)
[2017-05-09] MEDS: CLOTRIMAZOLE 1% 15 GM CRTUBE TP SCH ×2 (08:47→19:04)
[2017-05-09] MEDS ORDERED: LORazepam 1 MG TAB PO SCH (10:04)
[2017-05-09] MEDS ORDERED: risperiDONE 0.5 MG TAB PO PRN (10:05)
--- NOTE | 2017-05-09 10:09 | SOAPPROG ---
SOAP Progress Note Assessment/Plan: Assessment: Schizoaffective Disorder bipolar type versus Bipolar Disorder with psychotic features History of Catatonia Borderline Intellectual Functioning Autism Spectrum Disorder Patient has been eating and drinking well but continues to appear slowed with minimal speech, needs numerous prompts for ADLs. Plan: Short Term Certification Patient stipulated for court ordered medications Patient on line of sight, assault precautions, inappropriate sexual behavior precautions Continue Depakote ER 1500mg Reduce Risperdal SL 0.5mg QHS; Risperdal 0.5mg BID PRN severe agitation Court Ordered MED: Zyprexa IM if refusing PO Risperdal Reduce Ativan 0.5mg TID Court Ordered MED: Ativan IM if refusing PO Ativan Again reviewed with staff patient needs multiple prompts for fluid intake, push fluids, monitor PO fluid intake, hygiene/showering Continue Clotrimazole 1% cream BID to face Start Senna 2 tabs QHS Check UA 05/09/17 10:09 Subjective: CC "Good" "OK" Patient denies pain, stiffness, slowing, or other somatic complaints. Denies SI or HI to this M.D. but endorsed SI to CC this AM. Unable to explain why he is in the hospital. Denies feeling hopeless. Denies paranoia, anxiety, or AH. Objective: Vital Signs Temp Pulse Resp BP Pulse Ox 36.4 C 81 17 101/62 95 05/08/17 16:00 05/08/17 21:26 05/08/17 16:00 05/08/17 21:26 05/08/17 16:00 Laboratory Results 05/05/17 06:45 05/08/17 05/09/17 05/10/17 05:59 05:59 05:59 Intake Total 1180 1720 Output Total 1000 Balance 1180 720 Alert but tired appearing WM. Erythema on face. Speech soft few words. Mild slowing. Mood 'good' Affect flat/restricted No cogwheeling but mild increased tone. Thoughts briefly organized with 1-2 words. Denies SI or HI. No evident paranoia or hallucinations. Oriented to hospital. Limited/poor insight. Staff report patient slept 8 hours overnight. Endorses SI once then later denied SI. Eating meals. Needs prompts for hygiene. 1720 cc fluid over past 24 hours. Caregiver requesting Senna for constipation and screening for UTI. - Time Spent With Patient Time Spent With Patient: 10 minutes - Pending Discharge Pending Discharge Within 24 Hours: No Pending Discharge Within 48 Hours: No ICD10 Worksheet Patient Problems: Problems Problem Status Onset Intellectual disability Acute Schizoaffective disorder, bipolar type Acute Aggressive behavior Acute Autism spectrum disorder Acute Dehydration Acute
[2017-05-09] MEDS: LORazepam 0.5 MG TAB PO SCH ×2 (15:25→19:05)
[2017-05-09] MEDS: SENNOSIDES 1 TAB PO SCH (19:03)
[2017-05-09] MEDS: RISPERIDONE 1 MG ODT TAB SL SCH (19:35)
[2017-05-10] MEDS: LORazepam 0.5 MG TAB PO SCH ×3 (08:19→20:27)
[2017-05-10] MEDS: DIVALPROEX ER 500 MG TAB PO SCH (08:19)
[2017-05-10] MEDS: CLOTRIMAZOLE 1% 15 GM CRTUBE TP SCH ×2 (08:19→20:28)
[2017-05-10] MEDS: FERRO-SEQUELS 65 MG TAB.ER PO SCH (08:19)
[2017-05-10] MEDS: [UNRECOGNIZED DRUG - OTHER] PO SCH (08:47)
--- NOTE | 2017-05-10 10:31 | SOAPPROG ---
SOAP Progress Note Assessment/Plan: Assessment: Schizoaffective Disorder bipolar type versus Bipolar Disorder with psychotic features History of Catatonia Borderline Intellectual Functioning Autism Spectrum Disorder Patient has been eating and drinking well and cooperating with staff with ADLs. Patient made brief inappropriate sexual comments over past 24 hours but has been calm without inappropriate behaviors. Plan: Short Term Certification Patient stipulated for court ordered medications Assault precautions, inappropriate sexual behavior precautions Discontinue line of sight Continue Depakote ER 1500mg Continue Risperdal SL 0.5mg QHS - reduced 05/09/17; Risperdal 0.5mg BID PRN severe agitation Court Ordered MED: Zyprexa IM if refusing PO Risperdal Continue Ativan 0.5mg TID - reduced 05/09/17 Court Ordered MED: Ativan IM if refusing PO Ativan Reviewed with staff patient needs multiple prompts for fluid intake, push fluids , monitor PO fluid intake, hygiene/showering Continue Clotrimazole 1% cream BID to face Reviewed plan with medical POA Aunt Rubina Will allow aunt to assist patient with electric razor with 1:1 nurse supervision 05/10/17 10:33 Subjective: CC "Good" "I'm OK" Patient denies pain, stiffness, or feeling oversedated. No somatic complaints. Denies SI or violent thoughts. Denies paranoia or AH. Apologizes for sexual comments earlier this AM to staff. Reports wanting discharge. Unsure of name of hospital but oriented to month, year, president. Objective: Vital Signs Temp Pulse Resp BP Pulse Ox 36.8 C 67 16 99/56 L 99 05/09/17 21:13 05/09/17 21:13 05/09/17 21:13 05/09/17 21:13 05/09/17 21:13 Laboratory Results 05/05/17 06:45 05/09/17 05/10/17 05/11/17 05:59 05:59 05:59 Intake Total 2568 054 1080 Output Total 1000 700 Balance 720 800 300 Alert WM mild facial erythema. Disheveled with unkempt rodriguez. Speech RRR few words. Mood 'good' affect restricted. Thoughts briefly organized with poverty of detail/content. Denies AH or paranoia. Denies SI or violence. Limited/ poor insight. Questionable judgment. Staff report patient eating and drinking well, cooperative with prompts for changing clothes, bathing. Patient made brief sexual comments to staff yesterday and this AM but no inappropriate behaviors. UA negative for infection - Time Spent With Patient Time Spent With Patient: 10 minutes - Pending Discharge Pending Discharge Within 24 Hours: No Pending Discharge Within 48 Hours: No ICD10 Worksheet Patient Problems: Problems Problem Status Onset Intellectual disability Acute Schizoaffective disorder, bipolar type Acute Aggressive behavior Acute Autism spectrum disorder Acute Dehydration Acute
[2017-05-10] MEDS: RISPERIDONE 1 MG ODT TAB SL SCH (20:25)
[2017-05-10] MEDS: SENNOSIDES 1 TAB PO SCH (20:26)
[2017-05-11] MEDS: FERRO-SEQUELS 65 MG TAB.ER PO SCH (09:25)
[2017-05-11] MEDS: DIVALPROEX ER 500 MG TAB PO SCH (09:26)
[2017-05-11] MEDS: LORazepam 0.5 MG TAB PO SCH ×3 (09:26→20:02)
--- NOTE | 2017-05-11 10:36 | SOAPPROG ---
SOAP Progress Note Assessment/Plan: Assessment: Schizoaffective Disorder bipolar type versus Bipolar Disorder with psychotic features History of Catatonia Borderline Intellectual Functioning Autism Spectrum Disorder Patient has been eating and drinking well and cooperating with staff with ADLs. Patient appears more anxious with reduced sleep and possible paranoia or internal stimuli. Plan: Short Term Certification Patient stipulated for court ordered medications Assault precautions, inappropriate sexual behavior precautions Continue Depakote ER 1500mg Increase Risperdal SL 1mg QHS [address] Ordered MED: Zyprexa IM if refusing PO Risperdal Continue Ativan 0.5mg TID - reduced 05/09/17 Court Ordered MED: Ativan IM if refusing PO Ativan Reviewed with staff patient needs multiple prompts for fluid intake, push fluids , monitor PO fluid intake, hygiene/showering Continue Clotrimazole 1% cream BID to face Monitor behavior, impulse control [place] Ensure Plan to discharge either with aunt or with foster family if stable over next 3- 4 days 05/11/17 10:36 05/11/17 10:37 Subjective: CC "OK" Patient unable to explain thought content, no answer to most questions. Denies pain or feeling agitated or irritable. Denies suicidal or violent thoughts. Denies paranoia or AH. Reports 'want to discharge' but unable to explain how he would obtain food/alf. Agrees to discharge with aunt or foster family when available. Objective: Vital Signs Temp Pulse Resp BP Pulse Ox 36.7 C 54 L 14 95/59 L 97 05/11/17 01:26 05/11/17 01:26 05/11/17 01:26 05/11/17 01:26 05/11/17 01:26 Laboratory Results 05/05/17 06:45 05/10/17 05/11/17 05/12/17 05:59 05:59 05:59 Intake Total 800 1350 Output Total 900 Balance 800 450 Staff report reduced sleep, 4-5 hours disrupted. Patient pacing on unit and appearing more anxious, but no aggression or inappropriate sexual behaviors. Drinking fluids but reduced food intake yesterday. Erythema on face much improved. Alert WM, speech soft few words. Mood 'OK' affect anxious and preoccupied at times. Thoughts brief, denies SI or HI or AH or paranoia. Limited/poor insight questionable judgment. - Time Spent With Patient Time Spent With Patient: 10 minutes - Pending Discharge Pending Discharge Within 24 Hours: No Pending Discharge Within 48 Hours: No ICD10 Worksheet Patient Problems: Problems Problem Status Onset Intellectual disability Acute Schizoaffective disorder, bipolar type Acute Aggressive behavior Acute Autism spectrum disorder Acute Dehydration Acute
[2017-05-11] MEDS: [UNRECOGNIZED DRUG - OTHER] PO SCH (15:33)
[2017-05-11] MEDS: CLOTRIMAZOLE 1% 15 GM CRTUBE TP SCH ×2 (15:33→20:14)
[2017-05-11] MEDS: SENNOSIDES 1 TAB PO SCH (20:02)
[2017-05-11] MEDS: RISPERIDONE 1 MG ODT TAB SL SCH (20:02)
[2017-05-12] MEDS: DIVALPROEX ER 500 MG TAB PO SCH (08:28)
[2017-05-12] MEDS: CLOTRIMAZOLE 1% 15 GM CRTUBE TP SCH ×3 (08:29→19:16)
[2017-05-12] MEDS: [UNRECOGNIZED DRUG - OTHER] PO SCH ×2 (08:29→08:34)
[2017-05-12] MEDS: LORazepam 0.5 MG TAB PO SCH ×3 (08:29→19:15)
[2017-05-12] MEDS: FERRO-SEQUELS 65 MG TAB.ER PO SCH (08:29)
--- NOTE | 2017-05-12 10:25 | SOAPPROG ---
SOAP Progress Note Assessment/Plan: Assessment: Schizoaffective Disorder bipolar type versus Bipolar Disorder with psychotic features History of Catatonia Borderline Intellectual Functioning Autism Spectrum Disorder Patient has been eating and drinking well and cooperating with staff with ADLs. Patient appears calm with limited speech. Plan: Short Term Certification Patient stipulated for court ordered medications Assault precautions, inappropriate sexual behavior precautions Continue Depakote ER 1500mg Continue Risperdal SL 1mg QHS [address] Ordered MED: Zyprexa IM if refusing PO Risperdal Continue Ativan 0.5mg TID [address] Ordered MED: Ativan IM if refusing PO Ativan Reviewed with staff patient needs multiple prompts for fluid intake, push fluids , monitor PO fluid intake, hygiene/showering Continue Clotrimazole 1% cream BID to face Monitor behavior, impulse control Plan to discharge either with aunt or with foster family if stable over next 2- 3 days 05/12/17 10:23 Subjective: CC: "Not much" "Pretty good" Patient denies pain, constipation, stiffness or weakness. Denies mood swings or agitation. Denies paranoia or AH. Denies violent or suicidal thoughts. Reports wanting to discharge home with aunt. Objective: Vital Signs Temp Pulse Resp BP Pulse Ox 36.2 C 73 14 98/60 L 96 05/12/17 06:35 05/12/17 06:35 05/12/17 06:35 05/12/17 06:35 05/12/17 06:35 Laboratory Results 05/05/17 06:45 05/11/17 05/12/17 05/13/17 05:59 05:59 05:59 Intake Total 1350 1400 Output Total 900 300 Balance 450 1100 Alert WM, ambulatory without focal weakness or tremors. Speech soft, few words. Mood 'pretty good.' Affect restricted. Thoughts organized. Denies SI or HI or AH or paranoia. Low vocabulary. Limited/poor insight, questionable judgment. Staff report patient napped during day yesterday, slept 4 hours at night, cooperative with care givers, ate entire breakfast this AM. - Time Spent With Patient Time Spent With Patient: 10 minutes - Pending Discharge Pending Discharge Within 24 Hours: No Pending Discharge Within 48 Hours: No ICD10 Worksheet Patient Problems: Problems Problem Status Onset Intellectual disability Acute Schizoaffective disorder, bipolar type Acute Aggressive behavior Acute Autism spectrum disorder Acute Dehydration Acute
[2017-05-12] MEDS: SENNOSIDES 1 TAB PO SCH (19:15)
[2017-05-12] MEDS: RISPERIDONE 1 MG ODT TAB SL SCH (19:15)
[2017-05-13] MEDS: [UNRECOGNIZED DRUG - OTHER] PO SCH (08:26)
[2017-05-13] MEDS: LORazepam 0.5 MG TAB PO SCH ×3 (08:26→20:38)
[2017-05-13] MEDS: FERRO-SEQUELS 65 MG TAB.ER PO SCH (08:26)
[2017-05-13] MEDS: DIVALPROEX ER 500 MG TAB PO SCH (08:26)
[2017-05-13] MEDS: CLOTRIMAZOLE 1% 15 GM CRTUBE TP SCH ×2 (11:55→20:39)
--- NOTE | 2017-05-13 12:54 | SOAPPROG ---
SOAP Progress Note Assessment/Plan: Assessment/Plan: Per Dr. Wu's notes: Assessment: Schizoaffective Disorder bipolar type versus Bipolar Disorder with psychotic features History of Catatonia Borderline Intellectual Functioning Autism Spectrum Disorder Patient has been eating and drinking well and cooperating with staff with ADLs. Patient appears calm with limited speech. Plan: Short Term Certification Patient stipulated for court ordered medications Assault precautions, inappropriate sexual behavior precautions Continue Depakote ER 1500mg Continue Risperdal SL 1mg QHS [address] Ordered MED: Zyprexa IM if refusing PO Risperdal Continue Ativan 0.5mg TID [address] Ordered MED: Ativan IM if refusing PO Ativan Reviewed with staff patient needs multiple prompts for fluid intake, push fluids , monitor PO fluid intake, hygiene/showering Continue Clotrimazole 1% cream BID to face Monitor behavior, impulse control Plan to discharge either with aunt or with foster family if stable over next 2- 3 days 05/13/17 12:46 1. Patient continues to demonstrate stable condition and appropriate behaviors 2. Compliant with court ordered med regimen - no changes 3. Adequate PO intake 4. Showering and performing ADL's adequately Subjective: Met with patient, reviewed chart and d/w staff. Patient attended art therapy group with minimal participation. He presents with more fluent speech and less response latency. However, he still provides minimal responses, usually only several words, to any questions. He did approach MD and request towels to take a shower. He is cooperative with staff and appropriate with peers, but keeps to himself most of the day. Facial erythema seems much improved with topical treatment. He does have severe acne and would likely benefit from PO antibiotic , but there are risks of adverse mood effects. Would recommend d/w PCP and outpatient psych MD. Polina GALLAGHER, spoke to [facility], Rubina, by phone. Rubina states she has narrowed search for placement down to a single home. She is hoping that the host family will come visit [place] on Monday. Objective: Vital Signs Temp Pulse Resp BP Pulse Ox 36.3 C 44 L 14 97/51 L 98 05/13/17 06:42 05/13/17 06:42 05/13/17 06:42 05/13/17 06:42 05/13/17 06:42 Laboratory Results 05/05/17 06:45 05/12/17 05/13/17 05/14/17 05:59 05:59 05:59 Intake Total 1400 500 750 Output Total 300 0 Balance 1100 500 750 MSE: Affect: Constricted Mood: "OK" TP: Linear, goal-directed, more fluent speech TC: Denies any SI/HI, no AH/VH, no paranoia or RIS Insight/Judgment: Impaired - Time Spent With Patient Time Spent With Patient: 20" - Pending Discharge Pending Discharge Within 24 Hours: No Pending Discharge Within 48 Hours: No ICD10 Worksheet Patient Problems: Problems Problem Status Onset Intellectual disability Acute Schizoaffective disorder, bipolar type Acute Aggressive behavior Acute Autism spectrum disorder Acute Dehydration Acute
[2017-05-13] MEDS: SENNOSIDES 1 TAB PO SCH (20:38)
[2017-05-13] MEDS: RISPERIDONE 1 MG ODT TAB SL SCH (20:39)
[2017-05-14] MEDS: LORazepam 0.5 MG TAB PO SCH ×3 (09:08→21:21)
[2017-05-14] MEDS: FERRO-SEQUELS 65 MG TAB.ER PO SCH (09:08)
[2017-05-14] MEDS: CLOTRIMAZOLE 1% 15 GM CRTUBE TP SCH ×2 (09:08→21:22)
[2017-05-14] MEDS: DIVALPROEX ER 500 MG TAB PO SCH (09:08)
[2017-05-14] MEDS: [UNRECOGNIZED DRUG - OTHER] PO SCH (09:08)
--- NOTE | 2017-05-14 14:05 | SOAPPROG ---
SOAP Progress Note Assessment/Plan: Assessment/Plan: Per Dr. Wu's notes: Assessment: Schizoaffective Disorder bipolar type versus Bipolar Disorder with psychotic features History of Catatonia Borderline Intellectual Functioning Autism Spectrum Disorder Patient has been eating and drinking well and cooperating with staff with ADLs. Patient appears calm with limited speech. Plan: Short Term Certification Patient stipulated for court ordered medications Assault precautions, inappropriate sexual behavior precautions Continue Depakote ER 1500mg Continue Risperdal SL 1mg QHS [address] Ordered MED: Zyprexa IM if refusing PO Risperdal Continue Ativan 0.5mg TID [address] Ordered MED: Ativan IM if refusing PO Ativan Reviewed with staff patient needs multiple prompts for fluid intake, push fluids , monitor PO fluid intake, hygiene/showering Continue Clotrimazole 1% cream BID to face Monitor behavior, impulse control Plan to discharge either with aunt or with foster family if stable over next 2- 3 days 05/13/17 12:46 1. Patient continues to demonstrate stable condition and appropriate behaviors 2. Compliant with court ordered med regimen - no changes 3. Adequate PO intake 4. Showering and performing ADL's adequately 05/14/17 14:02 1. CCM - stable 2. Able to perform ADL's with prompts Subjective: Met with patient, reviewed chart and d/w staff. Patient attended art therapy group this AM and participated appropriately. The group cut out paper hearts for [employer]. MD spoke to patient after he'd taped his hearts to his bedroom door. He was smiling and obviously proud of his work. MD commented about his artwork, and patient said, "thank you" and showed most affect that MD has seen during this admission. Staff report that patient still needs frequent prompts to complete tasks, such as gathering clothes and putting them in laundry , finishing meals and maintaining fluid intake. Objective: Vital Signs Temp Pulse Resp BP Pulse Ox 36.4 C 62 14 102/63 98 05/14/17 06:42 05/14/17 06:42 05/14/17 06:42 05/14/17 06:42 05/14/17 06:42 Laboratory Results 05/05/17 06:45 05/13/17 05/14/17 05/15/17 05:59 05:59 05:59 Intake Total 500 1630 Output Total 0 Balance 500 1630 MSE: Affect: Euthymic, smiling when talking about artwork Mood: "Fine" TP: Goal -directed, paucity of speech TC: No SI/HI, no AH/VH Insight/Judgment: Poor - Time Spent With Patient Time Spent With Patient: 20" - Pending Discharge Pending Discharge Within 24 Hours: No Pending Discharge Within 48 Hours: No ICD10 Worksheet Patient Problems: Problems Problem Status Onset Intellectual disability Acute Schizoaffective disorder, bipolar type Acute Aggressive behavior Acute Autism spectrum disorder Acute Dehydration Acute
[2017-05-14] MEDS: SENNOSIDES 1 TAB PO SCH (21:21)
[2017-05-14] MEDS: RISPERIDONE 1 MG ODT TAB SL SCH (21:22)
[2017-05-15] MEDS: DIVALPROEX ER 500 MG TAB PO SCH (08:16)
[2017-05-15] MEDS: FERRO-SEQUELS 65 MG TAB.ER PO SCH (08:16)
[2017-05-15] MEDS: [UNRECOGNIZED DRUG - OTHER] PO SCH (08:17)
[2017-05-15] MEDS: LORazepam 0.5 MG TAB PO SCH ×3 (08:17→21:19)
[2017-05-15] MEDS ORDERED: LORazepam 2 MG/ML INJ IM PRN (08:52)
--- NOTE | 2017-05-15 08:56 | SOAPPROG ---
SOAP Progress Note Assessment/Plan: Assessment: Schizoaffective Disorder bipolar type versus Bipolar Disorder with psychotic features History of Catatonia Borderline Intellectual Functioning Autism Spectrum Disorder Patient has been eating and drinking well and cooperating with staff with ADLs. Patient appears calm with limited speech. Plan: Short Term Certification Patient stipulated for court ordered medications Assault precautions, inappropriate sexual behavior precautions Continue Depakote ER 1500mg Continue Risperdal SL [address] Ordered MED: Zyprexa IM if refusing PO Risperdal Reduce Ativan 0.5mg BID Court Ordered MED: Ativan IM if refusing PO Ativan Reviewed with staff patient needs multiple prompts for fluid intake, push fluids , monitor PO fluid intake, hygiene/showering Discontinue Clotrimazole 1% cream Monitor behavior, impulse control Plan to discharge either with aunt for brief respite once foster family placement found 05/15/17 08:55 Subjective: CC: "OK" "Pretty Good" Patient denies any new problems. Denies pain, anxiety, paranoia, AH, mood swings or irritability. Agreeable to continue to take medication and work with aunt and [facility] team toward discharge. Reports sleeping well. Objective: Vital Signs Temp Pulse Resp BP Pulse Ox 36.4 C 62 14 102/63 98 05/14/17 06:42 05/14/17 06:42 05/14/17 06:42 05/14/17 06:42 05/14/17 06:42 Laboratory Results 05/05/17 06:45 05/14/17 05/15/17 05/16/17 05:59 05:59 05:59 Intake Total 1630 1175 Balance 1630 1175 Alert WM, ambulatory with mild ataxia. Speech soft with few words regular rate. Denies SI or HI. Mood 'pretty good' affect restricted. Thoughts briefly organized but only a few words. Impaired/poor insight. Questionable judgment. Staff report patient cooperative with medication and supportive care. - Time Spent With Patient Time Spent With Patient: 10 minutes - Pending Discharge Pending Discharge Within 24 Hours: No Pending Discharge Within 48 Hours: No ICD10 Worksheet Patient Problems: Problems Problem Status Onset Intellectual disability Acute Schizoaffective disorder, bipolar type Acute Aggressive behavior Acute Autism spectrum disorder Acute Dehydration Acute
[2017-05-15] MEDS: SENNOSIDES 1 TAB PO SCH (21:19)
[2017-05-15] MEDS: RISPERIDONE 1 MG ODT TAB SL SCH (21:24)
[2017-05-16] MEDS: LORazepam 0.5 MG TAB PO SCH ×3 (09:10→20:45)
[2017-05-16] MEDS: DIVALPROEX ER 500 MG TAB PO SCH (09:10)
[2017-05-16] MEDS: FERRO-SEQUELS 65 MG TAB.ER PO SCH (09:10)
[2017-05-16] MEDS: [UNRECOGNIZED DRUG - OTHER] PO SCH (09:11)
--- NOTE | 2017-05-16 10:39 | SOAPPROG ---
SOAP Progress Note Assessment/Plan: Assessment: Schizoaffective Disorder bipolar type versus Bipolar Disorder with psychotic features History of Catatonia Borderline Intellectual Functioning Autism Spectrum Disorder Patient has been eating and drinking well and cooperating with staff with ADLs. Patient appears calm with limited speech. Plan: Short Term Certification Patient stipulated for court ordered medications Assault precautions, inappropriate sexual behavior precautions Continue Depakote ER 1500mg Continue Risperdal SL [address] Ordered MED: Zyprexa IM if refusing PO Risperdal Continue Ativan 0.5mg BID Court Ordered MED: Ativan IM if refusing PO Ativan Reviewed with staff patient needs multiple prompts for fluid intake, push fluids , monitor PO fluid intake, hygiene/showering Monitor behavior, impulse control Awaiting placement with either with aunt or foster family placement Requested nurses shred prescriptions printed yesterday 05/16/17 10:40 Subjective: CC: 'OK, good' Patient denies any pain, constipation, weakness, stiffness. Denies thoughts of violence or self harm. Denies feeling anxious or irritable. Agrees to discharge with aunt or with a foster family. Objective: Vital Signs Temp Pulse Resp BP Pulse Ox 36.4 C 62 14 102/63 98 05/14/17 06:42 05/14/17 06:42 05/14/17 06:42 05/14/17 06:42 05/14/17 06:42 Laboratory Results 05/05/17 06:45 05/15/17 05/16/17 05/17/17 05:59 05:59 05:59 Intake Total 1175 1000 Balance 1175 1000 Alert WM, ambulatory. Mildly unsteady. Speech soft few words. Mood 'OK, good ' Affect restricted. Thoughts brief only a few words. Denies paranoia or AH. Denies SI or HI. Oriented to hospital, month, year. Insight poor. Staff report patient slept 5 hours, then went back to bed, slept 2 hours this AM and ate breakfast. Patient and a female patient made sexual statements yesterday in afternoon, both placed on 10 ft restriction from each other. Staff report patient compliant with medications and calm and attending meals and some groups. Reportedly aunt will not allow patient to return home for respite care until final/permanent foster family found. - Time Spent With Patient Time Spent With Patient: 10 minutes - Pending Discharge Pending Discharge Within 24 Hours: No Pending Discharge Within 48 Hours: No ICD10 Worksheet Patient Problems: Problems Problem Status Onset Intellectual disability Acute Schizoaffective disorder, bipolar type Acute Aggressive behavior Acute Autism spectrum disorder Acute Dehydration Acute
[2017-05-16] MEDS ORDERED: LORazepam 2 MG/ML INJ IM PRN (10:54)
[2017-05-16] MEDS: SENNOSIDES 1 TAB PO SCH (20:45)
[2017-05-16] MEDS ORDERED: RISPERIDONE ODT 0.5 MG TAB PO SCH (21:00)
[2017-05-17] MEDS: DIVALPROEX ER 500 MG TAB PO SCH (08:17)
[2017-05-17] MEDS: LORazepam 0.5 MG TAB PO SCH ×5 (08:17→13:08)
[2017-05-17] MEDS: FERRO-SEQUELS 65 MG TAB.ER PO SCH (08:17)
[2017-05-17] MEDS: [UNRECOGNIZED DRUG - OTHER] PO SCH (08:18)
--- NOTE | 2017-05-17 08:56 | SOAPPROG ---
SOAP Progress Note Assessment/Plan: Assessment: Schizoaffective Disorder bipolar type versus Bipolar Disorder with psychotic features History of Catatonia Borderline Intellectual Functioning Autism Spectrum Disorder Patient appears calm with limited speech. Patient was in ER 05/16/17 for dehydration and lethargy Plan: Short Term Certification Patient stipulated for court ordered medications Assault precautions, inappropriate sexual behavior precautions Line of sight during meals to provide 1:1 prompts for PO intake Vitals BID Continue Depakote ER 1500mg Continue Risperdal SL 0.5mg QHS (reduced 05/16/17) Continue Ativan 0.5mg TID before meals (increased 05/16/17) Supportive care Aunt/Guardian exploring foster family placement if patient eating/drinking consistently and calm with caregivers 05/17/17 08:57 Subjective: CC: "Good" Patient is mostly non-verbal. Denies mood swings, anxiety, paranoia, AH, or somatic complaints. Agrees to try to eat/drink more and take medication. Unable to explain why he is in the hospital. Objective: Vital Signs Temp Pulse Resp BP Pulse Ox 36.4 C 45 L 14 97/83 H 98 05/14/17 06:42 05/16/17 11:30 05/16/17 10:30 05/16/17 10:30 05/16/17 10:30 Laboratory Results 05/05/17 06:45 05/16/17 05/17/17 05/18/17 05:59 05:59 05:59 Intake Total 1000 50 Balance 1000 50 Alert WM with acne. Speech few words, soft voice. Mood 'good' affect flat. Disorganized behavior at times on unit. Thoughts brief with minimal content. Denies SI or HI or paranoia or AH. Memory poor. Insight poor. Judgment impaired. Patient went to ER yesterday for bradycardia and lethargy and borderline hypotension. EGK NSR wtih HR 58, Qtc 389. Blood work consistent with dehydration: Na 147; Hgb 19.7. CK 98. Patient received IVF 2L NS and returned to unit. Staff report patient last PM made a sexual statement and initially spit out Ativan, later took when told it was court ordered. This AM ate 50% breakfast so far. - Time Spent With Patient Time Spent With Patient: 10 minutes - Pending Discharge Pending Discharge Within 24 Hours: No Pending Discharge Within 48 Hours: No ICD10 Worksheet Patient Problems: Problems Problem Status Onset Intellectual disability Acute Schizoaffective disorder, bipolar type Acute Aggressive behavior Acute Autism spectrum disorder Acute Dehydration Acute
[2017-05-17] MEDS ORDERED: LORazepam 0.5 MG TAB PO SCH (13:19)
[2017-05-17] MEDS ORDERED: LORazepam 2 MG/ML INJ IM PRN (13:19)
[2017-05-17] MEDS: LORazepam 1 MG TAB PO SCH (16:36)
[2017-05-17] MEDS: SENNOSIDES 1 TAB PO SCH (21:29)
[2017-05-18] MEDS ORDERED: OLANZapine DISINTEGR 5 MG TAB PO PRN (08:04)
[2017-05-18] MEDS: FERRO-SEQUELS 65 MG TAB.ER PO SCH (08:42)
[2017-05-18] MEDS: DIVALPROEX ER 500 MG TAB PO SCH (08:42)
[2017-05-18] MEDS: LORazepam 1 MG TAB PO SCH ×3 (08:42→18:26)
[2017-05-18] MEDS: [UNRECOGNIZED DRUG - OTHER] PO SCH (08:52)
--- NOTE | 2017-05-18 09:01 | SOAPPROG ---
SOAP Progress Note Assessment/Plan: Assessment: Bipolar Disorder with psychotic and catatonic features Borderline Intellectual Functioning Autism Spectrum Disorder Patient appears calm with limited speech. Patient having episodic mutism and negativity alternating with brief hyperactivity and agitation. Patient continues to need numerous prompts for ADLS and PO intake Patient was in ER 05/16/17 for dehydration and lethargy and mutism after Ativan dose reduced. Plan: Short Term Certification; will discuss voluntary treatment if having improved insight and organized behavior Patient stipulated for court ordered medications Assault precautions, inappropriate sexual behavior precautions Line of sight during meals to provide 1:1 prompts for PO intake Vitals BID Depakote level, BMP, CK level pending Continue Depakote ER 1500mg Continue Ativan 1mg TID before meals, if refused Ativan 1mg IM Discontinue Risperdal Olanzapine 5mg PO/IM PRN severe agitation Supportive care Aunt/Guardian exploring foster family placement if patient eating/drinking consistently and calm with caregivers 05/18/17 09:03 Subjective: CC "OK" "Great" "I need to meditate with God" Patient is mostly non-verbal with questions. Denies mood swings or agitation or violent thoughts or severe anxiety. Denies somatic complaints. Unable to explain why he in the hospital. Objective: Vital Signs Temp Pulse Resp BP Pulse Ox 36.7 C 60 18 99/57 L 98 05/17/17 20:00 05/17/17 20:00 05/17/17 20:00 05/17/17 20:00 05/17/17 20:00 05/17/17 05/18/17 05/19/17 05:59 05:59 05:59 Intake Total 50 990 Balance 50 990 Alert WM with acne. Speech soft few words, mute to most questions. Ambulatory without weakness or tremors. Eats and drinks with prompts. Denies SI or HI or AH. Mood 'good' affect blunted. Thoughts disorganized with minimal speech/ content. No insight, impaired judgment. Staff report yesterday patient ate 75% breakfast, 0% lunch, 50% dinner, 990cc fluid; was quiet in bed most the time, other times pacing halls with odd behaviors. Slept 6.5 hours overnight but napped yesterday during the day. This AM ate 1/3 breakfast with 500cc fluid intake with numerous prompts. - Pending Discharge Pending Discharge Within 24 Hours: No Pending Discharge Within 48 Hours: No ICD10 Worksheet Patient Problems: Problems Problem Status Onset Autism spectrum disorder Acute Bipolar I disorder with catatonia Acute Intellectual disability Acute Aggressive behavior Acute Dehydration Acute
[2017-05-18 09:31] LABS: CREATINE KINASE 118 IU/L (0-224)
[2017-05-18] MEDS: CLOTRIMAZOLE 1% 15 GM CRTUBE TP SCH (18:26)
[2017-05-18] MEDS: SENNOSIDES 1 TAB PO SCH (18:27)
[2017-05-19] MEDS: LORazepam 1 MG TAB PO SCH ×4 (08:09→20:20)
[2017-05-19] MEDS: DIVALPROEX ER 500 MG TAB PO SCH (08:09)
[2017-05-19] MEDS ORDERED: LORazepam 2 MG/ML INJ IM PRN ×2 (08:50→10:30)
--- NOTE | 2017-05-19 08:54 | SOAPPROG ---
SOAP Progress Note Assessment/Plan: Assessment: Bipolar Disorder with psychotic and catatonic features Borderline Intellectual Functioning Autism Spectrum Disorder Patient was in ER 05/16/17 for dehydration and lethargy and mutism after Ativan dose reduced. Patient having negativity/mutism alternating with excited agitation and bizarre/ impulsive behavior. Plan: Short Term Certification; will discuss voluntary treatment if having improved insight and organized behavior Patient stipulated for court ordered medications Assault precautions, inappropriate sexual behavior precautions Line of sight during meals to provide 1:1 prompts for PO intake Vitals BID Check AM BMP, CK Continue Depakote ER 1500mg Increase Ativan 1mg four times a day, if refused Ativan 1mg IM Olanzapine 5mg PO/IM PRN severe agitation Supportive care Aunt/Guardian exploring foster family placement if patient eating/drinking consistently and calm with caregivers OT evaluation to assist with hygiene 05/19/17 08:54 Subjective: CC: "Thanks Man" "Talking to God" Patient mostly mute and no answer to most questions. Unable to explain thoughts or mood. Objective: Vital Signs Temp Pulse Resp BP Pulse Ox 36.4 C 65 17 103/73 95 05/18/17 20:00 05/18/17 20:00 05/18/17 20:00 05/18/17 20:00 05/18/17 20:00 Laboratory Results 05/18/17 05:50 05/18/17 05/19/17 05/20/17 05:59 05:59 05:59 Intake Total 990 1770 Balance 990 1770 Alert WM with acne. Running in hallway, hugging people, yelling non-sensical, later standing and mumbling statements, later praying and talking about God. No answers to most questions. No insight, impaired judgment, unable to assess thought content further. Staff report patient had 1770 cc fluid yesterday, ate 25% breakfast, 100% lunch , 25% dinner plus snacks. This AM patient agitated, yelling, slapped wall, intrusive, threw muffin and gatorade bottle, agitated and non-sensical. Got PRN Zydis 5mg along with 1mg Ativan PO. Afterward more calm, eating and drinking with multiple prompts, and able to drink 400cc of Gatorade - Time Spent With Patient Time Spent With Patient: 20 minutes - Pending Discharge Pending Discharge Within 24 Hours: No Pending Discharge Within 48 Hours: No ICD10 Worksheet Patient Problems: Problems Problem Status Onset Autism spectrum disorder Acute Bipolar I disorder with catatonia Acute Intellectual disability Acute Aggressive behavior Acute Dehydration Acute
[2017-05-19] MEDS ORDERED: LORazepam 1 MG TAB PO SCH (12:00)
[2017-05-19] MEDS: CLOTRIMAZOLE 1% 15 GM CRTUBE TP SCH ×2 (12:25→20:20)
[2017-05-19] MEDS ORDERED: OLANZapine 2.5 MG TAB PO PRN (12:25)
[2017-05-19] MEDS ORDERED: OLANZapine 10 MG/2 ML VIAL IM PRN (12:26)
--- NOTE | 2017-05-19 12:45 | GPROG ---
[f rep st] BEHAVIORAL HEALTH INTERIM SUMMARY Corrected report INTERIM SUMMARY IDENTIFICATION: This is a 31-year-old single white male with a history of borderline intellectual functioning and autism as well as severe mental illness , who was recently living with his aunt Rubina Herrera, who is his guardian for medical decision making. DATE OF ADMISSION: The patient was admitted on 04/28/2017 for grave disability , as a transfer from [facility]. ADMITTING DIAGNOSIS: 1. Schizoaffective disorder, bipolar type with catatonic features. 2. History of autism spectrum disorder. 3. History of intellectual disability. BRIEF PSYCHIATRIC HISTORY: The patient apparently has a history of learning disabilities in childhood as well as reduced verbal skills and impaired social skills and reportedly received learning disability classes but was later able to graduate from high school in a special education school. The patient was raised by his parents. As an adult, the patient developed symptoms of depression , anxiety, insomnia and manic and psychotic symptoms. He apparently was living with his parents in [place] and had multiple trials of multiple psychiatric medications out there including past trials of antidepressants, lithium, Ativan , multiple antipsychotics - including Risperdal Consta - and Depakote as well. The patient apparently had been on Clozaril for several years, but his parents . The patient then moved to [place] to stay with his aunt in early 2016, on Clozaril, possibly 400 mg a day. The patient was eventually placed in multiple consecutive foster family placements throughout 2016. He then returned to live with his aunt in the fall of 2016, and was in treatment at the [facility] program here in [facility] with Dr. Melendez. There, the patient's Clozaril apparently was reduced from 400 mg to 300 mg as the patient was having problems with sedation and refusing blood draws and both the aunt and outpatient team were unsure of the patients underlying mental illness. After the Clozaril was tapered, the patient had a psychiatric hospitalization at [facility]. There, the patient apparently was psychotic and agitated and was then transferred to [facility], was diagnosed with catatonia and had a rhabdomyolysis with a CK near 6000. The patient was treated there with IV fluids and benzodiazepines and eventually returned home with his aunt, but was having manic symptoms of severe insomnia, psychomotor agitation, irritability, along with paranoia, bizarre statements, poor self-care , poor p.o. intake, and then was in the emergency department at [facility] Emergency Department on approximately 04/20/17. The patient was at [facility] ICU from 04/20 to 04/28/2017, prior to transfer to the psychiatric hospital. The patient apparently in the emergency room for 3 days and was extremely agitated, not able to eat or drink, was in restraints, received multiple IM and IV medications to calm down. He was then treated for dehydration with IV fluids on the intensive care unit. The patient was given 1 dose of Clozaril and then a few doses of Zyprexa prior to transfer over to the unit. HOSPITAL COURSE: The patient was admitted. He initially appeared to be a thin , white male with acne. He had disorganized behavior, poor attention, was hypo- verbal with soft speech. He was ambulatory without focal weakness. His thoughts were disorganized. He was unable to explain why he was in the hospital. He was oriented to month and year. He initially had extreme hypersexual behavior, including making numerous lewd and sexual statements to staff and repeatedly masturbating in front of staff and attempting to masturbate in front other patients. The patient had waxing and waning mutism, waxing and waning lethargy with marginal PO intake. The patient needed numerous prompts and redirections to eat and drink. The patient was started back on Depakote, which the patient had previously taken for a bipolar disorder. He was also initially given Zyprexa. However, the patient was quite agitated and hyperkinetic and intrusive and having hypersexual and disruptive behaviors during the weekend of 04/29 and 04/30. He did receive Haldol with the Depakote. Then starting the week of 04/24 was started on a combination of Depakote, Ativan and Risperdal. The patient had waxing and waning catatonic symptoms, waxing and waning agitation and hypersexual statements, bizarre behavior, disorganization. The patient had waxing and waning p.o. intake, despite multiple dose adjustments of Risperdal and Ativan and extensive support from the inpatient unit staff. The patient did require an emergency room visit for IV fluids for dehydration on Monday, 05/16 concurrent with worsening lethargy and mutism. His Depakote levels were near 100 on 1500mg daily. Due to continued episodic catatonic symptoms, the Risperdal was discontinued, Ativan increased back to 1 mg three times daily and then 1 mg 4 times a day for catatonia. Today 05/19/16 patient appeared impulsive with severe agitation and hypersexual behavior early in the AM and was given Zydis 5mg along with his AM medications of Depakote 1500mg and Ativan 1mg. He ate breakfast well with multiple prompts then slept 3-4 hours and had mild resting tremor with minimal speech and minimal PO intake at lunch time, so the PRN Zyprexa dose was reduced to 2.5mg. LEGAL: He was placed on a short-term certification and court-ordered medications during the hospitalization. CONSULTATIONS: The patient was seen by Dr. Jerome for an ECT consultation on 05/03/2017. He does not have any procedures, but did have an emergency room visit on 05/16 for dehydration and received 2 liters of IV fluids. The patient had a Neurology consult with Head CT and Brain MRI at [facility] prior to admission to the inpatient behavioral health unit on 04/28/17. LABORATORY STUDIES: On 05/18/2017, his sodium was 146, potassium 4.0, creatinine 0.7, glucose 65, calcium 9.0. CK level 118. On 05/05/2017, he had a total protein of 5.7, albumin of 3.4, AST 18, ALT 24. On 05/09/2017, he had a urinalysis that was normal except for trace ketones. On 05/18/2017, he had a valproic acid of 104. This was on 1500 mg of Depakote extended release. Other blood tests included an HIV test that was negative. RPR on 04/27/2017 was nonreactive. BURAK test on 05/07/2017 was nonreactive. On 04/20/2017, he had TSH of 0.7 MENTAL STATUS EXAMINATION: The patient is ambulatory white male with acne and seborrheic dermatitis scaling on his face. He appears thin. He has no focal weakness. He has some resistance when trying to examine for rigidity. The patient is alternatively sitting quietly and then pacing the hallways quickly. His speech is soft and muffled with few words. He denies thoughts to hurt himself or others. His thoughts are disorganized. He is oriented to hospital, president, month and year. He denies hallucinations. His insight is poor. His judgment is impaired. VITALS: The patient's vital signs this morning, blood pressure 103/73, heart rate 65, respiratory rate 17, pulse ox 95% on room air, temperature is afebrile , and then over the past 24 hours the patient had 1770 cc p.o. fluid intake following extensive support and prompting. ASSESSMENT: 1. Bipolar disorder with psychotic and catatonic features. 2. Autism spectrum disorder. 3. Borderline intellectual functioning with a history of full-scale IQ of 72. 4. Acne and seborrhea dermatitis PLAN: 1. The patient is on a short-term certification with court-ordered medications. 2. The patient is currently on Ativan 1 mg p.o. 4 times a day for catatonia. 3. The patient has Zyprexa 2.5 mg p.r.n. for severe agitation with an IM olanzapine 2.5 mg injection if refused, only for severe agitation. 4. The patient continues on close monitoring for intake and output due to risk of dehydration with catatonia. 5. The patient is getting 1-on-1 supervision with meals 3 times a day to receive numerous prompts for eating and drinking. 6. We will recheck a BMP and CK tomorrow morning to rule out dehydration or rhabdomyolysis. 7. The patient is given clotrimazole cream to his face for seborrhea dermatitis. The patient may benefit from an oral antibiotic for acne, but we will approach this at a later time with his medical power of civil rights attorney who is his aunt, Rubina Herrera, phone number [phone]. 8. The patient is on inappropriate sexual behavior precautions level 2 on the unit as well as assault precautions on the unit. 9. The patient is getting vital signs twice daily to monitor for hypotension as well as weights once a week. 10. The patient was ordered an Occupational Therapy consult that is pending to provide assistance in clarifying mechanisms to assist the patient in washing his face and showering daily as he has had poor hygiene and impaired activities of daily living. 11. The patient continues on Depakote extended release 1500 mg p.o. daily for bipolar disorder. 12. The patient's aunt reports that the patient will not be allowed to live in her home due to problems with his behavior in her home in the past causing conflict with her . The patient has a case hardener who is attempting to find foster family placement for the patient. 13. Discussed with aunt and case management team that patient may benefit from another trial of Clozapine if not improving over the next few days. Ordered baseline CBC with differential due to risks of this medication. Discussed with aunt and case management team that patient may need emergency ECT if deteriorating further. /[id number]/MODL Correct worktype, 05/19/17, mary kate SNYDER
[2017-05-19] MEDS: SENNOSIDES 1 TAB PO SCH (20:20)
[2017-05-20] MEDS: LORazepam 1 MG TAB PO SCH ×4 (05:58→18:49)
[2017-05-20] MEDS: CLOTRIMAZOLE 1% 15 GM CRTUBE TP SCH ×2 (08:35→18:56)
[2017-05-20] MEDS: DIVALPROEX ER 500 MG TAB PO SCH (08:35)
--- NOTE | 2017-05-20 14:06 | SOAPPROG ---
SOAP Progress Note Assessment/Plan: Assessment/Plan: Per Dr. Wu's notes: 20 minute phone conference with manager respiratory care Bjorn, aunt Rubina, and case management team (hospice case manager Alisha [place] nurse). Discussed assessment and plan. Discussed that myself with Dr. Jerome could petition the court for emergency ECT if patient deteriorates and needs medical hospitalization for dehydration. Discussed possibly retrying Clozapine if patient not clearly improved over next 2-3 days. Added CBC with differential to AM blood draw tomorrow. Assessment/Plan: Assessment: Bipolar Disorder with psychotic and catatonic features Borderline Intellectual Functioning Autism Spectrum Disorder Patient was in ER 05/16/17 for dehydration and lethargy and mutism after Ativan dose reduced. Patient having negativity/mutism alternating with excited agitation and bizarre/ impulsive behavior. Plan: Short Term Certification; will discuss voluntary treatment if having improved insight and organized behavior Patient stipulated for court ordered medications Assault precautions, inappropriate sexual behavior precautions Line of sight during meals to provide 1:1 prompts for PO intake Vitals BID Check AM BMP, CK Continue Depakote ER 1500mg Increase Ativan 1mg four times a day, if refused Ativan 1mg IM Olanzapine 5mg PO/IM PRN severe agitation Supportive care Aunt/Guardian exploring foster family placement if patient eating/drinking consistently and calm with caregivers OT evaluation to assist with hygiene 05/20/17 14:02 1. Staff unable to draw blood for BMP, CBC. Patient has been eating and drinking more appropriately. He had 1,000cc of fluid this AM, and ate 50% of breakfast per staff. 2. Patient took shower and washed his hair. He performed ADLs today with less prompting. He applied clotrimazole himself without any prompting. 3. VS are stable. VV=115/57, HR=54 4. Continues to await placement. Subjective: Met with patient, reviewed chart and d/w staff. Patient is restricted from contact with female peer. So far, he has been cooperative with behavior plan and staff directions. He took meds and has been eating and drinking and performing ADLs with minimal prompting. He got angry and cursed at information security systems instructor, but then walked away and de-escalated quickly. Objective: Vital Signs Temp Pulse Resp BP Pulse Ox 36.4 C 54 L 14 107/57 L 99 05/20/17 05:10 05/20/17 05:10 05/20/17 05:10 05/20/17 05:10 05/20/17 05:10 Laboratory Results 05/18/17 05:50 05/19/17 05/20/17 05/21/17 05:59 05:59 05:59 Intake Total 1770 2470 1200 Output Total 200 Balance 1770 2270 1200 MSE: Affect: Labile, irritable at times, pleasant at times Mood: "OK" TP: Disorganized TC: Denies any SI/HI, no AH/VH Insight/Judgment: Impaired - Time Spent With Patient Time Spent With Patient: 25" - Pending Discharge Pending Discharge Within 24 Hours: No Pending Discharge Within 48 Hours: No ICD10 Worksheet Patient Problems: Problems Problem Status Onset Autism spectrum disorder Acute Bipolar I disorder with catatonia Acute Intellectual disability Acute Aggressive behavior Acute Dehydration Acute
--- NOTE | 2017-05-20 18:09 | HOSPPROG ---
Hospitalist Progress Note Assessment/Plan: Assessment: 31 yo M p/w hypersexual behavior in setting of Bipolar Disorder with psychotic and catatonic features, Borderline Intellectual Functioning, Autism Spectrum Disorder Plan: # Bipolar disorder w/ psychotic features. technical staff engineer requested that I evaluate patient's situation this AM, as he was supposed to have labs drawn this AM to monitor for any rhabdo/electrolyte abnormalities in setting of recent clozaril use and hx of rhabdo/dehydration - d/w RN and patient, he is eating/drinking OK, taking in at least 1L fluid and eating approx 50% of meal, so it is unlikely that he will become overtly hypovolemic so long as he continues this consumption pattern - on physical exam, patient's SBP > 100, not tachycardic, refuses all other exam - most recent labs w/ mild hypernatremia, Cr normal, CPK normal - reviewed outside records, DC Summary by Dr. Prerna Leos 04/28/17, reports patient had dehydration/rhabdo in early 04/09 in setting of poor PO intake and clozaril, reportedly resolved and discharged 04/14/17 - given that the patient is consuming PO and VS normal, no indication for emergent labs now - can reattempt lab draw CPK/BMP/CBC in AM, and, if he continues to take in PO and VS normal, and labs unable to be drawn, then would recommend ongoing daily attempts until successful, but no emergent transfer to ED Please contact daily coverage if additional assistance is required. Subjective: patient avoidant, keeps walking away during attempted encounter Objective: Vital Signs Temp Pulse Resp BP Pulse Ox 36.4 C 54 L 14 107/57 L 99 05/20/17 05:10 05/20/17 05:10 05/20/17 05:10 05/20/17 05:10 05/20/17 05:10 Laboratory Results 05/18/17 05:50 05/19/17 05/20/17 05/21/17 05:59 05:59 05:59 Intake Total 1770 2470 1200 Output Total 200 Balance 1770 2270 1200 - Physical Exam Constitutional: no apparent distress, not in pain, chronically ill appearing, unkempt, No uncomfortable Eyes: PERRL, anicteric sclera, EOMI, No scleral injection Skin: other (acne on face, no overt/open wounds, pustules, mild erythema) Neurologic: other (ambulating w/o any difficulties, surprisingly quick and able to rise w/o assist) Psychiatric: not anxious, flat affect, other (one-word verbal responses, poor eye contact), No agitated ICD10 Worksheet Patient Problems: Problems Problem Status Onset Autism spectrum disorder Acute Bipolar I disorder with catatonia Acute Intellectual disability Acute Aggressive behavior Acute Dehydration Acute
[2017-05-20] MEDS: SENNOSIDES 1 TAB PO SCH (18:48)
[2017-05-21] MEDS: LORazepam 1 MG TAB PO SCH ×4 (06:05→19:09)
[2017-05-21] MEDS: CLOTRIMAZOLE 1% 15 GM CRTUBE TP SCH ×2 (09:10→19:14)
[2017-05-21] MEDS: DIVALPROEX ER 500 MG TAB PO SCH (09:10)
[2017-05-21 09:26] LABS: PLATELET COUNT 87 10^3/uL (150-400)
[2017-05-21 10:18] LABS: CREATINE KINASE 101 IU/L (0-224)
--- NOTE | 2017-05-21 13:07 | SOAPPROG ---
SOAP Progress Note Assessment/Plan: Assessment/Plan: Per Dr. Wu's notes: 20 minute phone conference with family member caretaker Bjorn, aunt Rubina, and case management team (case sealer Alisha [place] nurse). Discussed assessment and plan. Discussed that myself with Dr. Jerome could petition the court for emergency ECT if patient deteriorates and needs medical hospitalization for dehydration. Discussed possibly retrying Clozapine if patient not clearly improved over next 2-3 days. Added CBC with differential to AM blood draw tomorrow. Assessment/Plan: Assessment: Bipolar Disorder with psychotic and catatonic features Borderline Intellectual Functioning Autism Spectrum Disorder Patient was in ER 05/16/17 for dehydration and lethargy and mutism after Ativan dose reduced. Patient having negativity/mutism alternating with excited agitation and bizarre/ impulsive behavior. Plan: Short Term Certification; will discuss voluntary treatment if having improved insight and organized behavior Patient stipulated for court ordered medications Assault precautions, inappropriate sexual behavior precautions Line of sight during meals to provide 1:1 prompts for PO intake Vitals BID Check AM BMP, CK Continue Depakote ER 1500mg Increase Ativan 1mg four times a day, if refused Ativan 1mg IM Olanzapine 5mg PO/IM PRN severe agitation Supportive care Aunt/Guardian exploring foster family placement if patient eating/drinking consistently and calm with caregivers OT evaluation to assist with hygiene 05/20/17 14:02 1. Staff unable to draw blood for BMP, CBC. Patient has been eating and drinking more appropriately. He had 1,000cc of fluid this AM, and ate 50% of breakfast per staff. 2. Patient took shower and washed his hair. He performed ADLs today with less prompting. He applied clotrimazole himself without any prompting. 3. VS are stable. HQ=505/57, HR=54 4. Continues to await placement. 05/21/17 13:04 1. VSS - BP was low at 93/58, HR was 66 2. CBC was WNL except platelets were low at 87, BMP was WNL 3. Patient performed all ADLs on his checklist today with minimal prompting. 4. Still waiting for placement. Subjective: Met with patient, reviewed chart and d/w staff. Patient has been appropriate, respecting ISP precautions, no inappropriate sexual language, no outbursts or irritability. Patient continues to ask for discharge. He told staff yesterday he wants to "go live in an apartment", but today said he would be willing to stay in "a shelter" if necessary. Objective: Vital Signs Temp Pulse Resp BP Pulse Ox 36.5 C 66 16 93/58 L 98 05/21/17 08:00 05/21/17 08:00 05/21/17 08:00 05/21/17 08:00 05/21/17 08:00 Laboratory Results 05/21/17 07:00 05/21/17 07:00 05/20/17 05/21/17 05/22/17 05:59 05:59 05:59 Intake Total 2470 2180 Output Total 200 Balance 2270 2180 MSE: Affect: Euthymic Mood: "OK" TP: Logical, goal-directed TC: No SI/HI, no AH/VH, no paranoia Insight/Judgment: Impaired - Time Spent With Patient Time Spent With Patient: 20" - Pending Discharge Pending Discharge Within 24 Hours: No Pending Discharge Within 48 Hours: No ICD10 Worksheet Patient Problems: Problems Problem Status Onset Autism spectrum disorder Acute Bipolar I disorder with catatonia Acute Intellectual disability Acute Aggressive behavior Acute Dehydration Acute
[2017-05-21] MEDS: SENNOSIDES 1 TAB PO SCH (19:09)
[2017-05-22] MEDS: LORazepam 1 MG TAB PO SCH ×4 (05:55→20:32)
[2017-05-22] MEDS: DIVALPROEX ER 500 MG TAB PO SCH (08:32)
[2017-05-22] MEDS: CLOTRIMAZOLE 1% 15 GM CRTUBE TP SCH ×2 (08:33→20:32)
--- NOTE | 2017-05-22 08:56 | SOAPPROG ---
SOAP Progress Note Assessment/Plan: Assessment: Bipolar Disorder with psychotic and catatonic features Borderline Intellectual Functioning Autism Spectrum Disorder Patient was in ER 05/16/17 for dehydration and lethargy and mutism after Ativan dose reduced. Patient calm with restricted affect, ate and drank well this AM, had brief agitation over weekend. BMP WNL yesterday Plan: Short Term Certification; will discuss voluntary treatment if having improved insight and organized behavior Patient stipulated for court ordered medications Assault precautions, inappropriate sexual behavior precautions Line of sight during meals to provide 1:1 prompts for PO intake Vitals BID Continue Depakote ER 1500mg Continue Ativan 1mg four times a day, if refused Ativan 1mg IM Olanzapine 2.5mg PO/IM PRN severe agitation Supportive care Aunt/Guardian exploring foster family placement if patient eating/drinking consistently and calm with caregivers 05/22/17 08:55 Subjective: CC: "I'm OK" Patient denies problems. Reports wanting to talk to aunt today and wants to get out of the hospital. Denies any complaints or somatic symptoms. Agrees to take medication and cooperate with staff regarding hygiene and PO intake. Objective: Vital Signs Temp Pulse Resp BP Pulse Ox 36.5 C 58 L 14 116/58 L 99 05/21/17 08:00 05/21/17 15:49 05/21/17 15:49 05/21/17 15:49 05/21/17 15:49 Laboratory Results 05/21/17 07:00 05/21/17 07:00 05/21/17 05/22/17 05/23/17 05:59 05:59 05:59 Intake Total 2180 1350 Balance 2180 1350 Alert WM, ambulatory without weakness or tremors. Speech soft few words. Denies SI or HI or AH. Poverty of thought. Mood "I'm OK." Affect restricted/ blunted. limited/poor insight. Judgment questionable. Staff report patient eating/drinking well over weekend. Had brief episodes of agitation, got 2.5mg Zyprexa PRN yesterday. This AM ate 75% breakfast and drank 400-500 cc of Gatorade. - Time Spent With Patient Time Spent With Patient: 10 minutes - Pending Discharge Pending Discharge Within 24 Hours: No Pending Discharge Within 48 Hours: No ICD10 Worksheet Patient Problems: Problems Problem Status Onset Autism spectrum disorder Acute Bipolar I disorder with catatonia Acute Intellectual disability Acute Aggressive behavior Acute Dehydration Acute
[2017-05-22] MEDS: SENNOSIDES 1 TAB PO SCH (20:32)
[2017-05-23] MEDS: LORazepam 1 MG TAB PO SCH ×4 (06:24→20:13)
[2017-05-23 06:30] VITALS: O2SAT 95
--- NOTE | 2017-05-23 08:25 | SOAPPROG ---
SOAP Progress Note Assessment/Plan: Assessment: Bipolar Disorder with psychotic and catatonic features Borderline Intellectual Functioning Autism Spectrum Disorder Patient has been eating and drinking well on unit and cooperative with staff for ADLs, appears calm this AM. Patient has brief inappropriate behavior at times likely related to autism. Plan: Short Term Certification; will discuss voluntary treatment if having improved insight and organized behavior Patient stipulated for court ordered medications Assault precautions, inappropriate sexual behavior precautions Line of sight during meals to provide 1:1 prompts for PO intake Vitals BID Continue Depakote ER 1500mg Continue Ativan 1mg four times a day, if refused Ativan 1mg IM Olanzapine 2.5mg PO/IM PRN severe agitation Supportive care Family meeting with aunt to review discharge plan 05/23/17 08:21 Subjective: CC: "OK" "Great" Patient denies problems. Denies pain or feeling sedated. Denies anxiety or fear or mood swings or agitation. Agreeable to meet with aunt to review discharge planning. Objective: Vital Signs Temp Pulse Resp BP Pulse Ox 36.3 C 50 L 14 97/56 L 95 05/23/17 06:29 05/23/17 06:29 05/23/17 06:29 05/23/17 06:29 05/23/17 06:29 Laboratory Results 05/21/17 07:00 05/21/17 07:00 05/22/17 05/23/17 05/24/17 05:59 05:59 05:59 Intake Total 1350 1790 Output Total 800 Balance 1350 990 Alert WM with acne. Speech soft few words. Cooperative with staff and appearing calm. Able to dress and use toilet with prompts. Ambulates to dining area and eating breakfast. Mood 'great' 'OK' affect restricted with poor eye contact. Thoughts briefly organized with minimal detail. Denies SI or violent thoughts or paranoia or AH. Poor insight, questionable judgment. Staff report patient slept well overnight, eating and drinking well on unit with prompts. Early yesterday AM briefly yelled a profanity and slapped wall. Inappropriately touched one patients leg while passing in group room. Cooperative with medications - Time Spent With Patient Time Spent With Patient: 10 minutes - Pending Discharge Pending Discharge Within 24 Hours: Yes Pending Discharge Date: 05/24/17 Pending Discharge Time: 11:00 ICD10 Worksheet Patient Problems: Problems Problem Status Onset Autism spectrum disorder Acute Bipolar I disorder with catatonia Acute Intellectual disability Acute Aggressive behavior Acute Dehydration Acute
[2017-05-23] MEDS: DIVALPROEX ER 500 MG TAB PO SCH (09:05)
[2017-05-23] MEDS: CLOTRIMAZOLE 1% 15 GM CRTUBE TP SCH ×2 (09:05→20:13)
[2017-05-23 18:10] VITALS: BP 105/63; PULSE 78; RESP 17; TEMP 97.9
[2017-05-23] MEDS: SENNOSIDES 1 TAB PO SCH (20:13)
[2017-05-24] MEDS: LORazepam 1 MG TAB PO SCH ×3 (06:39→15:47)
[2017-05-24] MEDS: DIVALPROEX ER 500 MG TAB PO SCH (08:31)
[2017-05-24] MEDS: CLOTRIMAZOLE 1% 15 GM CRTUBE TP SCH (10:29)
--- NOTE | 2017-05-24 18:23 | BDS ---
[f rep st] BEHAVIORAL HEALTH DISCHARGE SUMMARY ADMITTING DIAGNOSIS: Schizoaffective disorder, bipolar type, with catatonic features, autism spectrum disorder, and borderline intellectual functioning. IDENTIFICATION: This is a 31-year-old single white male, with a history of borderline intellectual functioning, autism spectrum disorder and schizoaffective disorder, who was recently living with his aunt, who is his guardian for financial and medical decision making. BRIEF PSYCHIATRIC HISTORY: Please review the Psychiatric Admission Summary from April 28, 2017, as well as the note by psychiatrist, Dr. Christopher, Consultation at [facility] on April 20, 2017. The patient has a history of borderline IQ with a full-scale IQ of 72. He also has a history of autism, diagnosed by 2 separate specialists psychologists in the past. The patient apparently has a history of depression, anxiety, insomnia, manic symptoms and disorganized agitation. He has been on psychiatric medications since approximately 1999. The patient has a history of taking Clozaril for the majority of the past 4 years. He has also been on Depakote, combined with either Abilify or Risperdal Consta in the past. He has also been on Zyprexa, Geodon, and several antidepressants in the past. The patient has a history of multiple psychiatric hospitalizations in [place]. The patient moved to [place] in early 2016. He was hospitalized at [facility] in early March 2017. He was recently in outpatient treatment in the [facility] with Dr. Melendez for psychiatric medication management and was recently tapered off of Clozapine. BRIEF MEDICAL HISTORY: The patient has a history of rhabdomyolysis and treated at [facility] in mid March 2017, after receiving psychiatric treatment at [facility]. The patient also was treated for dehydration, related to poor p.o. intake, in the emergency room and on the intensive care unit at [facility] prior to admission to the psychiatric unit here at [address] [place] [address]. The patient has a history of acne and seborrheic dermatitis on his face. HOSPITAL COURSE: Please review the Interim Summary dictated on May 19, 2017. The patient apparently had been on Clozaril for several years. The dose was reduced due to recommendations from the outpatient treatment provider and the patient's guardian, due to concerns that he was overmedicated, oversedated, and had unclear underlying psychiatric disorder. After this happened, the patient decompensated and was hospitalized at [facility]. The patient then had rhabdomyolysis treated with IV fluids and Librium at [facility]. After that, the patient returned home for a few days, and then presented to the emergency room at [facility] for severe agitation , manic hypersexuality, agitation, menacing behaviors, and severe disorganization. In the emergency department, the patient was in restraints for 3 days, received numerous IV and IM medications, including Zyprexa IM, Geodon IM, intravenous Valium, IM ketamine, IV Versed, and IM Benadryl. The patient was not eating or drinking and then admitted to the intensive care unit at [facility] for dehydration and mild CK elevation. He received IV fluids for dehydration and was initially started on a dose of Clozaril and then a dose of Zyprexa. Upon admission to the inpatient unit here, the patient was placed on a short-term certification with a letter for court-ordered medications , as the patient was gravely disabled and not consenting for treatment or medication. He was extremely hypersexual, masturbating in front of staff, propositioning multiple staff for sex. He also had extremely disorganized behavior. He also had what appeared to be a catatonic stupor, where he was mute , not speaking, nonverbal, and had difficulty communicating and then, other times, he would run through the hallways in a disorganized manner and act bizarre. The patient was initially started on a combination of Zyprexa and Depakote for presumed bipolar disorder with psychotic features. Over the first few days on the inpatient unit, the patient was extremely agitated and did receive Haldol, combined with Depakote. The patient was later treated with a combination of Depakote, Risperdal, and Ativan for presumed bipolar disorder with catatonic and psychotic features. The patient continued to have some catatonic symptoms, such as mutism, poor or limited verbal skills, difficulty eating and drinking without prompts. He did have a marked reduction in the hypersexual behaviors and became much more calm. Due to the waxing and waning catatonic symptoms, the doses of Ativan were slowly increased, and the dose of the Risperdal was tapered downward and eventually discontinued. The patient did have poor p.o. intake and need multiple prompts for eating and drinking during the majority of the hospitalization, along with waxing and waning mutism. He did become dehydrated and had to go to the emergency room once on May 16 for 2 L of IV fluid. The patient received multiple blood tests to monitor for dehydration, as well as rhabdomyolysis. The patient appeared to respond markedly to Ativan 1 mg 4 times a day for catatonia. The patient tolerated Depakote as a mood stabilizer. The patient had a marked improvement in his sleep cycles, behavior and mood stability, and remission of his hypersexual behavior. The patient had poor verbal skills and poor social skills and some brief, inappropriate tantrums on the unit, but this appeared to be close to his baseline functioning related to autism. Discharge planning was complicated by the fact that the patient had been living with his aunt, who is his guardian for medical decision making and financial decision making. She and her were fearful of the patient returning to live with them due to his severe mental illness and inappropriate behavior. His aunt was able to visit numerous times and was able to work with the case reviewer from the [facility] toward discharge planning. It appears that the patient will return home with his aunt short-term until he can have a foster family placement or move to a shelter in [place] near his half-brother's home. On the unit, the patient did have acne on his face. He did have symptoms of seborrheic dermatitis and was given clotrimazole ointment on his face. The patient had inappropriate behaviors during the early course of his hospitalization, including hugging and grabbing people, masturbating naked in front of people, making sexual comments to multiple people, but this was in remission for over a week prior to discharge. The patient did well with numerous prompts for taking his medication and numerous prompts for eating and drinking on the unit; staff on the unit and the patients aunt were able to get the patient to change clothes and shower and brush his teeth with minimal prompts prior to discharge. CONSULTS: As noted before, on May 16, 2017, the patient went to the emergency room and got 2 L of IV fluid for dehydration. The patient had a baseline physical exam while hospitalized at [facility]. The patient did receive an ECT consultation on May 03, 2017, by Dr. Jerome. The patient had an occupational therapy evaluation on the unit as well. PROCEDURES: No procedures were performed, other than noted above. LABS: The patient had numerous lab tests to monitor for dehydration and rhabdomyolysis. His most recent labs include the following: On May 21, 2017, he had a white blood cell count of 6.1, hemoglobin 16, platelet count 87. Sodium 143, potassium 4.2, creatinine 0.8, glucose 75, calcium 8.8. Creatine kinase 101. On May 18, 2017, he had a valproic acid level of 104. This was on 1500 mg of Depakote ER daily. On May 09, he had a urinalysis that was negative except for trace ketones. On May 02, 2017, he had an HIV test that was negative. On May 05, 2017, he had an AST 18, ALT 24. On April 20, 2017, he had a TSH of 0.7. In the emergency room on March 28, prior to the current admission, his urine drug screen was negative. On April 27, 2017, he had an BURAK screen that was negative. On April 27, 2017, his RPR test was nonreactive. ADVANCED DIRECTIVES: The patients aunt Rubina Herrera is the patients medical decision maker and court appointed guardian. METABOLIC SCREENING: the patient had multiple fasting glucoses that were WNL. He is underweight and not on an atypical antipsychotic so is at low risk for metabolic syndrome. ALCOHOL AND TOBACCO SCREENING: the patient is not diagnosed with either nicotine use disorder or alcohol use disorder CONDITION ON DISCHARGE: He is alert white male in no acute distress. He is ambulatory without focal weakness. He has acne. He has poor eye contact. His speech is soft and regular rate and rhythm with minimal speech. His mood is "okay." His affect is restricted with poor eye contact. His thoughts are briefly organized with a poverty of information. He denies any thoughts to hurt himself or others. He denies auditory hallucinations or paranoia. He is oriented to month, year, and president. He has limited vocabulary. He has limited insight but appropriate judgment regarding discharge planning. He has a positive attitude about leaving the hospital with his aunt. 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 DISCHARGE MEDICATIONS: Depakote ER 1500 mg by mouth daily, lorazepam 1 mg by mouth 4 times a day, Senokot 2 tablets by mouth at bedtime, clotrimazole 1% lotion applied to face twice a day. DISPOSITION: The patient is leaving the hospital with his aunt who is his guardian. FOLLOWUP: The patient has an appointment to see Dr. Melendez at the [facility] which is a supportive program for patients with intellectual disabilities or developmental disabilities. I left a message with Dr. Melendez at phone number [phone], with my contact information, as well as the assessment and plan for the patient. LEGAL STATUS: The patient was admitted on an M1 hold and then later stipulated for short-term certification and court-ordered medications. This will be terminated when the patient is discharged from the hospital. /[id number]/MODL MTDD
== END 2017-05-24 16:08 | disposition home or self-care (01) | DRG 885 ==
LOC: BBEH 11:00 → UNDODISIN 05-05 19:30
DX: F31.5 Bipolar disorder, current episode depressed, severe, with psychotic features (principal); F84.0 Autistic disorder; R41.83 Borderline intellectual functioning; L70.9 Acne, unspecified; L21.9 Seborrheic dermatitis, unspecified; D69.59 Other secondary thrombocytopenia; T42.6X5A Adverse effect of other antiepileptic and sedative-hypnotic drugs, initial encounter
CPT/HCPCS: 97166-GO; 97535-GO; G8987-GO-CI; G8988-GO-CI; G8989-GO-CI; J2060

== ENCOUNTER 2017-05-16 12:27 | Emergency (ER) | payer OTHER, MEDICAID ==
[2017-05-16 12:33] VITALS: RESP 18; TEMP 97.5
[2017-05-16] MEDS ORDERED: NS 1,000 ML IV ONE ×2 (12:38→12:41)
--- NOTE | 2017-05-16 12:40 | CPEKG ---
Heart Rate: 58 RR Interval: 1034 P-R Interval: 144 QRSD Interval: 98 QT Interval: 396 QTC Interval: 389 P Cambridge: 64 QRS Cambridge: 72 T Wave Cambridge: 53 EKG Severity - NORMAL ECG - EKG Impression: SINUS RHYTHM Electronically Signed By: Jean Paul Clarke 16-May-2017 15:30:22
[2017-05-16 12:47] LABS: PLATELET COUNT 94 10^3/uL (150-400)
[2017-05-16 12:54] LABS: CREATINE KINASE 98 IU/L (0-224)
[2017-05-16 14:02] VITALS: BP 102/58
--- NOTE | 2017-05-16 14:15 | EDPHY ---
H & P Time Seen by Provider: 05/16/17 12:41 HPI/ROS: HPI Dehydrated, sent from [address] [place] [address], concerned about rhabdomyolysis. 31-year-old male, history of autism and psychosis, sent from [address] [place] [address] by the psychiatrist, Dr. Wu, who is currently managing him. The patient has not been drinking fluids and is not speaking as much as usual. The staff at [address] [place] [address] concerned that he is developing rhabdomyolysis and dehydration. They are also concerned he has been bradycardic. ROS: Unable to obtain review of systems secondary to patient's underlying mental illnesses. Past medical history: Psychosis, autism. As above. Social history: Nonsmoker. No alcohol. No history of IV or street drug abuse. Here by himself. Physical Exam: General Appearance: Alert, flat affect. Sitting upright in the gurney. This patient is responding to questions in yes or no answers. This patient appears generally well-hydrated and well-nourished. Eyes: Pupils equal and round no pallor or injection. No lid edema, erythema or injection. ENT, Mouth: Mucous membranes are moist. Respiratory: There are no retractions, lungs are clear to auscultation anteriorly with good air movement bilaterally. Cardiovascular: Regular rate and rhythm. No murmur. Gastrointestinal: Abdomen is soft and nontender, no masses, bowel sounds normal. No focal tenderness at McBurney's point. No Gordon sign. Neurological: Motor sensory function is grossly intact. Cranial nerves are normal. Gait is normal. Skin: Warm and dry, no rashes. Musculoskeletal: Neck is supple and nontender. Extremities are symmetrical. All joints range without pain or impingement. Psychiatric: No agitation. No depression. Database: EKG: EKG time is 12:34 p.m.; EKG shows a narrow complex normal sinus rhythm with a ventricular rate of 58. The ND, QRS, QT intervals are within normal limits. There are no ST-T wave changes indicative of ischemic or injury pattern. No evidence of right heart strain. No evidence of WPW, Brugada syndrome, hypertrophic cardiomyopathy. Interpreted by me. Imaging: Procedures: Emergency department course: Vital signs reviewed and are unremarkable. EKG obtained and reviewed by myself. 2:15 p.m., the patient has had 1 L of IV normal saline. He has a meal tray in front of him. He has a can of Pepsi is well. He tells me that he is not hungry at this time. A 2nd L of normal saline is being started. His EKG and laboratory work upper unremarkable. There is no evidence of rhabdomyolysis. I feel he is at his baseline neurologic and Behavioral state. I feel he is safe for discharge back to [address] [place] [address] after he finishes his 2nd L of normal saline. This plan was discussed with the psychiatrist Dr. Wu whom I spoke to initially about this patient's emergency department visit. The patient's remaining emergency department course under my care has been uneventful. He was returned to [address] [place] [address] in stable condition. Differential Diagnosis: The differential diagnosis on this patient includes but is not limited to failure to thrive, mild dehydration, history of autism and psychosis. This represents a partial list of diagnoses considered. These considerations are based on history, physical exam, past history, reassessment and diagnostic testing. Smoking Status: Never smoked Constitutional: Initial Vital Signs Temperature (C) 36.4 C 05/16/17 12:32 Heart Rate 61 05/16/17 12:32 Respiratory Rate 18 05/16/17 12:32 Blood Pressure 117/70 05/16/17 12:32 O2 Sat (%) 99 05/16/17 12:32 O2 Delivery Mode Room Air Allergies/Adverse Reactions: buspirone [From BuSpar] Allergy (Verified 03/30/17 12:34) Anxiety citalopram [From Celexa] Allergy (Verified 03/30/17 12:34) MANIC paroxetine [From Paxil] Allergy (Verified 03/30/17 12:34) Anxiety ziprasidone [From Geodon] Allergy (Verified 03/30/17 12:34) Other-Enter Comments Home Medications: Medication Instructions Recorded Divalproex ER [Depakote ER 500 MG 1,500 mg PO DAILY #90 tab 05/15/17 (*)] Iron/Vit C/Docusate [Pablo-Sequels 1 each PO DAILY #30 tab.er 05/15/17 65 mg (*)] LORazepam [Ativan (*)] 0.5 mg PO BID #60 tab 05/15/17 Sennosides [Senokot] 2 tab PO HS #60 tab 05/15/17 risperiDONE [Risperdal-M] 1 mg SL HS #30 odt 05/15/17 Medical Decision Making - Data Points Laboratory Results: Laboratory Results 05/16/17 12:20 05/16/17 12:20 Medications Given: Discontinued Medications Sodium Chloride (Ns) 1,000 mls @ 0 mls/hr IV ONCE ONE PRN Reason: Wide Open Stop: 05/16/17 12:39 Last Admin: 05/16/17 12:38 Dose: 1,000 mls Sodium Chloride (Ns) 1,000 mls @ 0 mls/hr IV EDNOW ONE; Wide Open PRN Reason: Protocol Stop: 05/16/17 12:42 Last Admin: 05/16/17 14:36 Dose: 1,000 mls Departure - Departure Disposition: [facility] Clinical Impression: Psychosis, Autism, Mild dehydration Condition: Good Instructions: Dehydration (ED) Additional Instructions: This patient's emergency department workup has been unremarkable. He was noted to be slightly hemoconcentrated on his CBC. His electrolytes were unremarkable. His creatine kinase was within normal limits. He does not have rhabdomyolysis. His EKG shows a sinus rhythm, narrow complex with ventricular rate of 58. No other abnormalities. Continue to encourage normal diet and oral hydration. Return the patient to the emergency department for any serious concerns. Referrals: Bryant Wu MD [Medical Doctor] - As per Instructions
[2017-05-16 14:23] VITALS: PULSE 44; O2SAT 98
== END 2017-05-16 16:07 ==
LOC: EDUNIT#
DX: E86.0 Dehydration (principal); F84.0 Autistic disorder; F29 Unspecified psychosis not due to a substance or known physiological condition

== ENCOUNTER 2017-06-07 11:48 | Inpatient (IN) | payer OTHER, MEDICAID ==
[2017-06-07 13:15] LABS: PLATELET COUNT 117 10^3/uL (150-400)
--- NOTE | 2017-06-07 13:38 | EDPHY ---
H & P Smoking Status: Never smoked Time Seen by Provider: 06/07/17 11:53 HPI/ROS: HPI Talking nonsensically, agitated, noncompliant with medications. 32-year-old male by ambulance. This patient has a history of schizophrenia and autism. He has been living with his aunt for the last 2 weeks. He is originally from [place]. For the last week he has apparently not been taking his psychiatric medications. His aunt states that he is agitated, difficult to control and showing signs of psychosis. According to EMS he was agitated on the way to the emergency department. He received 10 mg in total of intramuscular Versed. His aunt also wants a rash on both his upper extremities , forearms wrist and hands to be evaluated. The patient is currently managed by [facility]. ROS: Constitutional: No fever, no chills. As above. Eyes: No discharge. No changes in vision. ENT: No sore throat. No nasal congestion or rhinorrhea. Respiratory: No cough. No shortness of breath. Cardiac: No chest pain, no palpitations. Gastrointestinal: No abdominal pain, no vomiting, no diarrhea. Genitourinary: No hematuria. No dysuria or increased frequency with urination. Musculoskeletal: No back pain. No neck pain. No myalgias or arthralgias. Skin: As above. Neurological: No headache. No focal weakness or altered sensation. Past medical history: Autism and schizophrenia. Social history: Nonsmoker. No alcohol. As above. Physical Exam: General Appearance: Alert, disheveled in appearance. This patient is responding to questions appropriately and in full sentences. This patient appears well-hydrated and well-nourished. Eyes: Pupils equal and round no pallor or injection. No lid edema, erythema or injection. ENT, Mouth: Mucous membranes are moist. The pharyngeal tissues are unremarkable. No edema or swelling. No asymmetry suggestive of abscess. No erythema or exudates. Respiratory: There are no retractions, lungs are clear to auscultation with good air movement bilaterally. Cardiovascular: Regular rate and rhythm. No murmur. Gastrointestinal: Abdomen is soft and nontender, no masses, bowel sounds normal. No focal tenderness at McBurney's point. No Gordon sign. Neurological: Motor sensory function is grossly intact. Cranial nerves are normal. Gait is normal. Skin: Warm and dry, erythematous, blanching dermatitis involving forearms and hands bilaterally, likely secondary to dryness. This does not appear to be fungal. No petechiae. Musculoskeletal: Neck is supple and nontender. Extremities are symmetrical. All joints range without pain or impingement. Psychiatric: No agitation. No depression. Database: EKG: Imaging: Procedures: Emergency department course: Vital signs reviewed and are normal. Appropriate blood work ordered. Behavioral Health notified. Will attempt to give him his prescribed medications. The patient was placed on a detainer at 2:00 p.m.. He will be placed on an M1 hold shortly by [facility]. Secondary to agitation at this time he was given 10 mg of intramuscular Haldol. 3:00 p.m., blood work has been reviewed. Awaiting behavioral health evaluation. Care turned over to Dr. Oneal Deleon at this time. Differential Diagnosis: The differential diagnosis on this patient includes but is not limited to schizophrenia, noncompliance with psychiatric medications, psychosis. This represents a partial list of diagnoses considered. These considerations are based on history, physical exam, past history, reassessment and diagnostic testing. (Jean Paul Clarke) Constitutional: Initial Vital Signs Temperature (C) 36.5 C 06/07/17 11:59 Heart Rate 89 06/07/17 11:59 Respiratory Rate 18 06/07/17 11:59 Blood Pressure 99/48 L 06/07/17 11:59 O2 Sat (%) 98 06/07/17 11:59 O2 Delivery Mode Room Air Allergies/Adverse Reactions: No Known Allergies Allergy (Unverified 06/07/17 13:19) Home Medications: Medication Instructions Recorded Divalproex ER [Depakote ER 500 MG 1,500 mg PO DAILY 06/07/17 (*)] LORazepam [Ativan (*)] 1 mg PO QID 06/07/17 Medical Decision Making Other Provider: I gave him care assumed at 2:38 by Drew for psychiatric evaluation for decompensated schizophrenia. Patient getting more agitated, personally evaluated by myself at 5:20 p.m.. Zyprexa 10 mg IM ordered. 2215: S[facility] out to [facility] with plan for psych admission to tomorrow. (Oneal Deleon) 6:40 a.m.- The patient remained stable throughout my shift. He did not require any additional medication. The plan is still for likely admission to [address] [place] [address] this morning. At 7:00 a.m., the case will be signed out to the oncoming provider Dr. Ceballos. (Alondra Bee) I assumed care of the patient at 0700 pending psychiatric disposition. 8:20 a.m.: The patient has been accepted for inpatient psychiatric hospitalization by Dr. Braden Jerome at [facility]'s psychiatric unit. I have filled out the EMTALA transfer form. (Israel Ceballos) - Data Points Laboratory Results: Laboratory Results 06/07/17 12:30 06/07/17 12:30 Medications Given: Discontinued Medications Haloperidol Lactate (Haldol Injection) 10 mg IM EDNOW ONE Stop: 06/07/17 13:42 Last Admin: 06/07/17 13:56 Dose: 10 mg Lorazepam (Ativan Injection) 2 mg IM EDNOW ONE Stop: 06/07/17 17:27 Last Admin: 06/07/17 20:19 Dose: Not Given Olanzapine (Zyprexa Im Injection) 10 mg IM EDNOW ONE Stop: 06/07/17 17:26 Last Admin: 06/07/17 17:38 Dose: 10 mg Olanzapine (Zyprexa Zydis) 10 mg PO EDNOW ONE Stop: 06/08/17 07:42 Last Admin: 06/08/17 07:43 Dose: 10 mg Departure - Departure Disposition: [facility] IP Clinical Impression: Schizophrenia, Psychosis Condition: Fair Referrals: NONE *PRIMARY CARE P,. [Primary Care Provider] - As per Instructions
[2017-06-07] MEDS ORDERED: HALOPERIDOL LACT 5 MG/ML INJ IM ONE (13:41)
[2017-06-07] MEDS ORDERED: OLANZapine 10 MG/2 ML VIAL IM ONE (17:25)
[2017-06-07] MEDS ORDERED: LORazepam 2 MG/ML INJ IM ONE (17:26)
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
[2017-06-07 19:40] LABS: CREATINE KINASE 266 IU/L (0-224)
[2017-06-08] MEDS ORDERED: OLANZapine DISINTEGR 10 MG TAB ONE (07:40)
[2017-06-08] MEDS ORDERED: OLANZapine DISINTEGR 10 MG TAB PO ONE (07:41)
[2017-06-08] MEDS ORDERED: HALOPERIDOL LACT 5 MG/ML INJ ONE (10:12)
[2017-06-08] MEDS ORDERED: MAG HYDROX/AL HYDROX/SIMETH 30 ML UDCUP PO PRN (11:03)
[2017-06-08] MEDS ORDERED: LORazepam 0.5 MG TAB PO PRN ×2 (11:03→11:09)
[2017-06-08] MEDS ORDERED: NICOTINE POLACRILEX 2 MG GUM B PRN (11:03)
[2017-06-08] MEDS ORDERED: ACETAMINOPHEN 325 MG TAB PO PRN (11:03)
[2017-06-08] MEDS ORDERED: MAGNESIUM HYDROXIDE 30 ML UDCUP PO PRN (11:03)
[2017-06-08] MEDS ORDERED: LORazepam 2 MG/ML INJ IM PRN (11:17)
[2017-06-08] MEDS ORDERED: BENZTROPINE MESYLATE 2 MG/2 ML INJ IM PRN (11:17)
[2017-06-08] MEDS ORDERED: HALOPERIDOL LACT 5 MG/ML INJ IM PRN (11:17)
[2017-06-08] MEDS: DIVALPROEX ER 500 MG TAB PO SCH ×2 (11:29→20:28)
[2017-06-08] MEDS ORDERED: LORazepam 2 MG/ML INJ IM ONE (11:45)
[2017-06-08] MEDS ORDERED: HALOPERIDOL LACT 5 MG/ML INJ IM ONE (12:00)
[2017-06-08] MEDS: BENZTROPINE MESYLATE 1 MG TAB PO SCH ×2 (12:43→20:28)
[2017-06-08] MEDS: LORazepam 1 MG TAB PO SCH ×2 (16:13→20:51)
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
--- NOTE | 2017-06-08 17:34 | BCON ---
[f rep st] BEHAVIORAL HEALTH CONSULTATION INTERNAL MEDICINE CONSULTATION DATE OF CONSULTATION: 06/08/2017 REFERRING PHYSICIAN: Braden Jerome MD REASON FOR REFERRAL: Medical clearance for inpatient [facility] stay. HISTORY OF PRESENT ILLNESS: This patient came to the emergency department by ambulance. He had been agitated, noncompliant with medications and talking nonsensically at his home with his aunt. He had been there for approximately 2 weeks after discharge from Inpatient Behavioral Health at [facility]. He required intramuscular Versed treatment due to agitation on the way to the emergency department. He is currently without any acute complaints. PAST MEDICAL HISTORY: 1. Autism spectrum disorder. 2. Schizophrenia versus bipolar disorder. 3. Rhabdomyolysis. PAST SURGICAL HISTORY: He denies any history of surgeries. MEDICATIONS: He had been prescribed divalproex ER 1500 mg p.o. daily, and lorazepam 1 mg p.o. four times daily. ALLERGIES: There are no known drug allergies. SOCIAL HISTORY: He lives with his family. He reports that he smokes 3-6 packs of cigarettes a day. He denies alcohol use. FAMILY HISTORY: Noncontributory. REVIEW OF SYSTEMS: He reports left foot pain. He says he has [place] the [place] quite a bit wearing loafers. He denies cough, dyspnea, fevers, chills. There is an 18 kg weight loss documented in chart since March of 2017. Otherwise, a 10-point review of systems is negative. PHYSICAL EXAM: VITAL SIGNS: Blood pressure is 115/82, heart rate is 100, respiratory rate is 15, saturation is 99% on room air, temperature is 36.7 degrees centigrade. His weight is 63.5 kg for a body mass index of 24. GENERAL : This is a well-nourished, well-developed man, somewhat unkempt, sitting up in bed, cooperative, and in no acute distress. HEENT: Extraocular movements are intact. Pupils are equal, round, reactive to light. Mucous membranes are moist. Dentition is in good condition. He has uncrowded airway, Mallampati class 1. NECK: Supple. HEART: There is a regular rate and rhythm with no murmurs, rubs, or gallops. LUNGS: Clear to auscultation bilaterally. ABDOMEN : Benign. EXTREMITIES: There is no cyanosis, clubbing, or edema. Left foot is nontender with no bruising and normal range of motion about the ankle. NEUROLOGIC: Cranial nerves 2-12 are grossly intact. There is no focal weakness. Sensation is intact to light touch. SKIN: he has a flaky erythematous rash on the backs of his hands and wrists. LABORATORY STUDIES: From the emergency department, CBC was overall within normal limits, except for a low platelet count at 117. Reviewing labs as far back as 04/17/2017, the thrombocytopenia began on 05/16/2017, the theresa on 05/21 was 87. Serum chemistry revealed a slightly high chloride at 111, a slightly low carbon dioxide at 21; otherwise, renal function and electrolytes were within normal limits. Creatine kinase was slightly elevated at 266 and historically, when he had his diagnosis of rhabdomyolysis, his peak CPK was 1006. Toxicology screen in the serum was negative for ethyl alcohol. ASSESSMENT/RECOMMENDATIONS: 1. Mental health issues, pending further evaluation and management per Psychiatry and the mental health team. 2. Left foot pain of unclear etiology. There is no tenderness or bruising. There is no need to obtain an x-ray. It may be that he has been walking extensively with inadequate shoes. 3. Dermatitis on the backs of his hands and wrists. Query whether this is due to sun exposure or dry skin. Advise a skin emollient, but I will leave it to the discretion of Psychiatry whether it is safe in terms of his agitation as it might make it difficult to restrain him should that be necessary. Would use Aquaphor which is available on the hospital formulary, twice daily. 4. Rhabdomyolysis appears to be at a low level with a minimally elevated CPK. Advise adequate hydration. 5. Weight loss. He had a normal TSH in March, so doubt that he has hyperthyroidism; more likely, it is related to his behavioral issues. Consider a market development director consult. Otherwise, observe for normal caloric intake as his psychiatric condition is stabilized. 6. Thrombocytopenia. Query whether this may be related to divalproex sodium and recent improvement related to medical noncompliance. It is not serious enough to place him at any risk for bleeding, so it should not affect choices regarding medications; however, it would be worthwhile to monitor periodically during his stay and afterwards. 7. Question of tobacco dependence. He reports he is not interested in quitting smoking. Nicotine gum has been prescribed and that is appropriate during his hospitalization. I see no medical contraindications to this patient's continued stay on the inpatient behavioral health unit or to any psychiatric medications or procedures. Thank you very much for including me in the care of this patient. Please do not hesitate to contact me or the hospitalist service should there be need for further medical evaluation. /[id number]/MODL MTDD
[2017-06-08] MEDS: HALOPERIDOL 5 MG TAB PO SCH (20:28)
[2017-06-08] MEDS ORDERED: HALOPERIDOL 10 MG TAB PO SCH (21:00)
[2017-06-09] MEDS: LORazepam 1 MG TAB PO SCH ×3 (09:04→21:17)
[2017-06-09] MEDS: BENZTROPINE MESYLATE 1 MG TAB PO SCH ×2 (09:04→21:16)
[2017-06-09] MEDS: DIVALPROEX ER 500 MG TAB PO SCH ×2 (09:04→21:16)
[2017-06-09] MEDS: HALOPERIDOL 5 MG TAB PO SCH ×2 (09:04→21:17)
[2017-06-09] MEDS ORDERED: BENZTROPINE MESYLATE 2 MG/2 ML INJ IM PRN (15:42)
[2017-06-09] MEDS ORDERED: HALOPERIDOL LACT 5 MG/ML INJ IM PRN (15:42)
[2017-06-09] MEDS ORDERED: LORazepam 2 MG/ML INJ IM PRN (15:42)
--- NOTE | 2017-06-09 15:57 | SOAPPROG ---
SOIKER Progress Note Assessment/Plan: Assessment: 32 yo man with h/o Schizoaffective disorder, bipolar type and IDD/PDD. Plan: 06/09/17 15:47 1. [facility] by phone with Bjorn GALLAGHER present. [facility] states that patient is participating in [employer] day program which was set up through Laura. She says patient started going on day trips with mentor through [employer] a week ago , and started acting out sexually and becoming more difficult to control at home. He started refusing meds at this time. [facility] has meeting with Alisha RUIZ, on Monday06/13/17 to discuss potential placements outside the home. [facility] would like [facility] to consider a residential center. MD encouraged [facility] to consider this option which will provide more structure and support for patient and is likely to result in better compliance with treatment. [facility] said she didn't want patient "living in a place like that" where he would "picker and packer more bad habits." 2. MD recommended starting Invega as patient has been on some type of atypical or neuroleptic since adolescence per records. He was taking Risperdal in [place] until he was switched to Clozaril more recently. He had been on Risperdal during previous admission last month, however, Dr. Wu d/c'd med d/t concerns about catatonia. Patient does not present with catatonia during this admission. [facility] gave consent to trial of Invega. suggested patient could be tried on Invega Sustenna if he tolerates PO Invega. [facility] agreed with this plan. MD later spoke to Noe Acosta's outpatient psychiatrist. Dr. Melendez also agreed with plan for trial of SINTIA Invega in addition to VPA for mood, behavior and thought process. 3. Dr. Melendez said he plans to meet with patient on 06/19/17. 4. [facility] says patient has appointment with Dr. Prashanth Katz, a manager cafe, for an evaluation on 06/16/17. 5. Will monitor patient over weekend. D/C when stable. [facility] says he can return to her house while she seeks possible long-term placement elsewhere. Subjective: Met with patient, reviewed chart and d/w staff. [facility], by phone with Bjorn GALLAGHER present. [facility] states that patient is participating in [employer] day program which was set up through Laura. She says patient started going on day trips with mentor through [employer] a week ago, and started acting out sexually and becoming more difficult to control at home. He started refusing meds at this time. [facility] has meeting with Alisha RUIZ, on Monday06/13/17 to discuss potential placements outside the home. [facility] would like [facility] to consider a residential center. MD encouraged [facility] to consider this option which will provide more structure and support for patient and is likely to result in better compliance with treatment. [facility] said she didn't want patient "living in a place like that" where he would "picker and packer more bad habits." recommended starting Invega as patient has been on some type of atypical or neuroleptic since adolescence per records. He was taking Risperdal in [place] until he was switched to Clozaril more recently. He had been on Risperdal during previous admission last month, however , Dr. Wu d/c'd med d/t concerns about catatonia. Patient does not present with catatonia during this admission. [facility] gave consent to trial of Invega. suggested patient could be tried on Invega Sustenna if he tolerates PO Invega. [facility] agreed with this plan. later spoke to Noe Acosta's outpatient psychiatrist. Dr. Melendez also agreed with plan for trial of SINTIA Invega in addition to VPA for mood, behavior and thought process. Objective: Vital Signs Temp Pulse Resp BP Pulse Ox 36.7 C 100 15 115/82 H 99 06/08/17 11:00 06/08/17 11:00 06/08/17 11:00 06/08/17 11:00 06/08/17 11:00 MSE: Affect: Flat Mood: "OK" TP: Linear TC: No SI/HI, no delusions or hallucinations Insight/Judgment: Impaired - Time Spent With Patient Time Spent With Patient: 20" - Pending Discharge Pending Discharge Within 24 Hours: No Pending Discharge Within 48 Hours: No ICD10 Worksheet Patient Problems: Problems Problem Status Onset Psychosis Acute Schizophrenia Acute
[2017-06-10] MEDS: LORazepam 1 MG TAB PO SCH ×3 (08:14→21:49)
[2017-06-10] MEDS: BENZTROPINE MESYLATE 1 MG TAB PO SCH ×2 (08:14→21:50)
[2017-06-10] MEDS: PALIPERIDONE 3 MG TAB.ER PO SCH (08:14)
--- NOTE | 2017-06-10 13:08 | SOAPPROG ---
SOAP Progress Note Assessment/Plan: Assessment: 32 yo man with h/o Schizoaffective disorder, bipolar type and IDD/PDD. Plan: 06/09/17 15:47 1. [facility] with Bjorn GALLAGHER present. [facility] states that patient is participating in [employer] day program which was set up through Laura. She says patient started going on day trips with mentor through [employer] a week ago , and started acting out sexually and becoming more difficult to control at home. He started refusing meds at this time. [facility] has meeting with Alisha RUIZ, on Monday06/13/17 to discuss potential placements outside the home. [facility] would like [facility] to consider a residential center. MD encouraged [facility] to consider this option which will provide more structure and support for patient and is likely to result in better compliance with treatment. [facility] said she didn't want patient "living in a place like that" where he would "pickle pumper more bad habits." 2. MD recommended starting Invega as patient has been on some type of atypical or neuroleptic since adolescence per records. He was taking Risperdal in [place] until he was switched to Clozaril more recently. He had been on Risperdal during previous admission last month, however, Dr. Wu d/c'd med d/t concerns about catatonia. Patient does not present with catatonia during this admission. [facility] gave consent to trial of Invega. suggested patient could be tried on Invega Sustenna if he tolerates PO Invega. [facility] agreed with this plan. later spoke to Noe Acosta's outpatient psychiatrist. Dr. Melendez also agreed with plan for trial of SINTIA Invega in addition to VPA for mood, behavior and thought process. 3. Dr. Melendez said he plans to meet with patient on 06/19/17. 4. [facility] says patient has appointment with Dr. Prashanth Katz, a preschool adviser, for an evaluation on 06/16/17. 5. Will monitor patient over weekend. D/C when stable. [facility] says he can return to her house while she seeks possible long-term placement elsewhere. 06/10/17 13:04 1. Started Invega 6mg PO daily 2. Changed Depakote ER to 1,500mg HS 3. Plan to administer Invega Sustenna IM 234mg on 06/12/17 4. [facility] has consented to all med changes. She told MD and CCBjorn, on 06/09/17 that she wanted patient to have SINTIA Sustenna prior to d/c. 5. Patient has been following his behavior support plan. He is eating and drinking adequate amounts. He is eating > 75% of meals and drank > 500cc of fluids before 12 noon today. 6. Anticipate d/c on Monday. [facility] has agreed to pick him up. Subjective: Met with patient, reviewed chart and d/w staff. Patient was lying in bed, calm and relaxed. Later in day, MD talked to patient while he was sitting in chair by nurse's station. He is on ISB for making sexually inappropriate comments to staff, however, patient has been cooperative with staff directions and following his behavior support plan. He took all meds voluntarily today, including Invega PO. He denied any SE's or complaints with new meds. No evidence of EPS noted. Objective: Vital Signs Temp Pulse Resp BP Pulse Ox 36.2 C 71 14 106/63 99 06/10/17 06:00 06/10/17 06:00 06/10/17 06:00 06/10/17 06:00 06/10/17 06:00 MSE: Affect: Flat Mood: "Yeah, I'm OK" TP: Goal-directed TC: No AH/VH, no SI/ HI Insight/Judgment: Poor - Time Spent With Patient Time Spent With Patient: 20" - Pending Discharge Pending Discharge Within 24 Hours: No Pending Discharge Within 48 Hours: Yes Pending Discharge Date: 06/12/17 (Likely d/c on Monday. [facility] agrees to pick him up. ) Pending Discharge Time: 12:00 ICD10 Worksheet Patient Problems: Problems Problem Status Onset Psychosis Acute Schizophrenia Acute
[2017-06-10] MEDS: DIVALPROEX ER 500 MG TAB PO SCH (21:49)
[2017-06-11] MEDS: PALIPERIDONE 3 MG TAB.ER PO SCH (08:44)
[2017-06-11] MEDS: LORazepam 1 MG TAB PO SCH ×4 (08:44→22:27)
[2017-06-11] MEDS: BENZTROPINE MESYLATE 1 MG TAB PO SCH ×2 (08:44→22:26)
--- NOTE | 2017-06-11 15:08 | SOAPPROG ---
SOAP Progress Note Assessment/Plan: Assessment: 32 yo man with h/o Schizoaffective disorder, bipolar type and IDD/PDD. Plan: 06/09/17 15:47 1. [facility] with Bjorn GALLAGHER present. [facility] states that patient is participating in [employer] day program which was set up through Laura. She says patient started going on day trips with mentor through [employer] a week ago , and started acting out sexually and becoming more difficult to control at home. He started refusing meds at this time. [facility] has meeting with Alisha RUIZ, on Monday06/13/17 to discuss potential placements outside the home. [facility] a residential center. MD encouraged [facility] to consider this option which will provide more structure and support for patient and is likely to result in better compliance with treatment. [facility] said she didn't want patient "living in a place like that" where he would "grape picker more bad habits." 2. MD recommended starting Invega as patient has been on some type of atypical or neuroleptic since adolescence per records. He was [place] in [place] until he was switched to Clozaril more recently. He had been on Risperdal during previous admission last month, however, Dr. Wu d/c'd med d/t concerns about catatonia. Patient does not present with catatonia during this admission. [facility] gave consent to trial of Invega. suggested patient could be tried on Invega Sustenna if he tolerates PO Invega. [facility] agreed with this plan. later spoke to Noe Acosta's outpatient psychiatrist. Dr. Melendez also agreed with plan for trial of SINTIA Invega in addition to VPA for mood, behavior and thought process. 3. Dr. Melendez said he plans to meet with patient on 06/19/17. 4. [facility] says patient has appointment with Dr. Prashanth Katz, a information technology instructor, for an evaluation on 06/16/17. 5. Will monitor patient over weekend. D/C when stable. [facility] says he can return to her house while she seeks possible long-term placement elsewhere. 06/10/17 13:04 1. Started Invega 6mg PO daily 2. Changed Depakote ER to 1,500mg HS 3. Plan to administer Invega Sustenna IM 234mg on 06/12/17 4. [facility] has consented to all med changes. She told MD and CC, Bjorn, on 06/09/17 that she wanted patient to have SINTIA Sustenna prior to d/c. 5. Patient has been following his behavior support plan. He is eating and drinking adequate amounts. He is eating > 75% of meals and drank > 500cc of fluids before 12 noon today. 6. Anticipate d/c on Monday. [facility] has agreed to pick him up. 06/11/17 15:04 1. Patient refused IM Invega Sustenna which was scheduled for tomorrow AM. He says he is "afraid" of needles. 2. Patient will get VPA level in AM prior to d/c. Send results to Dr. Melendez. 3. Patient will d/c on Invega PO, Depakote and Ativan. 4. CC spoke to [facility], Rubina, who will pick patient up tomorrow at 12 noon. He has an appointment with Dr. Prashanth Katz for psychological evaluation on 06/16/17. He also has appt with Dr. Melendez on 06/19/17. 5. Place on [facility] until d/c tomorrow. 6. Patient slept 9 hrs last night, and has been eating >75% of meals and drinking adequate amounts of fluids. Subjective: Met with patient, reviewed chart and d/w staff. Patient presents calm, stable and polite. He is able to make requests appropriately and follows staff directions when prompted. He is following his behavior support plan and has not had any inappropriate behavior or comments in past 24 hrs. When not watching TV or eating meals, patient sits on his bed reading books. Objective: Vital Signs Temp Pulse Resp BP Pulse Ox 36.2 C 71 14 106/63 99 06/10/17 06:00 06/10/17 06:00 06/10/17 06:00 06/10/17 06:00 06/10/17 06:00 MSE: Affect: Flat Mood: "OK" TP: Linear, paucity of speech TC: Denies any SI/ HI, no AH/VH, no evidence of acute psychosis Insight/Judgment: Improved - Time Spent With Patient Time Spent With Patient: 20" - Pending Discharge Pending Discharge Within 24 Hours: No Pending Discharge Within 48 Hours: No ICD10 Worksheet Patient Problems: Problems Problem Status Onset Psychosis Acute Schizophrenia Acute
[2017-06-11] MEDS ORDERED: BENZTROPINE MESYLATE 2 MG/2 ML INJ IM PRN (17:03)
[2017-06-11] MEDS ORDERED: HALOPERIDOL LACT 5 MG/ML INJ IM PRN (17:03)
[2017-06-11] MEDS ORDERED: LORazepam 2 MG/ML INJ IM PRN (17:03)
[2017-06-11] MEDS: DIVALPROEX ER 500 MG TAB PO SCH (18:37)
--- NOTE | 2017-06-11 20:13 | BDS ---
[f rep st] BEHAVIORAL HEALTH DISCHARGE SUMMARY REASON FOR ADMISSION: This is a 32-year-old man with a history of bipolar disorder, with psychotic features, and autism spectrum disorder, brought to [facility] ED by [facility]. Patient was discharged from inpatient Behavioral Health Unit on [address] [place] [address] on 05/24/2017. He has been staying with his aunt since then. Aunt states that the patient had been doing really well when he first got out of the hospital for approximately the first week, then she says that he had become noncompliant with medications and was getting more agitated and difficult to control. Aunt told Chummer on the unit that the patient has recently started going on day outings with a group from [facility], and she said that, during those outings, he would become extremely agitated, more hypersexual, particularly toward 1 of the male staff members, and the aunt felt like changing his routine had caused him to decompensate. During the evaluation the ED, patient denied have any having any thoughts, plans, or intents to hurt himself or anybody else, though aunt says he has become more agitated and difficult to redirect at home. ADMITTING DIAGNOSES: 1. Bipolar type 1 disorder, most recent episode manic, with psychotic features. 2. Intellectual disability disorder. 3. Autism spectrum disorder by history. 4. Psychosocial stressors include intellectual disability, recent of parents, recent relocation to [place], noncompliance with meds, severe chronic mental illness. Admitting physical examination was performed by Dr. Evan Torres. Please see his H and P for details. No acute physical findings. ADMISSION LABS: White cell count was 4.65, hemoglobin 15.0, hematocrit 43.2, platelet count 117. Sodium 143, potassium 4.9, chloride 111, BUN 20, creatinine 0.9, glucose 73, calcium 9.4. Creatine kinase 266, CK-MB 4.56; those findings were decreased from the patient's previous admission when he had been recovering from rhabdomyolysis. Dr. Torres in his note noted that the patient's creatine kinase values were trending downward and had continued to be declining since his discharge in April. His urine tox screen, the only thing they have checked for was alcohol. His blood alcohol level was less than 10. HOSPITAL COURSE: When patient was initially admitted to [address] [place] [address], he arrived in an agitated state. He was combative and aggressive toward staff. He was given IM meds, including Haldol, Ativan, and Benadryl. Later on the same day, he agreed to take p.o. meds. He was placed back on his outpatient regimen of Depakote 1500 mg in the morning, and he was given an additional dose of 500 mg at h.s. He was also given Ativan 2 mg p.o. t.i.d. Patient took all medications p.o., even though he was on e-meds with the Haldol back up, but he was compliant with medications voluntarily, took all p.o. meds. Within a couple of hours of admission, the patient had already become more compliant and cooperative and was presenting much more the way he had at the time that he was discharged from [address] [place] [address] just 3 weeks prior. Staff who remembered him from that visit said that he looked as good as he did at the time that he was discharged in April. He was compliant with staff redirections. He thought he was following his behavioral health plan, which staff reviewed with him, which was the same as when he was here in April. He was not making any verbal or physical threats toward staff. He was able to be redirected when he did have sexually inappropriate behavior. He thought he followed directions. When he was told that he had to stay away from certain peers, he cooperated and, after his first day, there were there were a couple of incidents where he made verbally inappropriate comments, but there was no more sexualized behavior on the unit, no more disrobing, which had been a problem during his previous admission. On 06/09/2017, the MD spoke to the patient's aunt, who is his power of state's attorney by phone with the daycare worker, Ever. Aunt said the patient is participating in [facility] [employer] [facility] which was set up through [facility]. She says that she has a meeting with the case management assistant, Alisha, on Monday, 2017, to discuss potential placements outside the home. [facility] would like the [facility] to consider a residential center. MD encouraged [facility] to consider this option which would provide more structure and support for the patient and is likely to result in much better compliance with medication and treatment. Aunt said she did not want the patient "living in a place like that" where he would "turkey picker more bad habits." MD recommended starting Invega, as the patient has been on some type of atypical neuroleptics since adolescence. According to records, he was taking Risperdal in [place] until he was switched to Clozaril more recently. He had been on Risperdal during his previous admission last month. However, Dr. Wu discontinued the medication due to concerns about catatonia. Patient does not present with catatonia during this admission. [facility] gave consent to a trial of Invega. MD suggested patient could be tried on Invega Sustenna if he tolerates the p.o. Aunt agreed with his plan. MD later spoke to Dr. Zeeshan Melendez, patient's outpatient psychiatrist. Dr. Melendez also agreed with the plan for a trial of an atypical antipsychotic and agreed that a long-acting injectable, in addition to Depakote ,would be beneficial for the patient's mood, behavior, and thought process. Dr. Melendez said that he plans to meet with the patient on June 19. The aunt also has an appointment with Dr. Prashanth Katz, a marketing performance analyst, for a psychological evaluation on 06/16/2017. Over the weekend, the patient continued to demonstrate improvement. He was cooperative with his behavior plan. He took meds. He was compliant. He denied any side effects from Invega. There were no signs or symptoms of EPS. Patient also continued taking his Depakote and his Ativan as prescribed. He was eating and drinking appropriate amounts, eating greater than 75% of meals and drinking more than a 1000 cc of fluids per day. and daycare worker, Polina, followed up with the aunt over the weekend to give her reports on his situation. Aunt said that she was still planning on going to the meeting with the case management assistant, Alisha, on Monday but did not think that she wanted the patient to be placed in a residential treatment center here in [place]. She said she might pursue long-term residential program in [place], but she had not made up her mind yet. The aunt came to visit the patient on Monday, and she agreed that the patient was significantly improved from time of admission, that he was back to the baseline behavior that she reports him having when he first got out of the hospital before he started to decompensate and before he started to refuse medications. She said that she thought the Invega seemed to be helping him stabilize faster. Patient said that he had a fear of needles and that he did not want to receive the long-acting injectable Sustenna which had been ordered for him to get on day of discharge on 06/12/2017. told aunt that he would still recommend a long-acting injectable in order to increase compliance and that she should discuss it with Dr. Melendez and, if the patient establishes a good report with Dr. Melendez, he might be willing to take the long-acting injectable form of Invega Sustenna at some time in the future but that, as long as the patient was willing and cooperative with taking p.o. medications, he could remain on the p.o. Invega indefinitely, and recommended that, when the patient has his followup appointment with Dr. Melendez on 06/19/2017, Dr. Melendez might want to increase him from 6 mg daily to 9 mg daily but, at the current time, since the patient was stable, demonstrating appropriate behavior, he was sleeping well, eating well, not being agitated or aggressive, following directions, and complying with his behavior plan, that he was appropriate for discharge. Aunt agreed and said that she would pick the patient up on Monday at 12 noon. He would go back to stay with her and that she would follow up with outpatient services through [facility]. CONDITION AT DISCHARGE: Patient is stable. His affect is euthymic. He was voicing no thoughts of suicide. There was no evidence of acute psychotic behaviors. Patient was not responding to internal or external stimuli. He was not paranoid. There was no agitation or aggression. He was cooperative and compliant with treatment. DISCHARGE MEDICATIONS: Cogentin 1 mg p.o. b.i.d., Depakote ER 1500 mg p.o. q.h.s., Ativan 1 mg p.o. t.i.d., Invega 6 mg p.o. daily. DISCHARGE DIAGNOSES: 1. Bipolar disorder type 1, most recent episode manic with psychotic features. 2. Intellectual disability disorder. 3. Autism spectrum disorder by history. 4. Psychosocial stressors include intellectual disability, recent of parents, recent relocation to [place], medication noncompliance, severe chronic mental illness. DISPOSITION: Patient will have a Depakote level drawn on 06/12/2017 in the a.m. prior to his discharge. The plan is for him to discharge with the aunt at noon on Monday. Aunt is going to follow up with Alisha, the case management assistant from [facility] on 06/13/2017. The patient has an appoint with Dr. Prashanth Katz, behavioral psychologist, on 06/16/2017, and he also has an appointment with Dr. Zeeshan Melendez on 06/19/2017. ATTITUDE AT DISCHARGE: Patient is much more agreeable, pleasant, and cooperative at time of discharge. He is saying that he wants to get back home and that he is going to follow his aunt's rules and that he is going to be compliant with his outpatient treatment. LEGAL COURSE: Patient was placed on a short-term certification when his M1 hold on 06/11/2017. Short-term certification will be dropped at the time of discharge from the hospital. /[id number]/MODL MTDD
[2017-06-12] MEDS ORDERED: PALIPERIDONE PALMITATE 234 MG/1.5 ML SYR IM ONE (08:00)
[2017-06-12] MEDS: BENZTROPINE MESYLATE 1 MG TAB PO SCH ×2 (08:43→21:23)
[2017-06-12] MEDS: LORazepam 1 MG TAB PO SCH ×3 (08:44→21:24)
[2017-06-12] MEDS: PALIPERIDONE 3 MG TAB.ER PO SCH (08:44)
--- NOTE | 2017-06-12 15:42 | SOAPPROG ---
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 Patients aunt Rubina Herrera, guardian for medical decision making, called unit this afternoon and reported that she will not allow patient to return to her home due to conflict between patient and her . Plan: Patient is on a short term certification Continue Depakote 1500mg/day Continue Ativan 2mg TID for history of catatonic symptoms Continue Invega 6mg daily, started 06/10/17 Continue Cogentin 1mg BID for EPS Start Senokot to reduce risk of constipation with Cogentin Supportive care with ADLS Patient will need foster home placement 06/12/17 15:41 Subjective: CC: "Alright man" Patient denies problems. Denies mood swings, agitation, AH, or paranoia. Reports good appetite. Denies feeling stiff or slow. Denies anxiety. No somatic complaints. Objective: Vital Signs Temp Pulse Resp BP Pulse Ox 36 C 55 L 16 120/55 L 96 06/12/17 06:00 06/12/17 06:00 06/12/17 06:00 06/12/17 06:00 06/12/17 06:00 Alert WM, acne. Ambulatory, then sitting and eating potato chips. No tremors. Mild increased tone/cogwheeling but no tremors. Speech soft, few words. Mood 'alright man.' Affect restricted. Thoughts briefly organized with poverty of content. Denies SI or HI or AH or paranoia. Limited insight. Questionable judgment. Staff report patient slept 8 hours. Cooperative with PO medications and eating and drinking well. Inappropriate hypersexual behavior last night but redirectable. Cooperative with staff with ADLs. Valp 117 on 1500mg. - Time Spent With Patient Time Spent With Patient: 10 minutes - Pending Discharge Pending Discharge Within 24 Hours: No Pending Discharge Within 48 Hours: No ICD10 Worksheet Patient Problems: Problems Problem Status Onset Bipolar disorder Acute Schizophrenia Acute Psychosis Acute
[2017-06-12] MEDS ORDERED: LORazepam 1 MG TAB PO PRN (15:46)
[2017-06-12] MEDS: DIVALPROEX ER 500 MG TAB PO SCH (21:24)
[2017-06-12] MEDS: SENNOSIDES 1 TAB PO SCH (21:25)
--- NOTE | 2017-06-13 09:04 | SOAPPROG ---
SOAP Progress Note Assessment/Plan: Assessment: Bipolar Disorder I Manic Severe with psychotic and catatonic features Autism Spectrum Disorder Borderline Intellectual Functioning Patient is calm with mild slowing but has a history of severe agitation with impulsive hypersexual and combative behavior. Patients aunt Rubina Herrera, guardian for medical decision making, reported that she will not allow patient to return to her home due to conflict between patient and her . Patient has mild EPS and odd posturing at times but reportedly cooperative with medication and eating partial meals. Plan: Patient is on a short term certification Apply for court ordered medications - history of recurrent non-compliance Continue Depakote 1500mg/day Continue Ativan 2mg TID for history of catatonic symptoms Reduce Invega 3mg daily Continue Cogentin 1mg BID for EPS Senokot to reduce risk of constipation with Cogentin Supportive care with ADLS Patient will need foster home placement Monitor % meals taken, PO fluid intake; Vitals BID 06/13/17 09:04 Subjective: CC: "I'm OK" Patient denies problems. Unable to explain why he is in the hospital or goals for treatment. Denies feeling stiff or slow. Agrees to continue medication but unable to explain why he is on medication. Denies pain or constipation or difficulty urinating. Denies mood swings or agitation. Objective: Vital Signs Temp Pulse Resp BP Pulse Ox 36 C 55 L 16 120/55 L 96 06/12/17 06:00 06/12/17 06:00 06/12/17 06:00 06/12/17 06:00 06/12/17 06:00 Alert WM ambulating slowly. Internal preoccupation at times. Speech hypophonic with few words. Mild increased tone. Mood "OK" affect restricted. Denies SI or HI or AH or paranoia. No insight. Questionable judgment. Staff report patient cooperative with medication and slept, eating partial meals. - Time Spent With Patient Time Spent With Patient: 10 minutes - Pending Discharge Pending Discharge Within 24 Hours: No Pending Discharge Within 48 Hours: No ICD10 Worksheet Patient Problems: Problems Problem Status Onset Bipolar disorder Acute Psychosis Acute Schizophrenia Acute
[2017-06-13] MEDS: BENZTROPINE MESYLATE 1 MG TAB PO SCH ×2 (09:28→20:18)
[2017-06-13] MEDS: LORazepam 1 MG TAB PO SCH ×3 (09:28→20:18)
[2017-06-13] MEDS: PALIPERIDONE 3 MG TAB.ER PO SCH (09:29)
[2017-06-13 19:50] VITALS: RESP 14; TEMP 97.4
[2017-06-13] MEDS: SENNOSIDES 1 TAB PO SCH (20:19)
[2017-06-13] MEDS: DIVALPROEX ER 500 MG TAB PO SCH (20:19)
[2017-06-14 06:39] VITALS: BP 88/50; PULSE 55; O2SAT 98
[2017-06-14] MEDS: BENZTROPINE MESYLATE 1 MG TAB PO SCH (08:24)
[2017-06-14] MEDS: LORazepam 1 MG TAB PO SCH (08:24)
[2017-06-14] MEDS: PALIPERIDONE 3 MG TAB.ER PO SCH (08:24)
--- NOTE | 2017-06-14 08:28 | SOAPPROG ---
SOAP Progress Note Assessment/Plan: Assessment: Bipolar Disorder I Manic Severe with psychotic and catatonic features Autism Spectrum Disorder Borderline Intellectual Functioning Patient is calm with mild slowing but has a history of severe agitation with impulsive hypersexual and combative behavior. Patients aunt Rubina Herrera, guardian for medical decision making, reported that she will not allow patient to return to her home due to conflict between patient and her . Patient has been calm with minimal speech, ate 25% lunch, 50% dinner, 100% PM snack yesterday Plan: Patient is on a short term certification Applied for court ordered medications - history of recurrent non-compliance Continue Depakote 1500mg/day Continue Ativan 2mg TID for history of catatonic symptoms Continue Invega 3mg daily Continue Cogentin 1mg BID for EPS Senokot to reduce risk of constipation with Cogentin Supportive care with ADLS Patient will need foster home placement or residential care facility placement Monitor % meals taken, PO fluid intake; Vitals BID 06/14/17 08:25 Subjective: CC: "I'm OK" Patient denies problems. Denies feeling stiff or slow. Reports 'good' mood. Denies anxiety, paranoia, or AH. Denies violent or suicidal thoughts. Objective: Vital Signs Temp Pulse Resp BP Pulse Ox 36.3 C 55 L 14 88/50 L 98 06/14/17 06:00 06/14/17 06:00 06/14/17 06:00 06/14/17 06:00 06/14/17 06:00 Alert WM, ambulatory, drinking gatorade. Speech soft few words. Mood 'OK, good ' Affect restricted. Drinking gatorade with prompts. Thoughts briefly organized with poverty of content. Denies SI or HI or AH or paranoia. Insight limited/poor. Judgment questionable. Staff report patient ate 25% lunch, 50% dinner, 100% of PM snack. Calm and following prompts and directions on unit. - Time Spent With Patient Time Spent With Patient: 10 minutes - Pending Discharge Pending Discharge Within 24 Hours: No Pending Discharge Within 48 Hours: No ICD10 Worksheet Patient Problems: Problems Problem Status Onset Bipolar disorder Acute Psychosis Acute Schizophrenia Acute
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
== END 2017-06-14 13:18 | disposition home or self-care (01) | DRG 885 ==
LOC: BBEH 06-08 09:45 → MERGE 06-08 09:45
PROVIDERS: ADMIT Psychiatry & Neurology Psychiatry; ATTEND Psychiatry & Neurology Psychiatry
DX: F31.5 Bipolar disorder, current episode depressed, severe, with psychotic features (principal); F84.0 Autistic disorder; L70.9 Acne, unspecified; L21.9 Seborrheic dermatitis, unspecified; T43.506A Underdosing of unspecified antipsychotics and neuroleptics, initial encounter; F17.200 Nicotine dependence, unspecified, uncomplicated
CPT/HCPCS: G0480; J1200; J1630; J2060; J2426

== ENCOUNTER 2017-11-21 09:22 | Emergency (ER) | payer OTHER, MEDICAID ==
[~2017-11-21 09:22] MED LIST: HALOPERIDOL LACT 5 MG/ML INJ ONE; LORazepam 2 MG/ML INJ ONE
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
[2017-11-21] MEDS ORDERED: SKIN ADHESIVE (DERMABOND) 1 EACH TP ONE (10:00)
[2017-11-21] MEDS ORDERED: OLANZapine DISINTEGR 10 MG TAB ONE (10:04)
[2017-11-21] MEDS ORDERED: OLANZapine 5 MG TAB PO ONE (10:06)
[2017-11-21] MEDS ORDERED: OLANZapine DISINTEGR 5 MG TAB ONE (10:12)
[2017-11-21 10:27] LABS: PLATELET COUNT 132 10^3/uL (150-400)
[2017-11-21 10:37] VITALS: BP 148/70
== END 2017-11-21 10:36 ==
LOC: EDUNIT#
PROC: 0HQFXZZ Repair Right Hand Skin, External Approach (ICD-10-PCS; principal; 2017-11-21)
DX: S61.212A Laceration without foreign body of right middle finger without damage to nail, initial encounter (principal); X78.1XXA Intentional self-harm by knife, initial encounter; F84.0 Autistic disorder; F20.9 Schizophrenia, unspecified; Z87.891 Personal history of nicotine dependence
CPT/HCPCS: 12001; 99285; J1630; J2060; 80305; G0480